=== PATIENT | female | born 1945 | race Caucasian/White ===

== ENCOUNTER 2019-08-29 07:57 | Outpatient (CLI) | payer MEDICARE, SELFPAY ==
[2019-08-29 08:50] LABS: Alanine Aminotransferase 13 U/L (4-35); Albumin Level 4.1 g/dL (3.5-5.1); Alkaline Phosphatase 81 U/L (38-126); Aspartate Amino Transferase 22 U/L (14-36); Bilirubin,Total 0.5 mg/dL (0.2-1.3); Blood Urea Nitrogen 13 mg/dL (7-17); Carbon Dioxide 26 mmol/L (22-30); Chloride 105 mmol/L (98-107); Cholesterol 198 mg/dL (0-200); Estimated Glomerular Filt Rate > 60; Glucose 97 mg/dL (65-105); HDL Direct 49 mg/dL; Sodium 139 mmol/L (137-145); Triglycerides 90 mg/dL (<150)
[2019-08-29 09:01] LABS: LDL Cholesterol Direct 111 mg/dL
[2019-08-29 09:14] LABS: Vitamin D 25 Hydroxy 33.2 ng/mL
== END 2019-08-29 07:58 | disposition home or self-care (01) ==
PROVIDERS: PCP Family Medicine; Visit Provider Family Medicine
DX: E78.2 Mixed hyperlipidemia (principal); E21.3 Hyperparathyroidism, unspecified; E55.9 Vitamin D deficiency, unspecified
CPT/HCPCS: 36415; 80053; 80061; 82306; 83970

== ENCOUNTER 2019-11-01 08:49 | Outpatient (CLI) | payer MEDICARE, SELFPAY ==
--- NOTE | ~2019-11-01 | DEXA_ITS ---
Bone Density Report Name: Yoanna Parikh Age: 74 Sex: Female Ethnicity: White Date of : 1945 Indication: postmenopausal osteoporosis; height loss; prior fracture; Referring Provider: CHAD ROTH Study: Bone densitometry was performed. Exam Date: November 01, 2019 Accession number: [id number] Bone Density: Region BMD T-score Z-score Classification AP Spine (L1-L4) 0.733 -2.9 -0.5 Osteoporosis Femoral Neck (Left) 0.549 -2.7 -0.6 Osteoporosis Total Hip (Left) 0.709 -1.9 -0.1 Osteopenia Total Hip Bilateral Avg 0.719 -1.9 -0.1 Osteopenia Femoral Neck (Right) 0.632 -2.0 0.1 Osteopenia Total Hip (Right) 0.728 -1.8 0.0 Osteopenia World Health Organization criteria for BMD impression classify patients as: Normal (T-score at or above -1.0), Osteopenia (T-score between -1.0 and -2.5), or Osteoporosis (T-score at or below -2.5). 10-year Fracture Risk: FRAX not reported because: Some T-score for Spine Total or Hip Total or Femoral Neck at or below -2.5 Prior hip or vertebral fracture Previous Exams: Region Exam Age BMD T-score BMD Change BMD Change Date g/cm2 vs Baseline vs Previous AP Spine(L1-L4) 11/01/2019 74 0.733 -2.9 -0.061(-7.7%)# 0.004(0.6%)# 06/01/2017 72 0.729 -2.9 -0.066(-8.2%)# -0.011(-1.5%)# 05/31/2015 70 0.740 -2.8 -0.054(-6.8%)# -0.042(-5.3%)# 11/28/2012 67 0.782 -2.4 -0.013(-1.6%)# -0.025(-3.1%)# 08/08/2010 65 0.806 -2.2 0.012(1.5%) -0.028(-3.4%)* 07/30/2008 63 0.835 -1.9 0.040(5.1%)* -0.008(-1.0%) 07/08/2007 62 0.843 -1.9 0.048(6.1%)* 0.047(5.9%)* 06/04/2006 61 0.796 -2.3 0.002(0.2%) 0.034(4.5%)* 06/02/2004 59 0.762 -2.6 -0.033(-4.1%)* -0.033(-4.1%)* 04/27/2002 57 0.794 -2.3 Total Hip(Left) 11/01/2019 74 0.709 -1.9 -0.094(-11.7%) -0.059(-7.7%)* 06/01/2017 72 0.767 -1.4 -0.035(-4.4%)# 0.005(0.6%) 05/31/2015 70 0.763 -1.5 -0.040(-5.0%)# -0.022(-2.8%)# 11/28/2012 67 0.785 -1.3 -0.018(-2.3%)# -0.062(-7.4%)# 08/08/2010 65 0.847 -0.8 0.044(5.5%)* 0.034(4.2%)* 07/30/2008 63 0.813 -1.1 0.010(1.2%) 0.008(1.0%) 07/08/2007 62 0.805 -1.1 0.002(0.3%) 0.006(0.7%) 06/04/2006 61 0.799 -1.2 -0.004(-0.5%) -0.017(-2.0%) 06/02/2004 59 0.816 -1.0 0.013(1.6%) 0.013(1.6%) 04/27/2002 57 0.803 -1.1 Total Hip(Right) 11/01/2019 74 0.728 -1.8 -0.116(-13.7%) -0.086(-10.6%) 06/01/2017 72 0.814 -1.0 -0.029(-3.5%)# 0.015(1.8%) 05/31/2015 70 0.799 -1.2 -0.044(-5.2%)# -0.014(-1.7%)# 11/28/2012 67 0.813 -1.1 -0.031(-3.6%)# -0.059(-6.8%)# 08/08/2010 65 0.873 -0.6 0.029
--- NOTE | ~2019-11-01 | MM_ITS ---
EXAMINATION: MM screening [facility]uel BI w yasir HISTORY: Screening mammogram TECHNIQUE: Craniocaudal and mediolateral oblique 3-D tomosynthesis images were obtained and synthetic 2-D images were generated. CAD analysis was submitted and interpreted. COMPARISON: 06/20/2018 diagnostic right digital mammogram 05/25/2018, 05/11/2017, 05/07/2016 bilateral digital screening mammogram examinations BREAST PARENCHYMAL COMPOSITION: There are scattered areas of fibroglandular density. FINDINGS: Benign intramammary lymph nodes are noted on the left. Stable mild fibroglandular asymmetry . . There is no evidence of suspicious mass, calcification, or architectural distortion to suggest kaylee gnancy in either breast. There has been no suspicious interval change. IMPRESSION: 1. No mammographic evidence of malignancy. 2. Recommend routine screening mammography in one year. BI-RADS Category 2: Benign finding(s). Reviewed, dictated and finalized at location A.
== END 2019-11-01 08:50 | disposition home or self-care (01) ==
PROVIDERS: PCP Family Medicine; Visit Provider Family Medicine
DX: Z12.31 Encounter for screening mammogram for malignant neoplasm of breast (principal); M81.0 Age-related osteoporosis without current pathological fracture; Z78.0 Asymptomatic menopausal state; R92.8 Other abnormal and inconclusive findings on diagnostic imaging of breast; M85.852 Other specified disorders of bone density and structure, left thigh; M85.851 Other specified disorders of bone density and structure, right thigh
CPT/HCPCS: 77063; 77067; 77080

== ENCOUNTER 2020-11-21 16:06 | Outpatient (CLI) | payer MEDICARE, SELFPAY ==
--- NOTE | ~2020-11-21 | MM_ITS ---
EXAMINATION: MM screening [facility] BI w yasir HISTORY: Screening mammogram TECHNIQUE: Craniocaudal and mediolateral oblique 3-D tomosynthesis images were obtained and synthetic 2-D images were generated. CAD analysis was submitted and interpreted. COMPARISON: 11/01/2019, 06/20/2018, 05/25/2018, 05/11/2017 BREAST PARENCHYMAL COMPOSITION: There are scattered areas of fibroglandular density. FINDINGS: There is no evidence of suspicious mass, calcification, or architectural distortion to sugg est malignancy in either breast. There has been no suspicious interval change. IMPRESSION: 1. No mammographic evidence of malignancy. 2. Recommend routine screening mammography in one year. BI-RADS Category 1: Negative Reviewed, dictated and finalized at location A.
== END 2020-11-21 16:07 | disposition home or self-care (01) ==
LOC: ANHIMG 16:10
PROVIDERS: PCP Family Medicine; Visit Provider Family Medicine
DX: Z12.31 Encounter for screening mammogram for malignant neoplasm of breast (principal)
CPT/HCPCS: 77063; 77067

== ENCOUNTER 2021-03-25 07:08 | Outpatient (CLI) | payer MEDICARE, SELFPAY ==
[2021-03-25 08:07] LABS: Hematocrit 40.1 % (37.0-47.0); Hemoglobin 12.9 g/dL (12.0-15.0); Mean Corpuscular HGB Conc 32.2 g/dl (32-36); Mean Corpuscular Hemoglobin 30.9 pg (26-34); Mean Corpuscular Volume 95.9 fl (80-100); Mean Platelet Volume 11.5 fl (7.4-10.4); Platelet Count Result 301 k/mm3 (150-375); Red Blood Count 4.18 M/mm3 (4.2-5.4); Red Cell Distribution Width 12.9 % (11.5-14.5)
[2021-03-25 08:17] LABS: Alanine Aminotransferase 16 U/L (4-35); Albumin Level 4.1 g/dL (3.5-5.1); Alkaline Phosphatase 80 U/L (38-126); Anion Gap 7 mmol/L (8-16); Aspartate Amino Transferase 22 U/L (14-36); Bilirubin,Total 0.5 mg/dL (0.2-1.3); Blood Urea Nitrogen 19 mg/dL (7-17); Calcium 10.3 mg/dL (8.4-10.2); Carbon Dioxide 25 mmol/L (22-30); Chloride 107 mmol/L (98-107); Cholesterol 194 mg/dL (0-200); Estimated Glomerular Filt Rate > 60; Glucose 100 mg/dL (65-110); HDL Direct 45 mg/dL; Potassium 3.8 mmol/L (3.4-5.0); Sodium 139 mmol/L (137-145); Triglycerides 89 mg/dL (<150)
[2021-03-25 08:28] LABS: LDL Cholesterol Direct 109 mg/dL
[2021-03-25 08:32] LABS: Hemoglobin A1C 5.5 % (<5.7)
[2021-03-25 09:18] LABS: Vitamin D 25 Hydroxy 27.4 ng/mL
[2021-04-11 23:51] LABS: Parathyroid Hormone Related Pr 9 pg/mL (11-20)
== END 2021-03-25 07:09 | disposition home or self-care (01) ==
LOC: ANHLAB 07:10
PROVIDERS: PCP Family Medicine; Visit Provider Family Medicine
DX: E61.1 Iron deficiency (principal); E21.0 Primary hyperparathyroidism; R53.83 Other fatigue; E55.9 Vitamin D deficiency, unspecified; E11.9 Type 2 diabetes mellitus without complications; E78.2 Mixed hyperlipidemia; R68.89 Other general symptoms and signs
CPT/HCPCS: 36415; 80053; 80061; 82306; 83036; 83519; 84443; 85027

== ENCOUNTER 2021-09-30 07:11 | Outpatient (CLI) | payer MEDICARE, SELFPAY ==
[2021-09-30 07:53] LABS: Alanine Aminotransferase 18 U/L (6-35); Albumin Level 4.2 g/dL (3.5-5.1); Alkaline Phosphatase 80 U/L (38-126); Anion Gap 9 mmol/L (8-16); Aspartate Amino Transferase 26 U/L (14-36); Bilirubin,Total 0.3 mg/dL (0.2-1.3); Blood Urea Nitrogen 12 mg/dL (7-17); Calcium 9.6 mg/dL (8.4-10.2); Carbon Dioxide 27 mmol/L (22-30); Chloride 104 mmol/L (98-107); Cholesterol 179 mg/dL (0-200); Estimated Glomerular Filt Rate > 60; Glucose 101 mg/dL (65-110); HDL Direct 43 mg/dL; Potassium 3.8 mmol/L (3.4-5.0); Sodium 140 mmol/L (137-145); Triglycerides 89 mg/dL (<150)
[2021-09-30 08:03] LABS: LDL Cholesterol Direct 96 mg/dL
[2021-10-04 00:02] LABS: Vitamin D 1,25 (OH)2 Total 59 pg/mL (18-72); Vitamin D2 1,25 (OH)2 9 pg/mL; Vitamin D3 1,25 (OH)2 50 pg/mL
== END 2021-09-30 07:12 | disposition home or self-care (01) ==
PROVIDERS: PCP Family Medicine; Visit Provider Physician Assistant
DX: E55.9 Vitamin D deficiency, unspecified (principal); Z13.1 Encounter for screening for diabetes mellitus; Z13.220 Encounter for screening for lipoid disorders; E78.2 Mixed hyperlipidemia
CPT/HCPCS: 36415; 80053; 80061; 82652

== ENCOUNTER 2022-01-28 07:43 | Outpatient (CLI) | payer MEDICARE, SELFPAY ==
--- NOTE | ~2022-01-28 | DEXA_ITS ---
Bone Density Report Name: JOSE RAUL BOLES Age: 77 Sex: Female Ethnicity: White Date of : 1945 Indication: postmenopausal osteoporosis; monitoring treatment; height loss; prior fracture; Referring Provider: CHAD ROTH Study: Bone densitometry was performed. Exam Date: January 28, 2022 Accession number: [id number] Bone Density: Region BMD T-score Z-score Classification AP Spine(L1-L4) 0.739 -2.8 -0.3 Osteoporosis Femoral Neck (Left) 0.552 -2.7 -0.5 Osteoporosis Total Hip (Left) 0.711 -1.9 0.0 Osteopenia Femoral Neck (Right) 0.634 -1.9 0.2 Osteopenia Total Hip (Right) 0.726 -1.8 0.1 Osteopenia Total Hip Mean 0.718 -1.9 0.1 Osteopenia World Health Organization criteria for BMD impression classify patients as: Normal (T-score at or above -1.0), Osteopenia (T-score between -1.0 and -2.5), or Osteoporosis (T-score at or below -2.5). 10-year Fracture Risk: FRAX not reported because: Some T-score for Spine Total or Hip Total or Femoral Neck at or below -2.5 Treated for osteoporosis Previous Exams: Region Exam Age BMD T-score BMD Change BMD Change Date g/cm2 vs Baseline vs Previous AP Spine (L1-L4) 01/28/2022 77 0.739 -2.8 -0.043 (-5.5%) 0.005 (0.7%) 11/01/2019 74 0.733 -2.9 -0.048 (-6.2%) 0.004 (0.6%)# 06/01/2017 72 0.729 -2.9 -0.053 (-6.8%) -0.011 (-1.5%) 05/31/2015 70 0.740 -2.8 -0.042 (-5.3%) -0.042 (-5.3%) 11/28/2012 67 0.782 -2.4 Total Hip(Left) 01/28/2022 77 0.711 -1.9 -0.074 (-9.4%) 0.002 (0.3%) 11/01/2019 74 0.709 -1.9 -0.076 (-9.7%) -0.059 (-7.7%) 06/01/2017 72 0.767 -1.4 -0.017 (-2.2%) 0.005 (0.6%) 05/31/2015 70 0.763 -1.5 -0.022 (-2.8%) -0.022 (-2.8%) 11/28/2012 67 0.785 -1.3 Total Hip(Right) 01/28/2022 77 0.726 -1.8 -0.087 (-10.7% -0.002 (-0.2%) 11/01/2019 74 0.728 -1.8 -0.085 (-10.5% -0.086 (-10.6% 06/01/2017 72 0.814 -1.0 0.001 (0.1%)# 0.015 (1.8%) 05/31/2015 70 0.799 -1.2 -0.014 (-1.7%) -0.014 (-1.7%) 11/28/2012 67 0.813 -1.1 *Denotes significance at 95% confidence level, LSC for AP Spine = 0.022 g/cm2, LSC for Total Hip = 0.027 g/cm2 # Denotes dissimilar scan types or analysis methods Clinical Information Provided by Patient: Has had a low trauma fracture Is being treated for osteoporosis Has used the following medications: Fosamax (i.e. alendronate) Patient maximum height was 62.5 Menopause Age: 46 No regular weight bearing exercise Drinks caffeinated beverages Onset
--- NOTE | ~2022-01-28 | MM_ITS ---
EXAMINATION: MM screening [facility]uel BI w yasir HISTORY: Screening TECHNIQUE: Craniocaudal and mediolateral oblique 3-D tomosynthesis images were obtained and synthetic 2-D images were generated. CAD analysis was submitted and interpreted. COMPARISON: Comparison to multiple prior studies sequentially, with oldest reviewed study dated 05/07. BREAST PARENCHYMAL COMPOSITION: There are scattered areas of fibroglandular density. FINDINGS: There is no evidence of suspicious mass, calcification, or architectural distortion to sugg est malignancy in either breast. There has been no suspicious interval change. IMPRESSION: 1. No mammographic evidence of malignancy. 2. Recommend routine screening mammography in one year. BI-RADS Category 1: Negative Reviewed, dictated and finalized at location B. N PERSON
[2022-01-28 09:16] LABS: Alanine Aminotransferase 23 U/L (6-35); Albumin Level 4.1 g/dL (3.5-5.1); Alkaline Phosphatase 82 U/L (38-126); Anion Gap 8 mmol/L (8-16); Aspartate Amino Transferase 27 U/L (14-36); Bilirubin,Total 0.5 mg/dL (0.2-1.3); Blood Urea Nitrogen 14 mg/dL (7-17); Calcium 9.4 mg/dL (8.4-10.2); Carbon Dioxide 26 mmol/L (22-30); Chloride 106 mmol/L (98-107); Estimated Glomerular Filt Rate > 60; Glucose 99 mg/dL (65-110); Potassium 3.8 mmol/L (3.4-5.0); Sodium 140 mmol/L (137-145)
[2022-01-28 09:35] LABS: Vitamin D 25 Hydroxy 24.8 ng/mL
== END 2022-01-28 07:44 | disposition home or self-care (01) ==
PROVIDERS: PCP Family Medicine; Visit Provider Family Medicine
DX: Z12.31 Encounter for screening mammogram for malignant neoplasm of breast (principal); Z78.0 Asymptomatic menopausal state; M81.0 Age-related osteoporosis without current pathological fracture; E21.3 Hyperparathyroidism, unspecified; M85.851 Other specified disorders of bone density and structure, right thigh; M85.852 Other specified disorders of bone density and structure, left thigh
CPT/HCPCS: 36415; 77063; 77067; 77080; 80053; 82306; 83970

== ENCOUNTER 2022-04-09 14:55 | Outpatient (CLI) | payer MEDICARE, SELFPAY ==
--- NOTE | ~2022-04-09 | US_ITS ---
EXAMINATION: US carotid duplex BI DATE: 04/09/2022 15:38 INDICATION: Paresthesias of the scan. Numbness. Left arm pain. TECHNIQUE: Grayscale, color Doppler, and pulsed Doppler images of the cervical carotid arteries were obtained. The degree of vessel stenosis is placed in one of the following categories: normal, <50%, 5 0-69%, >=70% but less than near-occlusion, near-occlusion, or total occlusion. Note that percent sten osis relative to normal distal artery lumen diameter is indirectly measured from velocity measurement s as described by Hudson, et al. Radiology 2003; 229:340-346. Notes: Normal: Peak systolic velocity <125 centimeters/sec and no plaque <50%. Peak systolic velocity <125 ( EDV <40; ICA/CCA PSV ratio <2.0; used these factors only a tandem lesions or low cardiac output or co ntralateral disease) 50-69 %: PSV 125-230 (EDV 40-100; ratio 2-4) >= 70% but less than near occlusion: PSV greater than 230 (EDV > 100; ratio> 4.0) Near Occlusion: PSV that is variable; markedly narrowed lumen Occlusion: Absent flow on color/spectral Doppler and no lumen on kennedy scale. COMPARISON: Ultrasound dated 02/13/2014. FINDINGS: RIGHT: The right common carotid artery (CCA) peak systolic velocity (PSV) is 65 cm/s. The right internal car otid artery (ICA) PSV is 71 cm/s. The right ICA end-diastolic velocity (EDV) is 26 cm/s. The right IC A/CCA PSV ratio is 1.1. The external carotid artery (ECA) PSV is 63 cm/s. There is antegrade flow in the right vertebral artery. LEFT: The left CCA PSV is 81 cm/s. The left ICA PSV is 71 cm/s. The left ICA EDV is 27 cm/s. The left ICA/C CA PSV ratio is 0.9. The ECA PSV is 37 cm/s. There is antegrade flow in the left vertebral artery. IMPRESSION: 1. Less than 50% stenosis in the right internal carotid artery by sonographic criteria. 2. Less than 50% stenosis in the left internal carotid artery by sonographic criteria. Reviewed, dictated and finalized at location A. NUE RESEARCH ANALYST IMPRESSION: 1. Less than 50% stenosis in the right internal carotid artery by sonographic keyur keating. 2. Less than 50% stenosis in the left internal carotid artery by sonographic shelley rascon.
== END 2022-04-09 14:56 | disposition home or self-care (01) ==
PROVIDERS: PCP Family Medicine; Visit Provider Family Medicine
DX: R20.2 Paresthesia of skin (principal); I65.23 Occlusion and stenosis of bilateral carotid arteries
CPT/HCPCS: 93880

== ENCOUNTER 2022-12-17 07:04 | Outpatient (CLI) | payer MEDICARE, SELFPAY ==
[2022-12-17 07:52] LABS: Basophils Percent Auto 0.8 % (0.2-1.2); Eosinophils Absolute Auto 0.1 K/mm3 (0-0.3); Eosinophils Percent Auto 2.8 % (0-4.4); Hematocrit 38.5 % (37.0-47.0); Hemoglobin 11.8 g/dL (12.0-15.0); Immature Granulocyte Absolute 0.01 K/mm3 (0.00-0.031); Immature Granulocyte Percent A 0.2 % (0-0.5); Lymphocytes Absolute Auto 2.29 K/mm3 (0.9-3.2); Mean Corpuscular HGB Conc 30.6 g/dl (32-36); Mean Corpuscular Hemoglobin 27.1 pg (26-34); Mean Corpuscular Volume 88.5 fl (80-100); Monocytes Absolute Auto 0.5 K/mm3 (0.1-0.6); Neutrophils Absolute Auto 2.1 K/mm3 (1.3-6.7); Neutrophils Percent Auto 41.2 % (45.5-73.1); Platelet Count Result 332 k/mm3 (150-375); Red Blood Count 4.35 M/mm3 (4.2-5.4); Red Cell Distribution Width 16.1 % (11.5-14.5); White Blood Count 5.1 K/mm3 (4.5-10.0)
[2022-12-17 08:01] LABS: Alanine Aminotransferase 17 U/L (6-35); Albumin Level 4.2 g/dL (3.5-5.1); Alkaline Phosphatase 85 U/L (38-126); Anion Gap 7 mmol/L (8-16); Aspartate Amino Transferase 22 U/L (14-36); Bilirubin,Total 0.7 mg/dL (0.2-1.3); Blood Urea Nitrogen 13 mg/dL (7-17); Calcium 9.9 mg/dL (8.4-10.2); Carbon Dioxide 26 mmol/L (22-30); Chloride 105 mmol/L (98-107); Cholesterol 191 mg/dL (0-200); Estimated Glomerular Filt Rate > 60; Glucose 98 mg/dL (65-110); HDL Direct 48 mg/dL; Potassium 3.6 mmol/L (3.4-5.0); Sodium 138 mmol/L (137-145); Triglycerides 93 mg/dL (<150)
[2022-12-17 08:13] LABS: LDL Cholesterol Direct 104 mg/dL; Parathyroid Intact 180.2 pg/mL (7.5-53.5)
[2022-12-17 08:24] LABS: Vitamin D 25 Hydroxy 24.4 ng/mL
[2022-12-19 13:14] LABS: Ionized Calcium 5.4 mg/dL (4.7-5.5)
== END 2022-12-17 07:05 | disposition home or self-care (01) ==
PROVIDERS: PCP Family Medicine; Visit Provider Family Medicine
DX: E78.2 Mixed hyperlipidemia (principal); Z00.00 Encounter for general adult medical examination without abnormal findings; E55.9 Vitamin D deficiency, unspecified; I10 Essential (primary) hypertension; R53.83 Other fatigue
CPT/HCPCS: 36415; 80053; 80061; 82306; 82330; 83970; 85025

== ENCOUNTER 2023-01-26 01:14 | Day surgery (SDC) | payer MEDICARE, SELFPAY ==
[2023-01-12 13:05] VITALS: BMI 28.3
--- NOTE | 2023-01-22 13:52 | SUR.PREOP ---
Patient called regarding upcoming procedure. Message left on patient's voicemail regarding preop instructions, appointment times, and procedure prep.
[2023-01-26 08:09] VITALS: BP 135/89; PULSE 83; RESP 16; TEMP 36.2; O2SAT 99; BMI 29.5
[2023-01-26] MEDS: LACTATED RINGERS 1,000 ML 150 ML IV CONT (08:17)
--- NOTE | 2023-01-26 08:24 | PM.HPGS ---
History of Present Illness History of Present Illness Consent: Risks, benefits, and alternatives have been discussed and questions answered. Patient agrees to proceed with procedure. Chief complaint: hx of colon polyps Narrative: Yoanna Parikh is a 78 year old female Presents for screening colonoscopy. Patient has a history of adenomatous colon polyps in the past. Most recent colonoscopy 2014 had a benign adenomatous colon polyp. Patient reports her current weight appetite bowel movements are normal. She denies abdominal pain. She has had no bleeding. Family history is noncontributory. Review of Systems Review of Systems: Review of systems noncontributory. [facility] Past Medical History Medical History Acne rosacea Chronic left-sided low back pain without sciatica Closed burst fracture of thoracic vertebra Essential (primary) hypertension FH: brain aneurysm Gastroesophageal reflux disease Mixed hyperlipidemia Postmenopausal osteoporosis Prediabetes Primary hyperparathyroidism Vitamin B12 deficiency Vitamin D deficiency Family History Family History Mother Hypertension Father Hypertension Other Family history of cardiovascular disease Family history of chronic obstructive pulmonary disease Family history of thyroid disease Social History Social History Smoking status: Never smoker Second hand tobacco smoke exposure: No Alcohol intake: never Substance use: never Substance use type: does not use Lack of Transportation: No Lack of Food: Never True Current Housing: I Have Housing Concerned About Future Housing: No Difficulty Paying Gas/Electric Bills: No Difficulty Paying for Meds: No Currently Unemployed: No Education: Master's Degree or Higher Difficulty w/ Childcare or Family Care: No Living arrangements: with family Occupation/Education: retired Gender identity (if verbalized by the patient): Female Spiritual care concerns: No Agree to blood products: Yes Meds Home Medications and Allergies Home Medications Medication Instructions Recorded Confirmed Type alendronate 70 mg tablet (Fosamax) 70 mg PO WEEKLY #14 tabs 10/02/21 01/26/23 Rx amlodipine 5 mg tablet See Rx Instructions .Route 09/30/22 01/26/23 Rx .COMPLEX #90 tabs losartan 50 mg tablet 50 mg PO DAILY #90 tabs 10/07/22 01/26/23 Rx Allergies Allergy/AdvReac Type Severity Reaction Status Date / Time lisinopril AdvReac Mild Cough Verified 01/26/23 08:08 Vital Signs Vital Signs - 24 hr 01/26/23 08:09 Temperature 97.2 F L Pulse Rate 83 Respiratory Rate 16 Blood Pressure 135/89 Pulse Oximetry 99 Oxygen Delivery Room Air Exam Narrative: Physical exam reveals patient to be alert. Vital signs stable. HEENT exam is unremarkable. Patient is anicteric. Lungs are clear to auscultation and percussion. Heart is without murmur or extra sounds. Abdomen bowel sounds are present soft nontender with no organomegaly. Digital external rectal exam is normal. Assessment and Plan Assessment and plan (1) H/O adenomatous polyp of colon: Code(s): Z86.010 - Personal history of colonic polyps Status: Acute Assessment and Plan: Patient has a history of colon polyps in the past. Plan for surveillance colonoscopy at this time. Further recommendations may be given after endoscopy.
--- NOTE | 2023-01-26 09:35 | WPDANESEPPF ---
Anes - Initial Pre Proc Eval Procedure: Operation Date: 01/26/23 09:30 Proposed Procedures p Colonoscopy - Gregory Carbajal MD Date/Time: 01/26/23 09:35 Surgeon: Gregory Carbajal MD Pre Op Diagnosis: hx of colon polyps Patient Data Age: 78 Gender: F Height: 1.55 m Weight: 70.8 kg Last Vital Signs Temp 97.2 F L 01/26/23 08:09 Pulse 83 01/26/23 08:09 Resp 16 01/26/23 08:09 BP 135/89 01/26/23 08:09 Pulse Ox 99 01/26/23 08:09 O2 Del Method Room Air 01/26/23 08:09 Allergies Allergy/AdvReac Type Severity Reaction Status Date / Time lisinopril AdvReac Mild Cough Verified 01/26/23 08:08 Home Medications Medication Instructions Recorded Confirmed Type alendronate 70 mg tablet (Fosamax) 70 mg PO WEEKLY #14 tabs 10/02/21 01/26/23 Rx amlodipine 5 mg tablet See Rx Instructions .Route 09/30/22 01/26/23 Rx .COMPLEX #90 tabs losartan 50 mg tablet 50 mg PO DAILY #90 tabs 10/07/22 01/26/23 Rx Patient hx anesthesia problems: none Family hx anesthesia problems: none Results Review: All pre-operative results and documents have been reviewed as part of the pre-operative evaluation. [facility] Past Medical History Medical History Acne rosacea Chronic left-sided low back pain without sciatica Closed burst fracture of thoracic vertebra Essential (primary) hypertension FH: brain aneurysm Gastroesophageal reflux disease Mixed hyperlipidemia Postmenopausal osteoporosis Prediabetes Primary hyperparathyroidism Vitamin B12 deficiency Vitamin D deficiency Family History Family History Mother Hypertension Father Hypertension Other Family history of cardiovascular disease Family history of chronic obstructive pulmonary disease Family history of thyroid disease Social History Social History Smoking status: Never smoker Second hand tobacco smoke exposure: No Alcohol intake: never Substance use: never Substance use type: does not use Lack of Transportation: No Lack of Food: Never True Current Housing: I Have Housing Concerned About Future Housing: No Difficulty Paying Gas/Electric Bills: No Difficulty Paying for Meds: No Currently Unemployed: No Education: Master's Degree or Higher Difficulty w/ Childcare or Family Care: No Living arrangements: with family Occupation/Education: retired Gender identity (if verbalized by the patient): Female Spiritual care concerns: No Agree to blood products: Yes Anes - Eval Final PreProcedure Day of Procedure 01/26/23 09:35 Patient weight: normal Heart: regular rate and rhythm Lungs: clear to auscultation Airway: Mallampati scale class II Neurological: alert and oriented Last oral intake: >/= 8 hours ASA classification: III Emergent: no Anesthetic plan: proceed Anesthesia type and monitoring: general GIVS and standard monitoring Results Review: All pre-operative results and documents have been reviewed as part of the pre-operative evaluation. Informed Consent: The patient's anesthetic plan and its attendant risks and benefits were discussed with the patient/family/POA. Questions were solicited and answers provided to the satisfaction of the patient/family/POA.
[2023-01-26 10:00] VITALS: BP 113/66; PULSE 75; RESP 22; O2SAT 99
[2023-01-26 10:10] VITALS: BP 155/88; PULSE 63; RESP 21; O2SAT 100
[2023-01-26 10:20] VITALS: BP 135/85; PULSE 72; RESP 20; O2SAT 100
== END 2023-01-26 10:31 | disposition home or self-care (01) ==
PROVIDERS: PCP Family Medicine; Visit Provider Internal Medicine Gastroenterology
PROC: 0DJD8ZZ Inspection of Lower Intestinal Tract, Via Natural or Artificial Opening Endoscopic (ICD-10-PCS; CPT 45378; principal; 2023-01-26 09:30)
DX: Z12.11 Encounter for screening for malignant neoplasm of colon (principal); K63.5 Polyp of colon; K64.8 Other hemorrhoids; I10 Essential (primary) hypertension; M81.0 Age-related osteoporosis without current pathological fracture
CPT/HCPCS: 45385; 88305; J2704; J7120

== ENCOUNTER 2023-02-06 08:06 | Outpatient (CLI) | payer MEDICARE, SELFPAY ==
--- NOTE | ~2023-02-06 | MM_ITS ---
EXAMINATION: MM screening samuel BI w yasir HISTORY: Screening mammogram TECHNIQUE: Craniocaudal and mediolateral oblique 3-D tomosynthesis images were obtained and synthetic 2-D images were generated. CAD analysis was submitted and interpreted. COMPARISON: 01/28/2022, 11/21/2020, 11/01/2019 bilateral screening mammogram examinations BREAST PARENCHYMAL COMPOSITION: There are scattered areas of fibroglandular density. FINDINGS: There is no evidence of suspicious mass, calcification, or architectural distortion to sugg est malignancy in either breast. There has been no suspicious interval change. IMPRESSION: 1. No mammographic evidence of malignancy. 2. Recommend routine screening mammography in one year. BI-RADS Category 1: Negative Reviewed, dictated and finalized at location A. ER TURNER
== END 2023-02-06 08:07 | disposition home or self-care (01) ==
LOC: ANHIMG 08:08
PROVIDERS: PCP Family Medicine; Visit Provider Family Medicine
DX: Z12.31 Encounter for screening mammogram for malignant neoplasm of breast (principal)
CPT/HCPCS: 77063; 77067

== ENCOUNTER 2023-04-08 13:07 | Outpatient (CLI) | payer MEDICARE, SELFPAY ==
--- NOTE | ~2023-04-08 | XR_ITS ---
EXAMINATION: XR foot RT min 3V DATE: 04/08/2023 13:25 INDICATION: Right foot pain TECHNIQUE: Dorsoplantar, lateral, and 2 oblique views of the right foot were obtained. COMPARISON: None. FINDINGS: There is advanced osteoarthritis of the first and fourth metatarsophalangeal joints. Modera te osteoarthritis is noted in multiple interphalangeal joints. There is no fracture. The soft tissues are unremarkable. IMPRESSION: 1. Polyarticular osteoarthritis without acute osseous abnormality. Reviewed, dictated and finalized at location L. VITIES COORDINATOR
== END 2023-04-08 13:08 | disposition home or self-care (01) ==
PROVIDERS: PCP Family Medicine; Visit Provider Family Medicine
DX: M79.671 Pain in right foot (principal); M19.071 Primary osteoarthritis, right ankle and foot
CPT/HCPCS: 73630

== ENCOUNTER 2023-04-18 13:38 | Emergency (ER) | payer MEDICARE, SELFPAY ==
--- NOTE | 2023-04-18 13:41 | ED.GENADULT ---
HPI - General Adult General Chief complaint: Epistaxis Stated complaint: Nose Bleed Time Seen by Provider: 04/18/23 13:40 Source: patient Mode of arrival: ambulatory Limitations: no limitations History of Present Illness HPI narrative: Year old female patient presents to [facility] with complaints of a nose bleed. Patient states she had a minor nosebleed yesterday and states that did not last that long and this morning she had a nosebleed that did not last that long but after rastafari today had another nosebleed that took about 20 minutes to stop. Patient states his only been in her left near. Denies any blood thinners or having issues with nosebleeds in the past. Patient denies any recent trauma. Patient states she came in today to get checked out she was concerned that it might be related to her blood pressure. patient denies feeling lightheaded, dizzy Related Data Allergies Allergy/AdvReac Type Severity Reaction Status Date / Time lisinopril AdvReac Mild Cough Verified 04/18/23 13:48 Review of Systems Review of Systems: CONSTITUTIONAL: Denies fever, chills, or sweats. EYES: Denies visual changes, redness, or discharge. ENT: Denies rhinorrhea, congestion, sore throat, or otalgia. positive nosebleed CARDIOVASCULAR: Denies chest pain, palpitations, or edema. RESPIRATORY: Denies cough or dyspnea. GASTROINTESTINAL: Denies abdominal pain, nausea, vomiting, or diarrhea. GENITOURINARY: Denies dysuria or hematuria. SKIN: Denies rash or itching. MUSCULOSKELETAL: Denies back pain, joint pain, or myalgia. NEUROLOGIC: Denies headache, numbness, or weakness. PSYCHIATRIC: Denies anxiety or depression. [facility] Past Medical History Medical History Acne rosacea Chronic left-sided low back pain without sciatica Closed burst fracture of thoracic vertebra Essential (primary) hypertension FH: brain aneurysm Gastroesophageal reflux disease Mixed hyperlipidemia Postmenopausal osteoporosis Prediabetes Primary hyperparathyroidism Vitamin B12 deficiency Vitamin D deficiency Family History Family History Mother Hypertension Father Hypertension Other Family history of cardiovascular disease Family history of chronic obstructive pulmonary disease Family history of thyroid disease Social History Social History (Reviewed 04/18/23 @ 14:09 by MARILU Hernandez Smoking status: Never smoker Second hand tobacco smoke exposure: No Alcohol intake: never Substance use: never Substance use type: does not use Lack of Transportation: No Lack of Food: Never True Current Housing: I Have Housing Concerned About Future Housing: No Difficulty Paying Gas/Electric Bills: No Difficulty Paying for Meds: No Currently Unemployed: No Education: Master's Degree or Higher Difficulty w/ Childcare or Family Care: No Living arrangements: with family Occupation/Education: retired Gender identity (if verbalized by the patient): Female Spiritual care concerns: No Agree to blood products: Yes Comments CONSTITUTIONAL: Denies fever, chills, or sweats. EYES: Denies visual changes, redness, or discharge. ENT: Denies rhinorrhea, congestion, sore throat, or otalgia. CARDIOVASCULAR: Denies chest pain, palpitations, or edema. RESPIRATORY: Denies cough or dyspnea. GASTROINTESTINAL: Denies abdominal pain, nausea, vomiting, or diarrhea. GENITOURINARY: Denies dysuria or hematuria. SKIN: Denies rash or itching. MUSCULOSKELETAL: Denies back pain, joint pain, or myalgia. NEUROLOGIC: Denies headache, numbness, or weakness. PSYCHIATRIC: Denies anxiety or depression. Exam Narrative: GENERAL: Well-appearing, well-nourished, and in no acute distress. HEAD: Normocephalic, atraumatic. EYES: PERRLA and EOMI. ENT: Nares clear, no rhinorrhea , no current epistaxis. Mucous membranes moist. patient's nose appears to be c
[2023-04-18 13:48] VITALS: BP 116/84; PULSE 99; RESP 18; TEMP 36.7; O2SAT 100
[2023-04-18 13:49] VITALS: BP 116/84; PULSE 99; RESP 18; TEMP 36.7; O2SAT 100
== END 2023-04-18 14:42 | disposition home or self-care (01) ==
PROVIDERS: Emergency Provider Nurse Practitioner Family; PCP Family Medicine
DX: R04.0 Epistaxis (principal); E78.2 Mixed hyperlipidemia; I10 Essential (primary) hypertension
CPT/HCPCS: 99211; G0463

== ENCOUNTER 2023-04-19 21:36 | Emergency (ER) | payer MEDICARE, SELFPAY ==
[2023-04-19] VITALS (10 sets, daily range): BP systolic 107–138; BP diastolic 74–88; PULSE 81–106; RESP 17–22; TEMP 36.6; O2SAT 94–98
--- NOTE | 2023-04-19 22:22 | PC.NURSE ---
Family came to receptionist airline lounge desk asking for assistance with getting pt water. Explained to family reasons we ask for pt to not eat or drink. A couple min later, family member came back up stating pt was not responding and had eyes closed. This RN to pt who is unresponsive. Wheelchair obtained and pt was awake, but not following commands well. Assisted to wheelchair but pt unable to place own feet onto foot rests. Pt appears pale. Pt brought back to room by RN via wheelchair.
--- NOTE | 2023-04-19 22:32 | ECG_ITS ---
Measurements Intervals [place] Rate: 82 P: 20 DC: 147 QRS: 95 QRSD: 94 T: 24 QT: 368 QTc: 430 Interpretive Statements ALTERNATE LEAD PLACEMENT: V1: V1, V2: V2, V3: V3R, V4: V4, V5: V5, V6: V6 SINUS RHYTHM MISSING LEAD V3 RSR' IN V1 OR V2, CONSIDER RIGHT VENTRICULAR HYPERTROPHY OR RIGHT VCD BORDERLINE T WAVE ABNORMALITY- INFERIOR LEADS BASELINE ARTIFACT- I, II, III BORDERLINE ECG NO PREVIOUS ECG AVAILABLE FOR COMPARISON Electronically Signed On 04-20-2023 6:47:28 [employer] by Markus Lewis D.O.
[2023-04-19 22:40] LABS: Basophils Percent Auto 0.4 % (0.2-1.2); Eosinophils Absolute Auto 0.1 K/mm3 (0-0.3); Hematocrit 33.6 % (37.0-47.0); Hemoglobin 10.2 g/dL (12.0-15.0); Immature Granulocyte Absolute 0.03 K/mm3 (0.00-0.031); Immature Granulocyte Percent A 0.3 % (0-0.5); Lymphocytes Percent Auto 42.2 % (18.3-44.2); Mean Corpuscular HGB Conc 30.4 g/dl (32-36); Mean Corpuscular Hemoglobin 27.9 pg (26-34); Mean Corpuscular Volume 91.8 fl (80-100); Mean Platelet Volume 10.9 fl (7.4-10.4); Monocytes Absolute Auto 0.9 K/mm3 (0.1-0.6); Monocytes Percent Auto 8.8 % (2.6-8.5); Neutrophils Absolute Auto 4.9 K/mm3 (1.3-6.7); Neutrophils Percent Auto 47.3 % (45.5-73.1); Platelet Count Result 334 k/mm3 (150-375); Red Blood Count 3.66 M/mm3 (4.2-5.4); Red Cell Distribution Width 15.8 % (11.5-14.5); White Blood Count 10.4 K/mm3 (4.5-10.0)
[2023-04-19 22:52] LABS: Alanine Aminotransferase 22 U/L (6-35); Albumin Level 3.9 g/dL (3.5-5.1); Alkaline Phosphatase 70 U/L (38-126); Anion Gap 10 mmol/L (8-16); Aspartate Amino Transferase 27 U/L (14-36); Bilirubin,Total 0.3 mg/dL (0.2-1.3); Blood Urea Nitrogen 26 mg/dL (7-17); Calcium 11.2 mg/dL (8.4-10.2); Carbon Dioxide 22 mmol/L (22-30); Chloride 108 mmol/L (98-107); Estimated CRCL calculation 52 ml/min; Estimated Glomerular Filt Rate > 60; Glucose 152 mg/dL (65-110); Potassium 3.6 mmol/L (3.4-5.0); Sodium 140 mmol/L (137-145)
[2023-04-20 00:06] VITALS: PULSE 87; RESP 20; O2SAT 96
[2023-04-20 00:30] VITALS: PULSE 85; RESP 20; O2SAT 98
[2023-04-20 00:32] VITALS: BP 125/76; PULSE 87; RESP 16; O2SAT 97
--- NOTE | 2023-04-20 00:49 | PC.NURSE ---
Patient states that she is feeling much better and stronger and would like to leave. Patient was advised to go to nearest emergency department if any life concerning events happened.
== END 2023-04-20 01:35 | disposition left against medical advice (07) ==
LOC: ANHED 04-20 00:58
PROVIDERS: Emergency Provider Emergency Medicine; PCP Family Medicine
DX: R04.0 Epistaxis (principal)
CPT/HCPCS: 36415; 80053; 85025; 86850; 86900; 86901; 93005; 99199

== ENCOUNTER 2023-10-01 07:32 | Outpatient (CLI) | payer MEDICARE, SELFPAY ==
[2023-10-01 07:56] LABS: Basophils Percent Auto 0.7 % (0.2-1.2); Eosinophils Absolute Auto 0.1 K/mm3 (0-0.3); Eosinophils Percent Auto 2.2 % (0-4.4); Hematocrit 38.5 % (37.0-47.0); Hemoglobin 11.7 g/dL (12.0-15.0); Immature Granulocyte Absolute 0.01 K/mm3 (0.00-0.031); Immature Granulocyte Percent A 0.2 % (0-0.5); Lymphocytes Absolute Auto 2.15 K/mm3 (0.9-3.2); Lymphocytes Percent Auto 38.8 % (18.3-44.2); Mean Corpuscular HGB Conc 30.4 g/dl (32-36); Mean Corpuscular Hemoglobin 25.6 pg (26-34); Mean Corpuscular Volume 84.2 fl (80-100); Mean Platelet Volume 10.7 fl (7.4-10.4); Monocytes Absolute Auto 0.5 K/mm3 (0.1-0.6); Monocytes Percent Auto 9.6 % (2.6-8.5); Neutrophils Absolute Auto 2.7 K/mm3 (1.3-6.7); Neutrophils Percent Auto 48.5 % (45.5-73.1); Platelet Count Result 329 k/mm3 (150-375); Red Blood Count 4.57 M/mm3 (4.2-5.4); Red Cell Distribution Width 19.7 % (11.5-14.5); White Blood Count 5.5 K/mm3 (4.5-10.0)
[2023-10-01 08:06] LABS: Alanine Aminotransferase 14 U/L (6-35); Albumin Level 4.2 g/dL (3.5-5.1); Alkaline Phosphatase 79 U/L (38-126); Anion Gap 9 mmol/L (4-12); Aspartate Amino Transferase 24 U/L (14-36); Bilirubin,Total 0.5 mg/dL (0.2-1.3); Blood Urea Nitrogen 13 mg/dL (7-17); Calcium 9.8 mg/dL (8.4-10.2); Carbon Dioxide 26 mmol/L (22-30); Chloride 104 mmol/L (98-107); Cholesterol 163 mg/dL (0-200); Estimated Glomerular Filt Rate > 60; Glucose 99 mg/dL (65-110); HDL Direct 43 mg/dL; Sodium 139 mmol/L (137-145); Triglycerides 101 mg/dL (<150)
[2023-10-01 08:18] LABS: LDL Cholesterol Direct 91 mg/dL
[2023-10-01 08:49] LABS: Iron 58 ug/dL (37-170)
[2023-10-01 08:58] LABS: Percent Iron Saturation 14 % (20-50)
[2023-10-01 09:20] LABS: Vitamin D 25 Hydroxy 19.4 ng/mL
[2023-10-01 09:25] LABS: Ferritin 6.43 ng/mL (11.1-264)
== END 2023-10-01 07:33 | disposition home or self-care (01) ==
LOC: ANHLAB 07:36
PROVIDERS: PCP Family Medicine; Visit Provider Physician Assistant Medical
DX: E61.1 Iron deficiency (principal); E78.2 Mixed hyperlipidemia; R73.03 Prediabetes; E55.9 Vitamin D deficiency, unspecified
CPT/HCPCS: 36415; 80053; 80061; 82306; 82728; 83036; 83540; 83550; 85025

== ENCOUNTER 2024-02-10 13:33 | Observation (INO) | payer MEDICARE, SELFPAY ==
--- NOTE | ~2024-02-10 | CT_ITS ---
EXAMINATION: CT lumbar spine wo con DATE: 02/10/2024 14:57 INDICATION: Low back pain post fall TECHNIQUE: Computed tomography (CT) of the lumbar spine was performed without intravenous contrast. A utomated exposure control and iterative reconstruction technique were employed. The dose-length produ ct was 497.30 mGy-cm. COMPARISON: Lumbar spine radiographs dated 12/02/2017 FINDINGS: 10 degrees thoracolumbar levocurvature. Sagittal alignment is normal. Chronic T12 burst fracture with 80% central vertebral body height loss and 5 mm central retropulsion. Mild to moderate left-sided pr edominant disc height loss at L5-S1. Mild right posterior disc height loss at L2-L3. Large sliding-ty pe hiatal hernia. Splenic calcifications consistent with old granulomatous disease. Nondisplaced sagi ttally oriented fracture with buckling of the anterior cortex along the right sacral ala. The followi ng disc levels are specifically discussed: T11-T12: Retropulsion of the posterior wall of T12. There is fusion across the bilateral facet joints . There is mild bilateral neural foraminal stenosis. There is mild central canal stenosis. T12-L1: There is minimal retropulsion along the inferior margin of T12. There is mild bilateral facet joint osteoarthritis. There is mild right neural foraminal stenosis. There is mild central canal kala nosis. L1-L2: There is mild bilateral facet joint osteoarthritis. There is mild bilateral neural foraminal s tenosis. There is no central canal stenosis. L2-L3: There is mild right facet joint osteoarthritis. There is mild right neural foraminal stenosis. There is no central canal stenosis. L3-L4: Disc is bulging. There is moderate right and severe left facet joint osteoarthritis. There is mild left and moderate right neural foraminal stenosis. There is mild to moderate central canal steno sis. L4-L5: Disc is bulging. There is left and severe right facet joint osteoarthritis. There is mild righ t and mild left neural foraminal stenosis. There is mild to moderate central canal stenosis. L5-S1: Disc is bulging. There is severe left and moderate right facet joint osteoarthritis. There is mild right and moderate left neural foraminal stenosis. There is no central canal stenosis. IMPRESSION: 1. Chronic T12 burst fracture. 2. Nondisplaced acute fracture of the right sacral ala. 3. 10 degrees thoracolumbar levocurvature with mild spondylosis. 4. Large sliding-type hiatal hernia. Reviewed, dictated and finalized at location [facility]
--- NOTE | ~2024-02-10 | CT_ITS ---
EXAMINATION: CT pelvis wo con DATE: 02/10/2024 14:57 INDICATION: Low back pain post fall TECHNIQUE: High resolution computed tomography (CT) of the pelvis was performed without intravenous c ontrast. Additional sagittal and coronal reconstructions were performed. Automated exposure control a nd iterative reconstruction technique were employed. The dose-length product was 341.25 mGy-cm. COMPARISON: Radiographs dated 01/01/2010 FINDINGS: Nondisplaced sagittally oriented fractures at the right sacral ala and right pubic body. Additional n ondisplaced fracture with buckling along the anterior cortex of the posterior lateral right inferior pubic ramus. No other acute fractures identified. Mild osteoarthritis at the bilateral hip and sacroi liac joints. Mild leftward tilt of the visualized lower lumbar spine with mild to moderate spondylosi s and moderate to severe bilateral lower lumbar facet osteoarthritis. Visualized portions of bowels i ncluding the appendix are normal. Calcified uterine fibroids. No free fluid in the pelvis. Focal mild fatty atrophy of the right gluteus medius muscle belly and proximal retraction of a portion of the m yotendinous junction consistent with chronic partial tear. No pathologically enlarged pelvic or ingui nal lymphadenopathy. IMPRESSION: 1. Nondisplaced fractures at the right sacral ala, right pubic body and posterior lateral aspect of t he right inferior pubic ramus. Reviewed, dictated and finalized at location B. SORTER IMPRESSION: 1. Nondisplaced fractures at the right sacral ala, right pubic body and posteri or lateral aspect of the right inferior pubic ramus.
--- NOTE | ~2024-02-10 | XR_ITS ---
EXAMINATION: XR hip RT 2V w AP pelvis DATE: 02/11/2024 13:11 INDICATION: Pelvic fractures. TECHNIQUE: An anteroposterior view of the pelvis and 2 views of right hip were obtained. COMPARISON: CT pelvis 02/10/2024 FINDINGS: There is lumbar levoscoliosis and severe spondylosis. There is a nondisplaced fracture of r ight parasymphyseal pubis. There is mild osteoarthritis of the hips. There is a calcified uterine fib roid. IMPRESSION: 1. Nondisplaced fracture of right parasymphyseal pubis. The other fractures seen by CT are not visibl e. 2. Mild osteoarthritis of the hips. Reviewed, dictated and finalized at location A. T RELATION OFFICER IMPRESSION: 1. Nondisplaced fracture of right parasymphyseal pubis. The other fractures see n by CT are not visible. 2. Mild osteoarthritis of the hips.
[2024-02-10 13:41] VITALS: BP 139/76; PULSE 87; RESP 18; TEMP 36.4; O2SAT 99
--- NOTE | 2024-02-10 14:37 | ED.FALL ---
HPI - Fall General Chief Complaint: Fall <Essie Ortiz PA-C - Last Filed: 02/14/24 20:31> Stated Complaint: fall <Essie Bradley BUD Ortiz - Last Filed: 02/14/24 20:31> Time Seen by Provider: 02/10/24 14:37 <Essie Ortiz PA-C - Last Filed: 02/14/24 20:31> Focused HPI: This is a 79 year old female that presents after a fall. Reports falling backwards onto her right buttock. Reports pain down her right leg when she tries to get up. She has not been able to walk without pain. She did not hit her head or lose consciousness. No other injuries or focal areas of pain. GENERAL: Well-appearing, well-nourished, and in no acute distress. HEAD: Normocephalic, atraumatic. CHEST: Clear to auscultation. ?No respiratory distress. HEART: Regular rate and rhythm.? NEURO: ?Alert and oriented x3. Patient screened in triage and initial orders placed.? ?Additional care and disposition to be based upon?diagnostic testing and treatment. <Essie Ortiz PA-C - Last Filed: 02/14/24 20:31> Focused HPI: This is a 79 year old female that presents after a fall. Reports falling backwards onto her right buttock. Reports pain down her right leg when she tries to get up. She has not been able to walk without pain. She did not hit her head or lose consciousness. No other injuries or focal areas of pain. GENERAL: Well-appearing, well-nourished, and in no acute distress. HEAD: Normocephalic, atraumatic. CHEST: Clear to auscultation. ?No respiratory distress. HEART: Regular rate and rhythm.? NEURO: ?Alert and oriented x3. Patient screened in triage and initial orders placed.? ?Additional care and disposition to be based upon?diagnostic testing and treatment. <BUD Child Last Filed: 02/10/24 22:09> Source: patient <BUD Child Last Filed: 02/10/24 22:09> Mode of arrival: ambulatory <Keyona Adorno PA-C - Last Filed: 02/10/24 22:09> Limitations: no limitations <Keyona Adorno PA-C - Last Filed: 02/10/24 22:09> History of Present Illness HPI Narrative: Agree with above HPI. Denies neck or back pain. <Keyona Adorno PA-C - Last Filed: 02/10/24 22:09> Related Data Allergies/Adverse Reactions: Allergies Allergy/AdvReac Type Severity Reaction Status Date / Time No Known Allergies Allergy Verified 02/11/24 00:41 <Essie Ortiz PA-C - Last Filed: 02/14/24 20:31> Review of Systems Review of Systems: All systems reviewed & are unremarkable except as noted in HPI. <Keyona Adorno PA-C - Last Filed: 02/10/24 22:09> All systems reviewed & are unremarkable except as noted in HPI and below <Keyona Adorno PA-C - Last Filed: 02/10/24 22:09> [facility] Past Medical History Medical History: Medical History Prediabetes Acne rosacea Chronic left-sided low back pain without sciatica Closed burst fracture of thoracic vertebra Essential (primary) hypertension FH: brain aneurysm Gastroesophageal reflux disease Mixed hyperlipidemia Postmenopausal osteoporosis Primary hyperparathyroidism Vitamin B12 deficiency Vitamin D deficiency <Essie Ortiz PA-C - Last Filed: 02/14/24 20:31> Family History Family History: Family History Mother Hypertension Father Hypertension Other Family history of cardiovascular disease Family history of chronic obstructive pulmonary disease Family history of thyroid disease <Essie rOtiz PA-C - Last Filed: 02/14/24 20:31> Social History Social History: Social History Smoking status: Never smoker Second hand tobacco smoke exposure: No Alcohol intake: never Substance use: never Substance use type: does not use Do You Feel Safe in your Home?: Yes Lack of Transportation: No Lack of Food: Never True Current Housing: I Have Housing Concerned About Future Housing: No Difficulty Paying Gas/Electric Bills: No Difficulty Paying for Meds: No Currently Unemployed: No Education: Master's Degree or Higher Difficulty w/ Childcare or Family Care: No Living arrangements: with family Occupation/Education: retired Gender identity (if verbalized by the patient): Female Spiritual care concerns: No Agree to blood products: Yes <BUD Burdick Last Filed: 02/14/24 20:31> Exam Narrative: GENERAL: Elderly but well appearing, well-nourished, non-toxic, in no acute distress. HEAD: Normocephalic, atraumatic. RESPIRATORY: Airway patent, respirations nonlabored. Clear to auscultation bilaterally, no rales, rhonchi, wheezing. CARDIOVASCULAR: Regular rate and rhythm without murmurs, rubs, or gallops. Peripheral pulses intact. MUSCULOSKELETAL: No gross deformities. Positive SLR on R. TTP over R anterolateral proximal femur. Sensation intact throughout RLE. No significant tenderness throughout midline thoracic or lumbar spine. No palpable bony deformities or step offs. SKIN: Warm, dry, normal color. NEURO: A&O X3. Speech clear. No ataxic movements. PSYCHIATRIC: Appropriate mood and affect. Normal interaction. <BUD Child Last Filed: 02/10/24 22:09> Course Vital Signs Vital signs: Vital Signs Temperature 97.5 F L 02/10/24 13:41 Pulse Rate 87 02/10/24 13:41 Respiratory Rate 18 02/10/24 13:41 Blood Pressure 139/76 02/10/24 13:41 Pulse Oximetry 99 02/10/24 13:41 Temperature 97.9 F 02/14/24 14:00 Pulse Rate 75 02/14/24 14:00 Respiratory Rate 20 02/14/24 14:00 Blood Pressure 135/90 02/14/24 14:00 Pulse Oximetry 96 02/14/24 14:00 Oxygen Delivery Room Air 02/14/24 08:00 <BUD Burdick Last Filed: 02/14/24 20:31> Vital Signs Temperature 97.5 F L 02/10/24 13:41 Pulse Rate 87 02/10/24 13:41 Respiratory Rate 18 02/10/24 13:41 Blood Pressure 139/76 02/10/24 13:41 Pulse Oximetry 99 02/10/24 13:41 Temperature 97.9 F 02/14/24 14:00 Pulse Rate 75 02/14/24 14:00 Respiratory Rate 20 02/14/24 14:00 Blood Pressure 135/90 02/14/24 14:00 Pulse Oximetry 96 02/14/24 14:00 Oxygen Delivery Room Air 02/14/24 08:00 <BUD Child Last Filed: 02/10/24 22:09> MDM - Fall MDM Narrative Medical decision making narrative: Patient presented to ED status post ground level mechanical fall, pain to right hip/buttock, unable to ambulate. Vital signs stable upon arrival. Patient neurovascularly intact. Denies any other injuries from the fall. Denies head injury or LOC. CT of lumbar spine showing chronic T12 burst fracture without acute fracture. Does show fracture of pelvis. Dedicated CT pelvis was obtained and showing multiple fractures of right-sided pelvis. Consistent with clinical picture and injury. Patient given Tylenol and tramadol in the ED with improvement of pain, however when attempting to ambulate patient, she is unable to bear weight on right leg more than a few steps. Will admit for further evaluation, PT/OT, possible rehab placement. Patient is in agreement with this plan. Discussed case with Dr. Larson, orthopedics, will consult, agrees w/ plan, nonoperative. Discussed case with Dr. Olsen, hospitalist, accepted patient for admission. <Keyona Adorno PA-C - Last Filed: 02/10/24 22:09> Medical Records Attestation: I reviewed the patient's medical records. <BUD Child Last Filed: 02/10/24 22:09> Lab Data Attestation: I reviewed the patient's lab results. <BUD Child Last Filed: 02/10/24 22:09> Result diagrams: 02/14/24 06:09 02/10/24 20:11 <BUD Burdick Last Filed: 12/30/24 20:31> Labs: Lab Results 02/10/24 Range/Units 20:11 WBC 10.2 H (4.5-10.0) K/mm3 RBC 4.47 (4.2-5.4) M/mm3 Hgb 13.9 (12.0-15.0) g/dL Hct 41.5 (37.0-47.0) % MCV 92.8 (80-100) fl MCH 31.1 (26-34) pg MCHC 33.5 (32-36) g/dl RDW 13.8 (11.5-14.5) % Plt Count 273 (150-375) k/mm3 MPV 10.9 H (7.4-10.4) fl Immature Gran % (Auto) 0.3 (0-0.5) % Neut % (Auto) 79.7 H (45.5-73.1) % Lymph % (Auto) 13.1 L (18.3-44.2) % [place] % (Auto) 6.4 (2.6-8.5) % Eos % (Auto) 0.3 (0-4.4) % Baso % (Auto) 0.2 (0.2-1.2) % Lymph # (Auto) 1.34 (0.9-3.2) K/mm3 [place] # (Auto) 0.7 H (0.1-0.6) K/mm3 Eos # (Auto) 0.0 (0-0.3) K/mm3 Baso # (Auto) 0.0 (0.0-0.1) K/mm3 Abs Immat Gran (auto) 0.03 (0.00-0.031) K/mm3 Absolute Neuts (auto) 8.1 H (1.3-6.7) K/mm3 Absolute Nucleated RBC 0.000 (0.0-0.012) K/mm3 Nucleated RBC % 0.0 (0.0-0.2) % PT 14.1 (11.1-14.7) Seconds INR 1.1 APTT 29.6 (22.3-36.8) Seconds Sodium 137 (137-145) mmol/L Potassium 3.6 (3.4-5.0) mmol/L Chloride 108 H (98-107) mmol/L Carbon Dioxide 24 (22-30) mmol/L Anion Gap 5 (4-12) mmol/L BUN 15 (7-17) mg/dL Creatinine 0.60 L (0.7-1.0) mg/dL Estim Creat Clear Calc 57 ml/min Estimated GFR > 60 (59 - ) Glucose 123 H (65-110) mg/dL Calcium 10.2 (8.4-10.2) mg/dL Total Bilirubin 0.6 (0.2-1.3) mg/dL AST 27 (14-36) U/L ALT 19 (6-35) U/L Alkaline Phosphatase 102 (38-126) U/L Total Protein 8.0 (6.3-8.2) g/dL Albumin 4.3 (3.5-5.1) g/dL <Essie Ortiz PA-C - Last Filed: 02/14/24 20:31> Lab Results 02/10/24 Range/Units 20:11 WBC 10.2 H (4.5-10.0) K/mm3 RBC 4.47 (4.2-5.4) M/mm3 Hgb 13.9 (12.0-15.0) g/dL Hct 41.5 (37.0-47.0) % MCV 92.8 (80-100) fl MCH 31.1 (26-34) pg MCHC 33.5 (32-36) g/dl RDW 13.8 (11.5-14.5) % Plt Count 273 (150-375) k/mm3 MPV 10.9 H (7.4-10.4) fl Immature Gran % (Auto) 0.3 (0-0.5) % Neut % (Auto) 79.7 H (45.5-73.1) % Lymph % (Auto) 13.1 L (18.3-44.2) % [place] % (Auto) 6.4 (2.6-8.5) % Eos % (Auto) 0.3 (0-4.4) % Baso % (Auto) 0.2 (0.2-1.2) % Lymph # (Auto) 1.34 (0.9-3.2) K/mm3 [place] # (Auto) 0.7 H (0.1-0.6) K/mm3 Eos # (Auto) 0.0 (0-0.3) K/mm3 Baso # (Auto) 0.0 (0.0-0.1) K/mm3 Abs Immat Gran (auto) 0.03 (0.00-0.031) K/mm3 Absolute Neuts (auto) 8.1 H (1.3-6.7) K/mm3 Absolute Nucleated RBC 0.000 (0.0-0.012) K/mm3 Nucleated RBC % 0.0 (0.0-0.2) % PT 14.1 (11.1-14.7) Seconds INR 1.1 APTT 29.6 (22.3-36.8) Seconds Sodium 137 (137-145) mmol/L Potassium 3.6 (3.4-5.0) mmol/L Chloride 108 H (98-107) mmol/L Carbon Dioxide 24 (22-30) mmol/L Anion Gap 5 (4-12) mmol/L BUN 15 (7-17) mg/dL Creatinine 0.60 L (0.7-1.0) mg/dL Estim Creat Clear Calc 57 ml/min Estimated GFR > 60 (59 - ) Glucose 123 H (65-110) mg/dL Calcium 10.2 (8.4-10.2) mg/dL Total Bilirubin 0.6 (0.2-1.3) mg/dL AST 27 (14-36) U/L ALT 19 (6-35) U/L Alkaline Phosphatase 102 (38-126) U/L Total Protein 8.0 (6.3-8.2) g/dL Albumin 4.3 (3.5-5.1) g/dL <Keyona Adorno PA-C - Last Filed: 02/10/24 22:09> Imaging Data Attestation: I personally reviewed and interpreted this imaging study as follows: <Keyona Adorno PA-C - Last Filed: 02/10/24 22:09> Radiologist's impression: ITS Impressions Pelvis CT 02/10/24 14:59 IMPRESSION: 1. Nondisplaced fractures at the right sacral ala, right pubic body and posterior lateral aspect of the right inferior pubic ramus. Lumbar Spine CT 02/10/24 15:07 IMPRESSION: 1. Chronic T12 burst fracture. 2. Nondisplaced acute fracture of the right sacral ala. 3. 10 degrees thoracolumbar levocurvature with mild spondylosis. 4. Large sliding-type hiatal hernia. <Keyona Adorno PA-C - Last Filed: 02/10/24 22:09> Critical Care Time Critical Care Time Critical Care Time: No <Essie Ortiz PA-C - Last Filed: 02/14/24 20:31> Discharge Plan Discharge Clinical Impression: Fall from ground level, Unable to ambulate Multiple pelvic fractures Qualifiers: Encounter type: initial encounter Fracture type: closed Fracture alignment: without disruption of pelvic ring Qualified Code(s): S32.82XA - Multiple fractures of pelvis without disruption of pelvic ring, initial encounter for closed fracture <Essie Ortiz PA-C - Last Filed: 02/14/24 20:31> Patient Disposition: Still a Patient <Essie Ortiz PA-C - Last Filed: 02/14/24 20:31> Condition: Stable <Essie Ortiz PA-C - Last Filed: 02/14/24 20:31>
[2024-02-10 17:56] VITALS: BP 164/97; PULSE 87; RESP 19; O2SAT 98
[2024-02-10] MEDS: traMADol HCL (*CRX) 50 MG TABLET PO (19:33)
[2024-02-10] MEDS: ACETAMINOPHEN 500 MG TABLET 1000 MG PO (19:34)
[2024-02-10 20:19] LABS: Basophils Percent Auto 0.2 % (0.2-1.2); Eosinophils Percent Auto 0.3 % (0-4.4); Hematocrit 41.5 % (37.0-47.0); Hemoglobin 13.9 g/dL (12.0-15.0); Immature Granulocyte Absolute 0.03 K/mm3 (0.00-0.031); Immature Granulocyte Percent A 0.3 % (0-0.5); Lymphocytes Absolute Auto 1.34 K/mm3 (0.9-3.2); Lymphocytes Percent Auto 13.1 % (18.3-44.2); Mean Corpuscular HGB Conc 33.5 g/dl (32-36); Mean Corpuscular Hemoglobin 31.1 pg (26-34); Mean Corpuscular Volume 92.8 fl (80-100); Mean Platelet Volume 10.9 fl (7.4-10.4); Monocytes Absolute Auto 0.7 K/mm3 (0.1-0.6); Monocytes Percent Auto 6.4 % (2.6-8.5); Neutrophils Absolute Auto 8.1 K/mm3 (1.3-6.7); Neutrophils Percent Auto 79.7 % (45.5-73.1); Platelet Count Result 273 k/mm3 (150-375); Red Blood Count 4.47 M/mm3 (4.2-5.4); Red Cell Distribution Width 13.8 % (11.5-14.5); White Blood Count 10.2 K/mm3 (4.5-10.0)
[2024-02-10 20:31] LABS: INR 1.1; Prothrombin Time 14.1 Seconds (11.1-14.7)
[2024-02-10 20:32] LABS: Partial Thromboplastin Time 29.6 Seconds (22.3-36.8)
[2024-02-10 20:36] LABS: Alanine Aminotransferase 19 U/L (6-35); Albumin Level 4.3 g/dL (3.5-5.1); Alkaline Phosphatase 102 U/L (38-126); Anion Gap 5 mmol/L (4-12); Aspartate Amino Transferase 27 U/L (14-36); Bilirubin,Total 0.6 mg/dL (0.2-1.3); Blood Urea Nitrogen 15 mg/dL (7-17); Calcium 10.2 mg/dL (8.4-10.2); Carbon Dioxide 24 mmol/L (22-30); Chloride 108 mmol/L (98-107); Estimated CRCL calculation 57 ml/min; Estimated Glomerular Filt Rate > 60; Glucose 123 mg/dL (65-110); Potassium 3.6 mmol/L (3.4-5.0); Sodium 137 mmol/L (137-145)
--- NOTE | 2024-02-10 21:50 | PM.IMHP ---
H&P: HPI History of Present Illness Date/Time: 02/10/24 21:50 Chief Complaint: fall Narrative: This is a 79-year-old female with past medical history significant for hypertension, chronic back pain, osteoporosis, patient presents to the emergency room after had a ground level fall landing on her bottom patient had excruciating pain ambulation found to have multiple pelvic fractures. Patient denies any loss of consciousness, patient has been in her usual state of health up until this point. Patient has been admitted for further evaluation management and treatment. EXAMINATION: CT pelvis wo con DATE: 02/10/2024 14:57 INDICATION: Low back pain post fall TECHNIQUE: High resolution computed tomography (CT) of the pelvis was performed without intravenous contrast. Additional sagittal and coronal reconstructions were performed. Automated exposure control and iterative reconstruction technique were employed. The dose-length product was 341.25 mGy-cm. COMPARISON: Radiographs dated 01/01/2010 FINDINGS: Nondisplaced sagittally oriented fractures at the right sacral ala and right pubic body. Additional nondisplaced fracture with buckling along the anterior cortex of the posterior lateral right inferior pubic ramus. No other acute fractures identified. Mild osteoarthritis at the bilateral hip and sacroiliac joints. Mild leftward tilt of the visualized lower lumbar spine with mild to moderate spondylosis and moderate to severe bilateral lower lumbar facet osteoarthritis. Visualized portions of bowels including the appendix are normal. Calcified uterine fibroids. No free fluid in the pelvis. Focal mild fatty atrophy of the right gluteus medius muscle belly and proximal retraction of a portion of the myotendinous junction consistent with chronic partial tear. No pathologically enlarged pelvic or inguinal lymphadenopathy. IMPRESSION: 1. Nondisplaced fractures at the right sacral ala, right pubic body and posterior lateral aspect of the right inferior pubic ramus. EXAMINATION: CT lumbar spine wo con DATE: 02/10/2024 14:57 INDICATION: Low back pain post fall TECHNIQUE: Computed tomography (CT) of the lumbar spine was performed without intravenous contrast. Automated exposure control and iterative reconstruction technique were employed. The dose-length product was 497.30 mGy-cm. COMPARISON: Lumbar spine radiographs dated 12/02/2017 FINDINGS: 10 degrees thoracolumbar levocurvature. Sagittal alignment is normal. Chronic T12 burst fracture with 80% central vertebral body height loss and 5 mm central retropulsion. Mild to moderate left-sided predominant disc height loss at L5-S1. Mild right posterior disc height loss at L2-L3. Large sliding-type hiatal hernia. Splenic calcifications consistent with old granulomatous disease. Nondisplaced sagittally oriented fracture with buckling of the anterior cortex along the right sacral ala. The following disc levels are specifically discussed: T11-T12: Retropulsion of the posterior wall of T12. There is fusion across the bilateral facet joints. There is mild bilateral neural foraminal stenosis. There is mild central canal stenosis. T12-L1: There is minimal retropulsion along the inferior margin of T12. There is mild bilateral facet joint osteoarthritis. There is mild right neural foraminal stenosis. There is mild central canal stenosis. L1-L2: There is mild bilateral facet joint osteoarthritis. There is mild bilateral neural foraminal stenosis. There is no central canal stenosis. L2-L3: There is mild right facet joint osteoarthritis. There is mild right neural foraminal stenosis. There is no central canal stenosis. L3-L4: Disc is bulging. There is moderate right and severe left facet joint osteoarthritis. There is mild left and moderate right neural foraminal stenosis. There is mild to moderate central canal stenosis. L4-L5: Disc is bulging. There is left and severe right facet joint osteoarthritis. There is mild right and mild left neural foraminal stenosis. There is mild to moderate central canal stenosis. L5-S1: Disc is bulging. There is severe left and moderate right facet joint osteoarthritis. There is mild right and moderate left neural foraminal stenosis. There is no central canal stenosis. IMPRESSION: 1. Chronic T12 burst fracture. 2. Nondisplaced acute fracture of the right sacral ala. 3. 10 degrees thoracolumbar levocurvature with mild spondylosis. 4. Large sliding-type hiatal hernia. Review of Systems Review of Systems: fall, pain with ambulation [facility] Past Medical History Medical History Prediabetes Acne rosacea Chronic left-sided low back pain without sciatica Closed burst fracture of thoracic vertebra Essential (primary) hypertension FH: brain aneurysm Gastroesophageal reflux disease Mixed hyperlipidemia Postmenopausal osteoporosis Primary hyperparathyroidism Vitamin B12 deficiency Vitamin D deficiency Family History Family History Mother Hypertension Father Hypertension Other Family history of cardiovascular disease Family history of chronic obstructive pulmonary disease Family history of thyroid disease Social History Social History Smoking status: Never smoker Second hand tobacco smoke exposure: No Alcohol intake: never Substance use: never Substance use type: does not use Do You Feel Safe in your Home?: Yes Lack of Transportation: No Lack of Food: Never True Current Housing: I Have Housing Concerned About Future Housing: No Difficulty Paying Gas/Electric Bills: No Difficulty Paying for Meds: No Currently Unemployed: No Education: Master's Degree or Higher Difficulty w/ Childcare or Family Care: No Living arrangements: with family Occupation/Education: retired Gender identity (if verbalized by the patient): Female Spiritual care concerns: No Agree to blood products: Yes Meds Home Medications and Allergies Home Medications ?Medication ?Instructions ?Recorded ?Confirmed ?Type amlodipine 5 mg tablet See Rx Instructions .Route 06/17/23 02/10/24 Rx .COMPLEX #90 tabs losartan 50 mg tablet 50 mg PO DAILY #90 tabs 09/17/23 02/10/24 Rx oxybutynin chloride 5 mg tablet 5 mg PO DAILY #30 tabs 11/29/23 02/10/24 Rx pantoprazole 40 mg tablet,delayed 40 mg PO QHS #90 tabs 01/10/24 02/10/24 Rx release (Protonix) Allergies Allergy/AdvReac Type Severity Reaction Status Date / Time No Known Allergies Allergy Verified 02/11/24 00:41 Vital Signs Vital Signs - 24 hr 02/10/24 13:41 02/10/24 17:56 Temperature 97.5 F L Pulse Rate 87 87 Respiratory Rate 18 19 Blood Pressure 139/76 164/97 H Pulse Oximetry 99 98 Exam Narrative: Laying in bed Const: General: comfortable, no acute distress, well developed, alert, awake and average body habitus Nutritional Appearance: average body habitus Orientation/consciousness: patient oriented x3 HENMT: Head: normal to inspection, normocephalic and atraumatic Ears: hearing grossly normal bilaterally Face/Nose/Sinus: normal facial exam Face and sinus: normal facial exam Eyes: General: appearance normal, both eyes and all related structures Pupils: Equal, round and reactive pupils present EOM: EOMs intact bilaterally Neck: Neck: full ROM, no lymphadenopathy and no JVD Thyroid: thyroid normal Lymphatic: no lymphadenopathy noted Resp: Effort & Inspection: normal respiratory effort and able to speak in complete sentences Auscultation: clear to auscultation bilaterally Cardio: Jugular venous distension: no JVD Rate: regular rate Rhythm: regular rhythm Heart sounds: S1 normal heart sound present and S2 normal heart sound present GI: GI Palp: Yes Soft to palpation and Yes No hepatosplenomegaly present : General: Yes deferred Skin: Rashes: no rashes Wounds: no wounds Neuro: General: patient oriented x3 and CN's II-XI intact bilaterally Cranial nerves: Yes CN's II-XII intact bilaterally and Yes Equal, round and reactive pupils present Cognition (Neuro): normal cognition Speech: normal speech Gait exam (Neuro): Unable to assess gait Motor exam (neuro): 5/5 motor strength present throughout Extrem: General: normal to inspection, full ROM, no joint enlargement and no pedal edema H&P: Results Labs Labs: Short CBC 02/10/24 Range/Units 20:11 WBC 10.2 H (4.5-10.0) K/mm3 Hgb 13.9 (12.0-15.0) g/dL Hct 41.5 (37.0-47.0) % Plt Count 273 (150-375) k/mm3 BMP 02/10/24 20:11 Sodium 137 Potassium 3.6 Chloride 108 H Carbon Dioxide 24 BUN 15 Creatinine 0.60 L Glucose 123 H Calcium 10.2 Liver Function 02/10/24 Range/Units 20:11 Total Bilirubin 0.6 (0.2-1.3) mg/dL AST 27 (14-36) U/L ALT 19 (6-35) U/L Alkaline Phosphatase 102 (38-126) U/L Albumin 4.3 (3.5-5.1) g/dL Assessment and Plan Assessment and plan (1) Unable to ambulate: Code(s): R26.2 - Difficulty in walking, not elsewhere classified Status: Acute Assessment and Plan: Admit to regular medical floor Bed rest (2) Fall from ground level: Code(s): W18.30XA - Fall on same level, unspecified, initial encounter Status: Acute Assessment and Plan: Mechanical fall (3) Multiple pelvic fractures: Qualifiers: Encounter type: initial encounter Fracture alignment: without disruption of pelvic ring Fracture type: closed Qualified Code(s): S32.82XA - Multiple fractures of pelvis without disruption of pelvic ring, initial encounter for closed fracture Code(s): S32.82XA - Multiple fractures of pelvis without disruption of pelvic ring, initial encounter for closed fracture Status: Acute Assessment and Plan: Supportive care Orthopedic surgical (4) Osteoporosis: Code(s): M81.0 - Age-related osteoporosis without current pathological fracture Status: Acute Assessment and Plan: Follow-up in outpatient setting (5) Gastroesophageal reflux disease: Code(s): K21.9 - Gastro-esophageal reflux disease without esophagitis Status: Acute Assessment and Plan: PPI (6) Essential (primary) hypertension: Code(s): I10 - Essential (primary) hypertension Status: Acute Assessment and Plan: Continue losartan and amlodipine Hospitalist [facility] Advance Care Plan I have confirmed that the patient's Advanced Care Plan is present, code status is documented, or surrogate decision maker is listed in patient medical record.: Yes Medication Reconciliation I have utilized all available resources to obtain, update and review the patients current medications (includes all prescriptions, OTC, herbals, cannabis, and nutritional supplements).: Yes
[2024-02-10 23:30] VITALS: BMI 28.8
[2024-02-11 00:14] VITALS: BP 145/72; PULSE 58; RESP 20; TEMP 36.7; O2SAT 96
[2024-02-11] MEDS: traZODone HCL 50 MG TABLET PO (03:08)
[2024-02-11] MEDS: traMADol HCL (*CRX) 50 MG TABLET PO ×3 (03:08→20:00)
[2024-02-11 05:40] VITALS: BP 121/59; PULSE 64; RESP 18; TEMP 36.9; O2SAT 93
[2024-02-11] MEDS: LOSARTAN POTASSIUM 50 MG TABLET PO (08:10)
[2024-02-11] MEDS: oxyBUTYnin CHLORIDE 5 MG TABLET PO (08:11)
[2024-02-11] MEDS: amLODIPine BESYLATE 5 MG TABLET BY MOUTH (08:11)
[2024-02-11] MEDS: ACETAMINOPHEN 500 MG TABLET 1000 MG PO (11:52)
--- NOTE | 2024-02-11 12:49 | PM.CNOR ---
Assessment and Plan Assessment and plan (1) Multiple pelvic fractures: Qualifiers: Encounter type: initial encounter Fracture alignment: without disruption of pelvic ring Fracture type: closed Qualified Code(s): S32.82XA - Multiple fractures of pelvis without disruption of pelvic ring, initial encounter for closed fracture Code(s): S32.82XA - Multiple fractures of pelvis without disruption of pelvic ring, initial encounter for closed fracture Status: Acute Assessment and Plan: Patient is a 79-year-old female was admitted through the emergency room if after a ground level fall onto concrete onto her right hip. She had a CT scan of the pelvis which demonstrated fractures of the junction of superior pubic ramus and pubis, mid posterior inferior pubic ramus, and buckle fracture of the anterior sacral ala. she was unable to put any weight on the right leg emergency room so she further evaluation. Patient denied any prior problems of pain in the right hip. Patient has no history of deep Patient does have long history of osteoporosis and she was treated with Fosamax for about 10 years and recently came off. I will check a 25 hydroxy vitamin-D level and supplement if it is low. Her last bone density test appears to have been October of 2019 which showed T-score of-2.9 in the lumbar spine and T-scores of-1.9 and 2.0 in the hips at that time. Lumbar spine CT was also performed and demonstrated chronic 80% compression deformity with pursed at T12 with mild central canal stenosis at that level and severe degenerative disc disease S1. Patient lives in her home with her sister who she assists. On examination today she is cup as long as she is not moving. Such as rolling to the side a little bit she complains of pain around the right eligio pelvis Assessment and plan Patient has displaced buckle fractures right inferior and superior pubic rami and right sacral ala. we will ask physical therapy to mobilize her. We will be weight initially. Explained to her that she is at risk for blood clot problems because of her decreased activity. We will utilize SCDs while she is here and start Lovenox 40 mg daily plan to use this for approximately 4 weeks. Exam. The lower dose Lovenox should be the coagulation option. Will check a 25 hydroxy vitamin-D level. Will calcium supplement to her diet. Patient would like to be transferred to the acute rehabilitation if she qualifies History of Present Illness HPI Consult date: 02/11/24 Chief complaint: Multiple pelvic fractions, unable to ambulate [facility] Past Medical History Medical History Prediabetes Acne rosacea Chronic left-sided low back pain without sciatica Closed burst fracture of thoracic vertebra Essential (primary) hypertension FH: brain aneurysm Gastroesophageal reflux disease Mixed hyperlipidemia Postmenopausal osteoporosis Primary hyperparathyroidism Vitamin B12 deficiency Vitamin D deficiency Family History Family History Mother Hypertension Father Hypertension Other Family history of cardiovascular disease Family history of chronic obstructive pulmonary disease Family history of thyroid disease Social History Social History Smoking status: Never smoker Second hand tobacco smoke exposure: No Alcohol intake: never Substance use: never Substance use type: does not use Do You Feel Safe in your Home?: Yes Lack of Transportation: No Lack of Food: Never True Current Housing: I Have Housing Concerned About Future Housing: No Difficulty Paying Gas/Electric Bills: No Difficulty Paying for Meds: No Currently Unemployed: No Education: Master's Degree or Higher Difficulty w/ Childcare or Family Care: No Living arrangements: with family Occupation/Education: retired Gender identity (if verbalized by the patient): Female Spiritual care concerns: No Agree to blood products: Yes Meds Home Medications and Allergies Home Medications ?Medication ?Instructions ?Recorded ?Confirmed ?Type amlodipine 5 mg tablet See Rx Instructions .Route 06/17/23 02/10/24 Rx .COMPLEX #90 tabs losartan 50 mg tablet 50 mg PO DAILY #90 tabs 09/17/23 02/10/24 Rx oxybutynin chloride 5 mg tablet 5 mg PO DAILY #30 tabs 11/29/23 02/10/24 Rx pantoprazole 40 mg tablet,delayed 40 mg PO QHS #90 tabs 01/10/24 02/10/24 Rx release (Protonix) Allergies Allergy/AdvReac Type Severity Reaction Status Date / Time No Known Allergies Allergy Verified 02/11/24 00:41 Vital Signs Vital Signs - 24 hr 02/10/24 13:41 02/10/24 17:56 02/11/24 00:14 Temperature 36.4 C L 36.7 C Pulse Rate 87 87 58 L Respiratory Rate 18 19 20 Blood Pressure 139/76 164/97 H 145/72 H Pulse Oximetry 99 98 96 Oxygen Delivery 02/11/24 00:36 02/11/24 05:40 Temperature 36.9 C Pulse Rate 64 Respiratory Rate 18 Blood Pressure 121/59 L Pulse Oximetry 93 Oxygen Delivery Room Air Results Labs 02/10/24 20:11 02/10/24 20:11 Labs: Abnormal lab results 02/10/24 Range/Units 20:11 WBC 10.2 H (4.5-10.0) K/mm3 MPV 10.9 H (7.4-10.4) fl Neut % (Auto) 79.7 H (45.5-73.1) % Lymph % (Auto) 13.1 L (18.3-44.2) % [place] # (Auto) 0.7 H (0.1-0.6) K/mm3 Absolute Neuts (auto) 8.1 H (1.3-6.7) K/mm3 Chloride 108 H (98-107) mmol/L Creatinine 0.60 L (0.7-1.0) mg/dL Glucose 123 H (65-110) mg/dL H & H 02/10/24 Range/Units 20:11 Hgb 13.9 (12.0-15.0) g/dL Hct 41.5 (37.0-47.0) % Coagulation 02/10/24 Range/Units 20:11 INR 1.1 All other labs normal.
--- NOTE | 2024-02-11 13:08 | PM.IMPN ---
Progress Note: A&P Assessment and Plan (1) Unable to ambulate: Code(s): R26.2 - Difficulty in walking, not elsewhere classified Status: Acute Assessment and Plan: Admit to regular medical floor Bed rest (2) Fall from ground level: Code(s): W18.30XA - Fall on same level, unspecified, initial encounter Status: Acute Assessment and Plan: Mechanical fall (3) Multiple pelvic fractures: Qualifiers: Encounter type: initial encounter Fracture alignment: without disruption of pelvic ring Fracture type: closed Qualified Code(s): S32.82XA - Multiple fractures of pelvis without disruption of pelvic ring, initial encounter for closed fracture Code(s): S32.82XA - Multiple fractures of pelvis without disruption of pelvic ring, initial encounter for closed fracture Status: Acute Assessment and Plan: Supportive care Orthopedic surgical PRN pain control while awaiting PT/OT (4) Osteoporosis: Code(s): M81.0 - Age-related osteoporosis without current pathological fracture Status: Acute Assessment and Plan: Follow-up in outpatient setting (5) Gastroesophageal reflux disease: Code(s): K21.9 - Gastro-esophageal reflux disease without esophagitis Status: Acute Assessment and Plan: PPI (6) Essential (primary) hypertension: Code(s): I10 - Essential (primary) hypertension Status: Acute Assessment and Plan: Continue losartan and amlodipine Plan DVT prophylaxis on Sq Lovenox Subjective Date/time seen: 02/11/24 13:08 Interval history: Comfortable at bedside and awaiting Ortho eval Review of Systems Review of Systems: fall, pain with ambulation Exam Narrative: Laying in bed Const: General: comfortable, no acute distress, well developed, alert, awake and average body habitus Nutritional Appearance: average body habitus Orientation/consciousness: patient oriented x3 HENMT: Head: normal to inspection, normocephalic and atraumatic Ears: hearing grossly normal bilaterally Face/Nose/Sinus: normal facial exam Face and sinus: normal facial exam Eyes: General: appearance normal, both eyes and all related structures Pupils: Equal, round and reactive pupils present EOM: EOMs intact bilaterally Neck: Neck: full ROM, no lymphadenopathy and no JVD Thyroid: thyroid normal Lymphatic: no lymphadenopathy noted Resp: Effort & Inspection: normal respiratory effort and able to speak in complete sentences Auscultation: clear to auscultation bilaterally Cardio: Jugular venous distension: no JVD Rate: regular rate Rhythm: regular rhythm Heart sounds: S1 normal heart sound present and S2 normal heart sound present : General: Yes deferred Skin: Rashes: no rashes Wounds: no wounds Neuro: General: patient oriented x3, CN's II-XI intact bilaterally and Unable to assess gait Cranial nerves: Yes CN's II-XII intact bilaterally and Yes Equal, round and reactive pupils present Cognition (Neuro): normal cognition Speech: normal speech Gait exam (Neuro): Unable to assess gait Motor exam (neuro): 5/5 motor strength present throughout Extrem: General: normal to inspection, full ROM, no joint enlargement and no pedal edema Objective Data Vital Signs Vital Signs: Vital Signs - 24 hr 02/10/24 13:41 02/10/24 17:56 02/11/24 00:14 Temperature 97.5 F L 98.1 F Pulse Rate 87 87 58 L Respiratory Rate 18 19 20 Blood Pressure 139/76 164/97 H 145/72 H Pulse Oximetry 99 98 96 Oxygen Delivery 02/11/24 00:36 02/11/24 05:40 Temperature 98.4 F Pulse Rate 64 Respiratory Rate 18 Blood Pressure 121/59 L Pulse Oximetry 93 Oxygen Delivery Room Air Intake/Output Intake/Output: Intake & Output 02/08/24 02/09/24 02/10/24 02/11/24 23:59 23:59 23:59 23:59 Intake Total 934 Balance 934 Meds/Results Medications: Active Medications Generic Name Dose Route Start Last Admin Trade Name Freq PRN Reason Stop Dose Admin Acetaminophen 650 mg 02/11/24 18:00 Acetaminophen 325 Mg Tablet PO Q6H CHEYANNE Al Hydrox/Mg Hydrox/Simethicone 30 ml 02/11/24 02:39 Mag Hydrox/Al Hydrox/Simeth 30 Ml Udc PO Q6H PRN Indigestion Amlodipine Besylate 5 mg 02/11/24 09:00 02/11/24 08:11 Amlodipine Besylate 5 Mg Tablet BY MOUTH 5 mg DAILY CHEYANNE Administration Enoxaparin Sodium 40 mg 02/11/24 12:55 Enoxaparin 40 Mg/0.4 Ml Syringe SUB-Q DAILY [facility] Losartan Potassium 50 mg 02/11/24 09:00 02/11/24 08:10 Losartan Potassium 50 Mg Tablet PO 50 mg DAILY CHEYANNE Administration Oxybutynin Chloride 5 mg 02/11/24 09:00 02/11/24 08:11 Oxybutynin Chloride 5 Mg Tablet PO 5 mg DAILY CHEYANNE Administration Polyethylene Glycol 17 gm 02/11/24 02:39 Polyethylene Glycol 3350 17 Gm Powd.Pack PO QAM PRN Constipation Tramadol HCl 50 mg 02/10/24 22:07 02/11/24 03:08 Tramadol Hcl (*Crx) 50 Mg Tablet PO 50 mg Q4H PRN Administration Pain Rated 4-6 Radiology Results: ITS Impressions Pelvis CT 02/10/24 14:59 IMPRESSION: 1. Nondisplaced fractures at the right sacral ala, right pubic body and posterior lateral aspect of the right inferior pubic ramus. Lumbar Spine CT 02/10/24 15:07 IMPRESSION: 1. Chronic T12 burst fracture. 2. Nondisplaced acute fracture of the right sacral ala. 3. 10 degrees thoracolumbar levocurvature with mild spondylosis. 4. Large sliding-type hiatal hernia. Labs Labs: Laboratory Results - last 24 hr 02/10/24 20:11 WBC 10.2 H RBC 4.47 Hgb 13.9 Hct 41.5 MCV 92.8 MCH 31.1 MCHC 33.5 RDW 13.8 Plt Count 273 MPV 10.9 H Immature Gran % (Auto) 0.3 Neut % (Auto) 79.7 H Lymph % (Auto) 13.1 L [place] % (Auto) 6.4 Eos % (Auto) 0.3 Baso % (Auto) 0.2 Lymph # (Auto) 1.34 [place] # (Auto) 0.7 H Eos # (Auto) 0.0 Baso # (Auto) 0.0 Abs Immat Gran (auto) 0.03 Absolute Neuts (auto) 8.1 H Absolute Nucleated RBC 0.000 Nucleated RBC % 0.0 PT 14.1 INR 1.1 APTT 29.6 Sodium 137 Potassium 3.6 Chloride 108 H Carbon Dioxide 24 Anion Gap 5 BUN 15 Creatinine 0.60 L Estim Creat Clear Calc 57 Estimated GFR > 60 Glucose 123 H Calcium 10.2 Total Bilirubin 0.6 AST 27 ALT 19 Alkaline Phosphatase 102 Total Protein 8.0 Albumin 4.3
[2024-02-11 13:48] VITALS: BP 112/63; PULSE 55; RESP 16; TEMP 36.8; O2SAT 93
[2024-02-11] MEDS: ENOXAPARIN 40 MG/0.4 ML SYRINGE SUB-Q (14:06)
[2024-02-11] MEDS: ACETAMINOPHEN 325 MG TABLET 650 MG PO (17:00)
[2024-02-11 21:49] VITALS: BP 124/76; PULSE 66; RESP 20; TEMP 37.1; O2SAT 94
[2024-02-12] MEDS: ACETAMINOPHEN 325 MG TABLET 650 MG PO ×4 (00:28→17:21)
[2024-02-12 05:49] VITALS: BP 122/75; PULSE 70; RESP 16; TEMP 37.4; O2SAT 93
[2024-02-12 07:27] LABS: Vitamin D 25 Hydroxy 14.2 ng/mL
[2024-02-12] MEDS: LOSARTAN POTASSIUM 50 MG TABLET PO (08:33)
[2024-02-12] MEDS: amLODIPine BESYLATE 5 MG TABLET BY MOUTH (08:33)
[2024-02-12] MEDS: ENOXAPARIN 40 MG/0.4 ML SYRINGE SUB-Q (08:33)
[2024-02-12] MEDS: oxyBUTYnin CHLORIDE 5 MG TABLET PO (08:33)
[2024-02-12] MEDS: CHOLECALCIFEROL 5,000 UNITS TABLET 5000 UNITS PO (11:06)
--- NOTE | 2024-02-12 13:48 | PM.PNORT ---
Progress Note: A&P Assessment and Plan (1) Multiple pelvic fractures: Qualifiers: Encounter type: initial encounter Fracture alignment: without disruption of pelvic ring Fracture type: closed Qualified Code(s): S32.82XA - Multiple fractures of pelvis without disruption of pelvic ring, initial encounter for closed fracture Code(s): S32.82XA - Multiple fractures of pelvis without disruption of pelvic ring, initial encounter for closed fracture Status: Acute Assessment and Plan: Patient was able heard she is sitting in the chair currently fairly comfortably but she finds it very difficult to put weight on the right leg and very difficult to support her weight on her hands so that is hard for her to move the left foot during transfers. She was up the chair yesterday afternoon. Her CBC looks normal. She is on Lovenox for DVT prophylaxis 40 minutes Her 25 hydroxy vitamin-D level was very low at 14 this with 6 weekly 50,000 ergo calciferol doses and I am going to start Citracal plus D tablet b.i.d.. She will rehab placement and this is being currently. Subjective Subjective Date/Time Seen: 02/12/24 13:48 Objective Data Vital Signs Vital Signs: Vital Signs - 24 hr 02/11/24 14:14 02/11/24 20:00 02/11/24 21:49 Temperature 37.1 C Pulse Rate 66 Respiratory Rate 20 Blood Pressure 124/76 Pulse Oximetry 94 Oxygen Delivery Room Air Room Air 02/12/24 05:49 Temperature 37.4 C Pulse Rate 70 Respiratory Rate 16 Blood Pressure 122/75 Pulse Oximetry 93 Oxygen Delivery Intake/Output Intake/Output: Intake & Output 02/09/24 02/10/24 02/11/24 02/12/24 23:59 23:59 23:59 23:59 Intake Total 1174 248 Balance 1174 248 Meds/Results Medications: Active Medications Generic Name Dose Route Start Last Admin Trade Name Freq PRN Reason Stop Dose Admin Acetaminophen 650 mg 02/11/24 18:00 02/12/24 11:06 Acetaminophen 325 Mg Tablet PO 650 mg Q6H CHEYANNE Administration Al Hydrox/Mg Hydrox/Simethicone 30 ml 02/11/24 02:39 Mag Hydrox/Al Hydrox/Simeth 30 Ml Udc PO Q6H PRN Indigestion Amlodipine Besylate 5 mg 02/11/24 09:00 02/12/24 08:33 Amlodipine Besylate 5 Mg Tablet BY MOUTH 5 mg DAILY [facility] Administration Calcium Citrate 1 tablet 02/12/24 17:00 Calcium Citrate 315 Mg/Vitamin D 6.25 Mcg (250 Units) Tab PO BID [facility] Enoxaparin Sodium 40 mg 02/11/24 12:55 02/12/24 08:33 Enoxaparin 40 Mg/0.4 Ml Syringe SUB-Q 40 mg DAILY CHEYANNE Administration Ergocalciferol 50,000 units 02/12/24 13:50 Ergocalciferol 50,000 Units Capsule PO 03/18/24 09:01 WEEKLY [facility] Losartan Potassium 50 mg 02/11/24 09:00 02/12/24 08:33 Losartan Potassium 50 Mg Tablet PO 50 mg DAILY CHEYANNE Administration Oxybutynin Chloride 5 mg 02/11/24 09:00 02/12/24 08:33 Oxybutynin Chloride 5 Mg Tablet PO 5 mg DAILY CHEYANNE Administration Polyethylene Glycol 17 gm 02/11/24 02:39 Polyethylene Glycol 3350 17 Gm Powd.Pack PO QAM PRN Constipation Tramadol HCl 50 mg 02/10/24 22:07 02/11/24 20:00 Tramadol Hcl (*Crx) 50 Mg Tablet PO 50 mg Q4H PRN Administration Pain Rated 4-6 Vitamin D 5,000 units 02/12/24 11:15 02/12/24 11:06 Cholecalciferol 5,000 Units Tablet PO 5,000 units DAILY CHEYANNE Administration Radiology Results: ITS Impressions Pelvis CT 02/10/24 14:59 IMPRESSION: 1. Nondisplaced fractures at the right sacral ala, right pubic body and posterior lateral aspect of the right inferior pubic ramus. Lumbar Spine CT 02/10/24 15:07 IMPRESSION: 1. Chronic T12 burst fracture. 2. Nondisplaced acute fracture of the right sacral ala. 3. 10 degrees thoracolumbar levocurvature with mild spondylosis. 4. Large sliding-type hiatal hernia. Hip/Pelvis X-Ray 02/11/24 13:14 IMPRESSION: 1. Nondisplaced fracture of right parasymphyseal pubis. The other fractures seen by CT are not visible. 2. Mild osteoarthritis of the hips. Labs Labs: Laboratory Results - last 24 hr 02/12/24 06:02 Vitamin D 25-Hydroxy 14.2
[2024-02-12 14:00] VITALS: BP 120/70; PULSE 74; RESP 18; TEMP 37.3; O2SAT 95
--- NOTE | 2024-02-12 16:39 | PM.IMPN ---
Progress Note: A&P Assessment and Plan (1) Unable to ambulate: Code(s): R26.2 - Difficulty in walking, not elsewhere classified Status: Acute Assessment and Plan: PT/OT monitor (2) Fall from ground level: Code(s): W18.30XA - Fall on same level, unspecified, initial encounter Status: Acute Assessment and Plan: Mechanical fall (3) Multiple pelvic fractures: Qualifiers: Encounter type: initial encounter Fracture alignment: without disruption of pelvic ring Fracture type: closed Qualified Code(s): S32.82XA - Multiple fractures of pelvis without disruption of pelvic ring, initial encounter for closed fracture Code(s): S32.82XA - Multiple fractures of pelvis without disruption of pelvic ring, initial encounter for closed fracture Status: Acute Assessment and Plan: Conservative management PRN pain control awating PT/OT Ortho following (4) Osteoporosis: Code(s): M81.0 - Age-related osteoporosis without current pathological fracture Status: Acute Assessment and Plan: Follow-up in outpatient setting (5) Gastroesophageal reflux disease: Code(s): K21.9 - Gastro-esophageal reflux disease without esophagitis Status: Acute Assessment and Plan: PPI (6) Essential (primary) hypertension: Code(s): I10 - Essential (primary) hypertension Status: Acute Assessment and Plan: Continue losartan and amlodipine Plan DVT prophylaxis on Sq Lovenox Subjective Date/time seen: 02/12/24 16:39 Interval history: Comfortable at bedside Garner recommends conservative management Awaiting placement Review of Systems Review of Systems: fall, pain with ambulation Exam Narrative: Laying in bed Const: General: comfortable, no acute distress, well developed, alert, awake and average body habitus Nutritional Appearance: average body habitus Orientation/consciousness: patient oriented x3 HENMT: Head: normal to inspection, normocephalic and atraumatic Ears: hearing grossly normal bilaterally Face/Nose/Sinus: normal facial exam Face and sinus: normal facial exam Eyes: General: appearance normal, both eyes and all related structures Pupils: Equal, round and reactive pupils present EOM: EOMs intact bilaterally Neck: Neck: full ROM, no lymphadenopathy and no JVD Thyroid: thyroid normal Lymphatic: no lymphadenopathy noted Resp: Effort & Inspection: normal respiratory effort and able to speak in complete sentences Auscultation: clear to auscultation bilaterally Cardio: Jugular venous distension: no JVD Rate: regular rate Rhythm: regular rhythm Heart sounds: S1 normal heart sound present and S2 normal heart sound present : General: Yes deferred Skin: Rashes: no rashes Wounds: no wounds Neuro: General: patient oriented x3, CN's II-XI intact bilaterally and Unable to assess gait Cranial nerves: Yes CN's II-XII intact bilaterally and Yes Equal, round and reactive pupils present Cognition (Neuro): normal cognition Speech: normal speech Gait exam (Neuro): Unable to assess gait Motor exam (neuro): 5/5 motor strength present throughout Extrem: General: normal to inspection, full ROM, no joint enlargement and no pedal edema Objective Data Vital Signs Vital Signs: Vital Signs - 24 hr 02/11/24 20:00 02/11/24 21:49 02/12/24 05:49 Temperature 98.8 F 99.4 F Pulse Rate 66 70 Respiratory Rate 20 16 Blood Pressure 124/76 122/75 Pulse Oximetry 94 93 Oxygen Delivery Room Air Intake/Output Intake/Output: Intake & Output 02/09/24 02/10/24 02/11/24 02/12/24 23:59 23:59 23:59 23:59 Intake Total 1174 248 Balance 1174 248 Meds/Results Medications: Active Medications Generic Name Dose Route Start Last Admin Trade Name Freq PRN Reason Stop Dose Admin Acetaminophen 650 mg 02/11/24 18:00 02/12/24 11:06 Acetaminophen 325 Mg Tablet PO 650 mg Q6H CHEYANNE Administration Al Hydrox/Mg Hydrox/Simethicone 30 ml 02/11/24 02:39 Mag Hydrox/Al Hydrox/Simeth 30 Ml Udc PO Q6H PRN Indigestion Amlodipine Besylate 5 mg 02/11/24 09:00 02/12/24 08:33 Amlodipine Besylate 5 Mg Tablet BY MOUTH 5 mg DAILY CHEYANNE Administration Calcium Carbonate 500 mg 02/12/24 17:00 Calcium Carbonate (Oscal) 500 Mg Tablet PO BIDWM [facility] Enoxaparin Sodium 40 mg 02/11/24 12:55 02/12/24 08:33 Enoxaparin 40 Mg/0.4 Ml Syringe SUB-Q 40 mg DAILY CHEYANNE Administration Losartan Potassium 50 mg 02/11/24 09:00 02/12/24 08:33 Losartan Potassium 50 Mg Tablet PO 50 mg DAILY CHEYANNE Administration Oxybutynin Chloride 5 mg 02/11/24 09:00 02/12/24 08:33 Oxybutynin Chloride 5 Mg Tablet PO 5 mg DAILY CHEYANNE Administration Polyethylene Glycol 17 gm 02/11/24 02:39 Polyethylene Glycol 3350 17 Gm Powd.Pack PO QAM PRN Constipation Polyethylene Glycol 17 gm 02/13/24 09:00 Polyethylene Glycol 3350 17 Gm Powd.Pack PO QAM CHEYANNE Senna/Docusate Sodium 2 tab 02/12/24 17:00 Senna/Docusate Sodium Tablet PO BID CHEYANNE Tramadol HCl 50 mg 02/10/24 22:07 02/11/24 20:00 Tramadol Hcl (*Crx) 50 Mg Tablet PO 50 mg Q4H PRN Administration Pain Rated 4-6 Vitamin D 5,000 units 02/12/24 11:15 02/12/24 11:06 Cholecalciferol 5,000 Units Tablet PO 5,000 units DAILY CHEYANNE Administration Radiology Results: ITS Impressions Pelvis CT 02/10/24 14:59 IMPRESSION: 1. Nondisplaced fractures at the right sacral ala, right pubic body and posterior lateral aspect of the right inferior pubic ramus. Lumbar Spine CT 02/10/24 15:07 IMPRESSION: 1. Chronic T12 burst fracture. 2. Nondisplaced acute fracture of the right sacral ala. 3. 10 degrees thoracolumbar levocurvature with mild spondylosis. 4. Large sliding-type hiatal hernia. Hip/Pelvis X-Ray 02/11/24 13:14 IMPRESSION: 1. Nondisplaced fracture of right parasymphyseal pubis. The other fractures seen by CT are not visible. 2. Mild osteoarthritis of the hips. Labs Labs: Laboratory Results - last 24 hr 02/12/24 06:02 Vitamin D 25-Hydroxy 14.2
[2024-02-12] MEDS: SENNA/DOCUSATE SODIUM TABLET 2 TAB PO (17:22)
[2024-02-12] MEDS: CALCIUM CARBONATE (OSCAL) 500 MG TABLET PO (17:22)
[2024-02-12 22:00] VITALS: BP 134/83; PULSE 85; RESP 18; TEMP 36.6; O2SAT 93
[2024-02-13] MEDS: ACETAMINOPHEN 325 MG TABLET 650 MG PO ×5 (00:17→23:38)
[2024-02-13 05:53] VITALS: BP 139/79; PULSE 77; RESP 16; TEMP 37.1; O2SAT 91
[2024-02-13 08:00] VITALS: PULSE 77; RESP 16; O2SAT 91
[2024-02-13] MEDS: SENNA/DOCUSATE SODIUM TABLET 2 TAB PO ×2 (09:21→18:29)
[2024-02-13] MEDS: oxyBUTYnin CHLORIDE 5 MG TABLET PO (09:21)
[2024-02-13] MEDS: LOSARTAN POTASSIUM 50 MG TABLET PO (09:21)
[2024-02-13] MEDS: amLODIPine BESYLATE 5 MG TABLET BY MOUTH (09:21)
[2024-02-13] MEDS: CALCIUM CARBONATE (OSCAL) 500 MG TABLET PO ×2 (09:21→18:29)
[2024-02-13] MEDS: CHOLECALCIFEROL 5,000 UNITS TABLET 5000 UNITS PO (09:21)
[2024-02-13] MEDS: polyethylene glycoL 3350 17 GM POWD.PACK PO (09:21)
[2024-02-13] MEDS: traMADol HCL (*CRX) 50 MG TABLET PO ×2 (09:22→13:01)
[2024-02-13] MEDS: ENOXAPARIN 40 MG/0.4 ML SYRINGE SUB-Q (09:23)
--- NOTE | 2024-02-13 09:34 | PM.PNORT ---
Progress Note: A&P Assessment and Plan (1) Multiple pelvic fractures: Qualifiers: Encounter type: initial encounter Fracture alignment: without disruption of pelvic ring Fracture type: closed Qualified Code(s): S32.82XA - Multiple fractures of pelvis without disruption of pelvic ring, initial encounter for closed fracture Code(s): S32.82XA - Multiple fractures of pelvis without disruption of pelvic ring, initial encounter for closed fracture Status: Acute Assessment and Plan: Patient reports that she did a little bit better today. She is up in the chair she tolerated the transfer well. We will check a CBC in the morning. Transfer to rehabilitation facility is pending. Subjective Subjective Date/Time Seen: 02/13/24 09:34 Objective Data Vital Signs Vital Signs: Vital Signs - 24 hr 02/12/24 14:00 02/12/24 22:00 02/13/24 05:53 Temperature 37.3 C 36.6 C 37.1 C Pulse Rate 74 85 77 Respiratory Rate 18 18 16 Blood Pressure 120/70 134/83 139/79 Pulse Oximetry 95 93 91 Intake/Output Intake/Output: Intake & Output 02/10/24 02/11/24 02/12/24 02/13/24 23:59 23:59 23:59 23:59 Intake Total 1174 858 200 Output Total 700 Balance 1174 858 -500 Meds/Results Medications: Active Medications Generic Name Dose Route Start Last Admin Trade Name Freq PRN Reason Stop Dose Admin Acetaminophen 650 mg 02/11/24 18:00 02/13/24 05:56 Acetaminophen 325 Mg Tablet PO 650 mg Q6H CHEYANNE Administration Al Hydrox/Mg Hydrox/Simethicone 30 ml 02/11/24 02:39 Mag Hydrox/Al Hydrox/Simeth 30 Ml Udc PO Q6H PRN Indigestion Amlodipine Besylate 5 mg 02/11/24 09:00 02/13/24 09:21 Amlodipine Besylate 5 Mg Tablet BY MOUTH 5 mg DAILY CHEYANNE Administration Calcium Carbonate 500 mg 02/12/24 17:00 02/13/24 09:21 Calcium Carbonate (Oscal) 500 Mg Tablet PO 500 mg BIDWM CHEYANNE Administration Enoxaparin Sodium 40 mg 02/11/24 12:55 02/13/24 09:23 Enoxaparin 40 Mg/0.4 Ml Syringe SUB-Q 40 mg DAILY CHEYANNE Administration Losartan Potassium 50 mg 02/11/24 09:00 02/13/24 09:21 Losartan Potassium 50 Mg Tablet PO 50 mg DAILY CHEYANNE Administration Oxybutynin Chloride 5 mg 02/11/24 09:00 02/13/24 09:21 Oxybutynin Chloride 5 Mg Tablet PO 5 mg DAILY CHEYANNE Administration Polyethylene Glycol 17 gm 02/11/24 02:39 Polyethylene Glycol 3350 17 Gm Powd.Pack PO QAM PRN Constipation Polyethylene Glycol 17 gm 02/13/24 09:00 02/13/24 09:21 Polyethylene Glycol 3350 17 Gm Powd.Pack PO 17 gm QAM CHEYANNE Administration Senna/Docusate Sodium 2 tab 02/12/24 17:00 02/13/24 09:21 Senna/Docusate Sodium Tablet PO 2 tab BID CHEYANNE Administration Tramadol HCl 50 mg 02/10/24 22:07 02/13/24 09:22 Tramadol Hcl (*Crx) 50 Mg Tablet PO 50 mg Q4H PRN Administration Pain Rated 4-6 Vitamin D 5,000 units 02/12/24 11:15 02/13/24 09:21 Cholecalciferol 5,000 Units Tablet PO 5,000 units DAILY CHEYANNE Administration Radiology Results: ITS Impressions Pelvis CT 02/10/24 14:59 IMPRESSION: 1. Nondisplaced fractures at the right sacral ala, right pubic body and posterior lateral aspect of the right inferior pubic ramus. Lumbar Spine CT 02/10/24 15:07 IMPRESSION: 1. Chronic T12 burst fracture. 2. Nondisplaced acute fracture of the right sacral ala. 3. 10 degrees thoracolumbar levocurvature with mild spondylosis. 4. Large sliding-type hiatal hernia. Hip/Pelvis X-Ray 02/11/24 13:14 IMPRESSION: 1. Nondisplaced fracture of right parasymphyseal pubis. The other fractures seen by CT are not visible. 2. Mild osteoarthritis of the hips.
--- NOTE | 2024-02-13 10:49 | PCOTNOTE ---
Pt request to be seen this afternoon after voodoo service.
--- NOTE | 2024-02-13 11:47 | PM.IMPN ---
Progress Note: A&P Assessment and Plan (1) Unable to ambulate: Code(s): R26.2 - Difficulty in walking, not elsewhere classified Status: Acute Assessment and Plan: PT/OT monitor (2) Fall from ground level: Code(s): W18.30XA - Fall on same level, unspecified, initial encounter Status: Acute Assessment and Plan: Mechanical fall (3) Multiple pelvic fractures: Qualifiers: Encounter type: initial encounter Fracture alignment: without disruption of pelvic ring Fracture type: closed Qualified Code(s): S32.82XA - Multiple fractures of pelvis without disruption of pelvic ring, initial encounter for closed fracture Code(s): S32.82XA - Multiple fractures of pelvis without disruption of pelvic ring, initial encounter for closed fracture Status: Acute Assessment and Plan: Conservative management PRN pain control awating Placement Ortho following (4) Osteoporosis: Code(s): M81.0 - Age-related osteoporosis without current pathological fracture Status: Acute Assessment and Plan: Follow-up in outpatient setting (5) Gastroesophageal reflux disease: Code(s): K21.9 - Gastro-esophageal reflux disease without esophagitis Status: Acute Assessment and Plan: PPI (6) Essential (primary) hypertension: Code(s): I10 - Essential (primary) hypertension Status: Acute Assessment and Plan: Continue losartan and amlodipine Plan DVT prophylaxis on Sq Lovenox Subjective Date/time seen: 02/13/24 11:47 Interval history: Comfortable at bedside [place] recommends conservative management Awaiting placement Review of Systems Review of Systems: fall, pain with ambulation Exam Narrative: Laying in bed Const: General: comfortable, no acute distress, well developed, alert, awake and average body habitus Nutritional Appearance: average body habitus Orientation/consciousness: patient oriented x3 HENMT: Head: normal to inspection, normocephalic and atraumatic Ears: hearing grossly normal bilaterally Face/Nose/Sinus: normal facial exam Face and sinus: normal facial exam Eyes: General: appearance normal, both eyes and all related structures Pupils: Equal, round and reactive pupils present EOM: EOMs intact bilaterally Neck: Neck: full ROM, no lymphadenopathy and no JVD Thyroid: thyroid normal Lymphatic: no lymphadenopathy noted Resp: Effort & Inspection: normal respiratory effort and able to speak in complete sentences Auscultation: clear to auscultation bilaterally Cardio: Jugular venous distension: no JVD Rate: regular rate Rhythm: regular rhythm Heart sounds: S1 normal heart sound present and S2 normal heart sound present : General: Yes deferred Skin: Rashes: no rashes Wounds: no wounds Neuro: General: patient oriented x3, CN's II-XI intact bilaterally and Unable to assess gait Cranial nerves: Yes CN's II-XII intact bilaterally and Yes Equal, round and reactive pupils present Cognition (Neuro): normal cognition Speech: normal speech Gait exam (Neuro): Unable to assess gait Motor exam (neuro): 5/5 motor strength present throughout Extrem: General: normal to inspection, full ROM, no joint enlargement and no pedal edema Objective Data Vital Signs Vital Signs: Vital Signs - 24 hr 02/12/24 14:00 02/12/24 22:00 02/13/24 05:53 Temperature 99.1 F 97.9 F 98.7 F Pulse Rate 74 85 77 Respiratory Rate 18 18 16 Blood Pressure 120/70 134/83 139/79 Pulse Oximetry 95 93 91 Intake/Output Intake/Output: Intake & Output 02/10/24 02/11/24 02/12/24 02/13/24 23:59 23:59 23:59 23:59 Intake Total 1174 858 200 Output Total 700 Balance 1174 858 -500 Meds/Results Medications: Active Medications Generic Name Dose Route Start Last Admin Trade Name Freq PRN Reason Stop Dose Admin Acetaminophen 650 mg 02/11/24 18:00 02/13/24 05:56 Acetaminophen 325 Mg Tablet PO 650 mg Q6H CHEYANNE Administration Al Hydrox/Mg Hydrox/Simethicone 30 ml 02/11/24 02:39 Mag Hydrox/Al Hydrox/Simeth 30 Ml Udc PO Q6H PRN Indigestion Amlodipine Besylate 5 mg 02/11/24 09:00 02/13/24 09:21 Amlodipine Besylate 5 Mg Tablet BY MOUTH 5 mg DAILY CHEYANNE Administration Calcium Carbonate 500 mg 02/12/24 17:00 02/13/24 09:21 Calcium Carbonate (Oscal) 500 Mg Tablet PO 500 mg BIDWM CHEYANNE Administration Enoxaparin Sodium 40 mg 02/11/24 12:55 02/13/24 09:23 Enoxaparin 40 Mg/0.4 Ml Syringe SUB-Q 40 mg DAILY CHEYANNE Administration Losartan Potassium 50 mg 02/11/24 09:00 02/13/24 09:21 Losartan Potassium 50 Mg Tablet PO 50 mg DAILY CHEYANNE Administration Oxybutynin Chloride 5 mg 02/11/24 09:00 02/13/24 09:21 Oxybutynin Chloride 5 Mg Tablet PO 5 mg DAILY CHEYANNE Administration Polyethylene Glycol 17 gm 02/11/24 02:39 Polyethylene Glycol 3350 17 Gm Powd.Pack PO QAM PRN Constipation Polyethylene Glycol 17 gm 02/13/24 09:00 02/13/24 09:21 Polyethylene Glycol 3350 17 Gm Powd.Pack PO 17 gm QAM CHEYANNE Administration Senna/Docusate Sodium 2 tab 02/12/24 17:00 02/13/24 09:21 Senna/Docusate Sodium Tablet PO 2 tab BID CHEYANNE Administration Tramadol HCl 50 mg 02/10/24 22:07 02/13/24 09:22 Tramadol Hcl (*Crx) 50 Mg Tablet PO 50 mg Q4H PRN Administration Pain Rated 4-6 Vitamin D 5,000 units 02/12/24 11:15 02/13/24 09:21 Cholecalciferol 5,000 Units Tablet PO 5,000 units DAILY CHEYANNE Administration Radiology Results: ITS Impressions Pelvis CT 02/10/24 14:59 IMPRESSION: 1. Nondisplaced fractures at the right sacral ala, right pubic body and posterior lateral aspect of the right inferior pubic ramus. Lumbar Spine CT 02/10/24 15:07 IMPRESSION: 1. Chronic T12 burst fracture. 2. Nondisplaced acute fracture of the right sacral ala. 3. 10 degrees thoracolumbar levocurvature with mild spondylosis. 4. Large sliding-type hiatal hernia. Hip/Pelvis X-Ray 02/11/24 13:14 IMPRESSION: 1. Nondisplaced fracture of right parasymphyseal pubis. The other fractures seen by CT are not visible. 2. Mild osteoarthritis of the hips.
[2024-02-13 14:00] VITALS: BP 140/80; PULSE 72; RESP 18; TEMP 36.9; O2SAT 92
[2024-02-13 22:00] VITALS: BP 122/73; PULSE 63; RESP 18; TEMP 36.3; O2SAT 93
[2024-02-14] MEDS: ACETAMINOPHEN 325 MG TABLET 650 MG PO ×4 (05:07→23:10)
[2024-02-14 05:56] VITALS: BP 144/76; PULSE 76; RESP 16; TEMP 36.7; O2SAT 95
[2024-02-14 06:20] LABS: Hematocrit 37.8 % (37.0-47.0); Hemoglobin 12.5 g/dL (12.0-15.0); Mean Corpuscular HGB Conc 33.1 g/dl (32-36); Mean Corpuscular Volume 93.8 fl (80-100); Mean Platelet Volume 11.3 fl (7.4-10.4); Platelet Count Result 205 k/mm3 (150-375); Red Blood Count 4.03 M/mm3 (4.2-5.4); Red Cell Distribution Width 13.5 % (11.5-14.5); White Blood Count 5.5 K/mm3 (4.5-10.0)
[2024-02-14 08:00] VITALS: O2SAT 95
[2024-02-14] MEDS: amLODIPine BESYLATE 5 MG TABLET BY MOUTH (10:07)
[2024-02-14] MEDS: CALCIUM CARBONATE (OSCAL) 500 MG TABLET PO ×2 (10:07→17:11)
[2024-02-14] MEDS: CHOLECALCIFEROL 5,000 UNITS TABLET 5000 UNITS PO (10:08)
[2024-02-14] MEDS: oxyBUTYnin CHLORIDE 5 MG TABLET PO (10:08)
[2024-02-14] MEDS: LOSARTAN POTASSIUM 50 MG TABLET PO (10:08)
[2024-02-14] MEDS: ENOXAPARIN 40 MG/0.4 ML SYRINGE SUB-Q (10:08)
--- NOTE | 2024-02-14 13:06 | PM.PNORT ---
Progress Note: A&P Assessment and Plan (1) Multiple pelvic fractures: Qualifiers: Encounter type: initial encounter Fracture alignment: without disruption of pelvic ring Fracture type: closed Qualified Code(s): S32.82XA - Multiple fractures of pelvis without disruption of pelvic ring, initial encounter for closed fracture Code(s): S32.82XA - Multiple fractures of pelvis without disruption of pelvic ring, initial encounter for closed fracture Status: Acute Assessment and Plan: Patient was up in the chair again this morning. She feels that her pain is improving steadily day by day. She has been advised that transfer to rehab facility will be delayed for a couple of days awaiting insurance authorization. Platelets are 205,000 hemoglobin stable at 12.5. Subjective Subjective Date/Time Seen: 02/14/24 13:06 Objective Data Vital Signs Vital Signs: Vital Signs - 24 hr 02/13/24 14:00 02/13/24 22:00 02/14/24 05:56 Temperature 36.9 C 36.3 C L 36.7 C Pulse Rate 72 63 76 Respiratory Rate 18 18 16 Blood Pressure 140/80 122/73 144/76 H Pulse Oximetry 92 93 95 Oxygen Delivery 02/14/24 08:00 Temperature Pulse Rate Respiratory Rate Blood Pressure Pulse Oximetry 95 Oxygen Delivery Room Air Intake/Output Intake/Output: Intake & Output 02/11/24 02/12/24 02/13/24 02/14/24 23:59 23:59 23:59 23:59 Intake Total 7502 445 8137 860 Output Total 700 Balance 1174 858 820 860 Meds/Results Medications: Active Medications Generic Name Dose Route Start Last Admin Trade Name Freq PRN Reason Stop Dose Admin Acetaminophen 650 mg 02/11/24 18:00 02/14/24 11:43 Acetaminophen 325 Mg Tablet PO 650 mg Q6H CHEYANNE Administration Al Hydrox/Mg Hydrox/Simethicone 30 ml 02/11/24 02:39 Mag Hydrox/Al Hydrox/Simeth 30 Ml Udc PO Q6H PRN Indigestion Amlodipine Besylate 5 mg 02/11/24 09:00 02/14/24 10:07 Amlodipine Besylate 5 Mg Tablet BY MOUTH 5 mg DAILY CHEYANNE Administration Calcium Carbonate 500 mg 02/12/24 17:00 02/14/24 10:07 Calcium Carbonate (Oscal) 500 Mg Tablet PO 500 mg BIDWM CHEYANNE Administration Enoxaparin Sodium 40 mg 02/11/24 12:55 02/14/24 10:08 Enoxaparin 40 Mg/0.4 Ml Syringe SUB-Q 40 mg DAILY CHEYANNE Administration Losartan Potassium 50 mg 02/11/24 09:00 02/14/24 10:08 Losartan Potassium 50 Mg Tablet PO 50 mg DAILY CHEYANNE Administration Oxybutynin Chloride 5 mg 02/11/24 09:00 02/14/24 10:08 Oxybutynin Chloride 5 Mg Tablet PO 5 mg DAILY CHEYANNE Administration Polyethylene Glycol 17 gm 02/11/24 02:39 Polyethylene Glycol 3350 17 Gm Powd.Pack PO QAM PRN Constipation Polyethylene Glycol 17 gm 02/13/24 09:00 02/14/24 10:08 Polyethylene Glycol 3350 17 Gm Powd.Pack PO Not Given QAM CHEYANNE Senna/Docusate Sodium 2 tab 02/12/24 17:00 02/14/24 10:08 Senna/Docusate Sodium Tablet PO Not Given BID CHEYANNE Tramadol HCl 50 mg 02/10/24 22:07 02/13/24 13:01 Tramadol Hcl (*Crx) 50 Mg Tablet PO 50 mg Q4H PRN Administration Pain Rated 4-6 Vitamin D 5,000 units 02/12/24 11:15 02/14/24 10:08 Cholecalciferol 5,000 Units Tablet PO 5,000 units DAILY CHEYANNE Administration Radiology Results: ITS Impressions Pelvis CT 02/10/24 14:59 IMPRESSION: 1. Nondisplaced fractures at the right sacral ala, right pubic body and posterior lateral aspect of the right inferior pubic ramus. Lumbar Spine CT 02/10/24 15:07 IMPRESSION: 1. Chronic T12 burst fracture. 2. Nondisplaced acute fracture of the right sacral ala. 3. 10 degrees thoracolumbar levocurvature with mild spondylosis. 4. Large sliding-type hiatal hernia. Hip/Pelvis X-Ray 02/11/24 13:14 IMPRESSION: 1. Nondisplaced fracture of right parasymphyseal pubis. The other fractures seen by CT are not visible. 2. Mild osteoarthritis of the hips. Labs Labs: Laboratory Results - last 24 hr 02/14/24 06:09 WBC 5.5 RBC 4.03 L Hgb 12.5 Hct 37.8 MCV 93.8 MCH 31.0 MCHC 33.1 RDW 13.5 Plt Count 205 MPV 11.3 H
[2024-02-14 14:00] VITALS: BP 135/90; PULSE 75; RESP 20; TEMP 36.6; O2SAT 96
--- NOTE | 2024-02-14 14:14 | P.PNIM_ITS ---
Progress Note: A&P Assessment and Plan (1) Unable to ambulate: Code(s): R26.2 - Difficulty in walking, not elsewhere classified Status: Acute Assessment and Plan: PT/OT monitor (2) Fall from ground level: Code(s): W18.30XA - Fall on same level, unspecified, initial encounter Status: Acute Assessment and Plan: Mechanical fall (3) Multiple pelvic fractures: Qualifiers: Encounter type: initial encounter Fracture alignment: without disruption of pelvic ring Fracture type: closed Qualified Code(s): S32.82XA - Multiple fractures of pelvis without disruption of pelvic ring, initial encounter for closed fracture Code(s): S32.82XA - Multiple fractures of pelvis without disruption of pelvic ring, initial encounter for closed fracture Status: Acute Assessment and Plan: Conservative management PRN pain control awating Placement Ortho following (4) Osteoporosis: Code(s): M81.0 - Age-related osteoporosis without current pathological fracture Status: Acute Assessment and Plan: Follow-up in outpatient setting (5) Gastroesophageal reflux disease: Code(s): K21.9 - Gastro-esophageal reflux disease without esophagitis Status: Acute Assessment and Plan: PPI (6) Essential (primary) hypertension: Code(s): I10 - Essential (primary) hypertension Status: Acute Assessment and Plan: Continue losartan and amlodipine Plan DVT prophylaxis on Sq Lovenox Subjective Date/time seen: 02/14/24 14:14 Interval history: Comfortable at bedside [place] recommends conservative management Awaiting placement Review of Systems Review of Systems: fall, pain with ambulation Exam Narrative: Laying in bed Const: General: comfortable, no acute distress, well developed, alert, awake and average body habitus Nutritional Appearance: average body habitus Orientation/consciousness: patient oriented x3 HENMT: Head: normal to inspection, normocephalic and atraumatic Ears: hearing grossly normal bilaterally Face/Nose/Sinus: normal facial exam Face and sinus: normal facial exam Eyes: General: appearance normal, both eyes and all related structures Pupils: Equal, round and reactive pupils present EOM: EOMs intact bilaterally Neck: Neck: full ROM, no lymphadenopathy and no JVD Thyroid: thyroid normal Lymphatic: no lymphadenopathy noted Resp: Effort & Inspection: normal respiratory effort and able to speak in complete sentences Auscultation: clear to auscultation bilaterally Cardio: Jugular venous distension: no JVD Rate: regular rate Rhythm: regular rhythm Heart sounds: S1 normal heart sound present and S2 normal heart sound present : General: Yes deferred Skin: Rashes: no rashes Wounds: no wounds Neuro: General: patient oriented x3, CN's II-XI intact bilaterally and Unable to assess gait Cranial nerves: Yes CN's II-XII intact bilaterally and Yes Equal, round and reactive pupils present Cognition (Neuro): normal cognition Speech: normal speech Gait exam (Neuro): Unable to assess gait Motor exam (neuro): 5/5 motor strength present throughout Extrem: General: normal to inspection, full ROM, no joint enlargement and no pedal edema Objective Data Vital Signs Vital Signs: Vital Signs - 24 hr 02/13/24 22:00 02/14/24 05:56 02/14/24 08:00 Temperature 97.4 F L 98.0 F Pulse Rate 63 76 Respiratory Rate 18 16 Blood Pressure 122/73 144/76 H Pulse Oximetry 93 95 95 Oxygen Delivery Room Air Intake/Output Intake/Output: Intake & Output 02/11/24 02/12/24 02/13/24 02/14/24 23:59 23:59 23:59 23:59 Intake Total 0611 517 3727 860 Output Total 700 Balance 1174 858 820 860 Meds/Results Medications: Active Medications Generic Name Dose Route Start Last Admin Trade Name Freq PRN Reason Stop Dose Admin Acetaminophen 650 mg 02/11/24 18:00 02/14/24 11:43 Acetaminophen 325 Mg Tablet PO 650 mg Q6H CHEYANNE Administration Al Hydrox/Mg Hydrox/Simethicone 30 ml 02/11/24 02:39 Mag Hydrox/Al Hydrox/Simeth 30 Ml Udc PO Q6H PRN Indigestion Amlodipine Besylate 5 mg 02/11/24 09:00 02/14/24 10:07 Amlodipine Besylate 5 Mg Tablet BY MOUTH 5 mg DAILY CHEYANNE Administration Calcium Carbonate 500 mg 02/12/24 17:00 02/14/24 10:07 Calcium Carbonate (Oscal) 500 Mg Tablet PO 500 mg BIDWM CHEYANNE Administration Enoxaparin Sodium 40 mg 02/11/24 12:55 02/14/24 10:08 Enoxaparin 40 Mg/0.4 Ml Syringe SUB-Q 40 mg DAILY CHEYANNE Administration Losartan Potassium 50 mg 02/11/24 09:00 02/14/24 10:08 Losartan Potassium 50 Mg Tablet PO 50 mg DAILY CHEYANNE Administration Oxybutynin Chloride 5 mg 02/11/24 09:00 02/14/24 10:08 Oxybutynin Chloride 5 Mg Tablet PO 5 mg DAILY CHEYANNE Administration Polyethylene Glycol 17 gm 02/11/24 02:39 Polyethylene Glycol 3350 17 Gm Powd.Pack PO QAM PRN Constipation Polyethylene Glycol 17 gm 02/13/24 09:00 02/14/24 10:08 Polyethylene Glycol 3350 17 Gm Powd.Pack PO Not Given QAM CHEYANNE Senna/Docusate Sodium 2 tab 02/12/24 17:00 02/14/24 10:08 Senna/Docusate Sodium Tablet PO Not Given BID CHEYANNE Tramadol HCl 50 mg 02/10/24 22:07 02/13/24 13:01 Tramadol Hcl (*Crx) 50 Mg Tablet PO 50 mg Q4H PRN Administration Pain Rated 4-6 Vitamin D 5,000 units 02/12/24 11:15 02/14/24 10:08 Cholecalciferol 5,000 Units Tablet PO 5,000 units DAILY CHEYANNE Administration Radiology Results: ITS Impressions Pelvis CT 02/10/24 14:59 IMPRESSION: 1. Nondisplaced fractures at the right sacral ala, right pubic body and posterior lateral aspect of the right inferior pubic ramus. Lumbar Spine CT 02/10/24 15:07 IMPRESSION: 1. Chronic T12 burst fracture. 2. Nondisplaced acute fracture of the right sacral ala. 3. 10 degrees thoracolumbar levocurvature with mild spondylosis. 4. Large sliding-type hiatal hernia. Hip/Pelvis X-Ray 02/11/24 13:14 IMPRESSION: 1. Nondisplaced fracture of right parasymphyseal pubis. The other fractures seen by CT are not visible. 2. Mild osteoarthritis of the hips. Labs Labs: Laboratory Results - last 24 hr 02/14/24 06:09 WBC 5.5 RBC 4.03 L Hgb 12.5 Hct 37.8 MCV 93.8 MCH 31.0 MCHC 33.1 RDW 13.5 Plt Count 205 MPV 11.3 H
[2024-02-14 21:37] VITALS: BP 137/79; PULSE 73; RESP 18; TEMP 36.9; O2SAT 99
[2024-02-15] MEDS: ACETAMINOPHEN 325 MG TABLET 650 MG PO ×2 (05:16→12:54)
[2024-02-15 06:00] VITALS: BP 137/76; PULSE 62; RESP 18; TEMP 36.4; O2SAT 95
[2024-02-15] MEDS: CALCIUM CARBONATE (OSCAL) 500 MG TABLET PO (09:38)
[2024-02-15] MEDS: polyethylene glycoL 3350 17 GM POWD.PACK PO (09:38)
[2024-02-15] MEDS: LOSARTAN POTASSIUM 50 MG TABLET PO (09:39)
[2024-02-15] MEDS: amLODIPine BESYLATE 5 MG TABLET BY MOUTH (09:39)
[2024-02-15] MEDS: ENOXAPARIN 40 MG/0.4 ML SYRINGE SUB-Q (09:39)
[2024-02-15] MEDS: CHOLECALCIFEROL 5,000 UNITS TABLET 5000 UNITS PO (09:39)
[2024-02-15] MEDS: SENNA/DOCUSATE SODIUM TABLET 2 TAB PO (09:39)
[2024-02-15] MEDS: oxyBUTYnin CHLORIDE 5 MG TABLET PO (09:39)
--- NOTE | 2024-02-15 10:46 | P.PNIM_ITS ---
Progress Note: A&P Assessment and Plan (1) Unable to ambulate: Code(s): R26.2 - Difficulty in walking, not elsewhere classified Status: Acute Assessment and Plan: PT/OT monitor (2) Fall from ground level: Code(s): W18.30XA - Fall on same level, unspecified, initial encounter Status: Acute Assessment and Plan: Mechanical fall (3) Multiple pelvic fractures: Qualifiers: Encounter type: initial encounter Fracture alignment: without disruption of pelvic ring Fracture type: closed Qualified Code(s): S32.82XA - Multiple fractures of pelvis without disruption of pelvic ring, initial encounter for closed fracture Code(s): S32.82XA - Multiple fractures of pelvis without disruption of pelvic ring, initial encounter for closed fracture Status: Acute Assessment and Plan: Conservative management PRN pain control awating Placement Ortho following (4) Osteoporosis: Code(s): M81.0 - Age-related osteoporosis without current pathological fracture Status: Acute Assessment and Plan: Follow-up in outpatient setting (5) Gastroesophageal reflux disease: Code(s): K21.9 - Gastro-esophageal reflux disease without esophagitis Status: Acute Assessment and Plan: PPI (6) Essential (primary) hypertension: Code(s): I10 - Essential (primary) hypertension Status: Acute Assessment and Plan: Continue losartan and amlodipine Plan DVT prophylaxis on Sq Lovenox Full code Waiting for placement. Subjective Date/time seen: 02/15/24 10:46 Interval history: Patient was seen during the morning. Patient is feeling better. No shortness of breath chest pain. Comfortable at bedside [place] recommends conservative management Awaiting placement Review of Systems Review of Systems: fall, pain with ambulation Exam Narrative: Laying in bed Const: General: comfortable, no acute distress, well developed, alert, awake and average body habitus Nutritional Appearance: average body habitus Orientation/consciousness: patient oriented x3 HENMT: Head: normal to inspection, normocephalic and atraumatic Ears: hearing grossly normal bilaterally Face/Nose/Sinus: normal facial exam Face and sinus: normal facial exam Eyes: General: appearance normal, both eyes and all related structures Pupils: Equal, round and reactive pupils present EOM: EOMs intact bilaterally Neck: Neck: full ROM, no lymphadenopathy and no JVD Thyroid: thyroid normal Lymphatic: no lymphadenopathy noted Resp: Effort & Inspection: normal respiratory effort and able to speak in complete sentences Auscultation: clear to auscultation bilaterally Cardio: Jugular venous distension: no JVD Rate: regular rate Rhythm: regular rhythm Heart sounds: S1 normal heart sound present and S2 normal heart sound present : General: Yes deferred Skin: Rashes: no rashes Wounds: no wounds Neuro: General: patient oriented x3, CN's II-XI intact bilaterally and Unable to assess gait Cranial nerves: Yes CN's II-XII intact bilaterally and Yes Equal, round and reactive pupils present Cognition (Neuro): normal cognition Speech: normal speech Gait exam (Neuro): Unable to assess gait Motor exam (neuro): 5/5 motor strength present throughout Extrem: General: normal to inspection, full ROM, no joint enlargement and no pedal edema Objective Data Vital Signs Vital Signs: Vital Signs - 24 hr 02/14/24 14:00 02/14/24 21:37 02/15/24 06:00 Temperature 36.6 C 36.9 C 36.4 C Pulse Rate 75 73 62 Respiratory Rate 20 18 18 Blood Pressure 135/90 137/79 137/76 Pulse Oximetry 96 99 95 Oxygen Delivery 02/15/24 08:00 Temperature Pulse Rate Respiratory Rate Blood Pressure Pulse Oximetry Oxygen Delivery Room Air Intake/Output Intake/Output: Intake & Output 02/12/24 02/13/24 02/14/24 02/15/24 23:59 23:59 23:59 23:59 Intake Total 858 1520 7080 440 Output Total 700 800 450 Balance 528 570 6706 -10 Meds/Results Medications: Active Medications Generic Name Dose Route Start Last Admin Trade Name Ann PRN Reason Stop Dose Admin Acetaminophen 650 mg 02/11/24 18:00 02/15/24 05:16 Acetaminophen 325 Mg Tablet PO 650 mg Q6H CHEYANNE Administration Al Hydrox/Mg Hydrox/Simethicone 30 ml 02/11/24 02:39 Mag Hydrox/Al Hydrox/Simeth 30 Ml Udc PO Q6H PRN Indigestion Amlodipine Besylate 5 mg 02/11/24 09:00 02/15/24 09:39 Amlodipine Besylate 5 Mg Tablet BY MOUTH 5 mg DAILY CHEYANNE Administration Calcium Carbonate 500 mg 02/12/24 17:00 02/15/24 09:38 Calcium Carbonate (Oscal) 500 Mg Tablet PO 500 mg BIDWM CHEYANNE Administration Enoxaparin Sodium 40 mg 02/11/24 12:55 02/15/24 09:39 Enoxaparin 40 Mg/0.4 Ml Syringe SUB-Q 40 mg DAILY CHEYANNE Administration Losartan Potassium 50 mg 02/11/24 09:00 02/15/24 09:39 Losartan Potassium 50 Mg Tablet PO 50 mg DAILY CHEYANNE Administration Oxybutynin Chloride 5 mg 02/11/24 09:00 02/15/24 09:39 Oxybutynin Chloride 5 Mg Tablet PO 5 mg DAILY CHEYANNE Administration Polyethylene Glycol 17 gm 02/11/24 02:39 Polyethylene Glycol 3350 17 Gm Powd.Pack PO QAM PRN Constipation Polyethylene Glycol 17 gm 02/13/24 09:00 02/15/24 09:38 Polyethylene Glycol 3350 17 Gm Powd.Pack PO 17 gm QAM CHEYANNE Administration Senna/Docusate Sodium 2 tab 02/12/24 17:00 02/15/24 09:39 Senna/Docusate Sodium Tablet PO 2 tab BID CHEYANNE Administration Tramadol HCl 50 mg 02/10/24 22:07 02/13/24 13:01 Tramadol Hcl (*Crx) 50 Mg Tablet PO 50 mg Q4H PRN Administration Pain Rated 4-6 Vitamin D 5,000 units 02/12/24 11:15 02/15/24 09:39 Cholecalciferol 5,000 Units Tablet PO 5,000 units DAILY CHEYANNE Administration Radiology Results: ITS Impressions Pelvis CT 02/10/24 14:59 IMPRESSION: 1. Nondisplaced fractures at the right sacral ala, right pubic body and posterior lateral aspect of the right inferior pubic ramus. Lumbar Spine CT 02/10/24 15:07 IMPRESSION: 1. Chronic T12 burst fracture. 2. Nondisplaced acute fracture of the right sacral ala. 3. 10 degrees thoracolumbar levocurvature with mild spondylosis. 4. Large sliding-type hiatal hernia. Hip/Pelvis X-Ray 02/11/24 13:14 IMPRESSION: 1. Nondisplaced fracture of right parasymphyseal pubis. The other fractures seen by CT are not visible. 2. Mild osteoarthritis of the hips.
[2024-02-15 14:00] VITALS: BP 142/75; PULSE 92; RESP 16; TEMP 36.5; O2SAT 98
[2024-02-15 22:00] VITALS: BP 152/84; PULSE 87; RESP 18; TEMP 36.9; O2SAT 93
[2024-02-16 06:00] VITALS: BP 157/91; PULSE 74; RESP 18; TEMP 36.8; O2SAT 99
[2024-02-16] MEDS: CHOLECALCIFEROL 5,000 UNITS TABLET 5000 UNITS PO (08:48)
[2024-02-16] MEDS: CALCIUM CARBONATE (OSCAL) 500 MG TABLET PO (08:48)
[2024-02-16] MEDS: LOSARTAN POTASSIUM 50 MG TABLET PO (08:48)
[2024-02-16] MEDS: amLODIPine BESYLATE 5 MG TABLET BY MOUTH (08:49)
[2024-02-16] MEDS: oxyBUTYnin CHLORIDE 5 MG TABLET PO (08:49)
[2024-02-16] MEDS: ENOXAPARIN 40 MG/0.4 ML SYRINGE SUB-Q (08:50)
--- NOTE | 2024-02-16 12:42 | PM.IMPN ---
Progress Note: A&P Assessment and Plan (1) Unable to ambulate: Code(s): R26.2 - Difficulty in walking, not elsewhere classified Status: Acute Assessment and Plan: PT/OT monitor (2) Fall from ground level: Code(s): W18.30XA - Fall on same level, unspecified, initial encounter Status: Acute Assessment and Plan: Mechanical fall (3) Multiple pelvic fractures: Qualifiers: Encounter type: initial encounter Fracture alignment: without disruption of pelvic ring Fracture type: closed Qualified Code(s): S32.82XA - Multiple fractures of pelvis without disruption of pelvic ring, initial encounter for closed fracture Code(s): S32.82XA - Multiple fractures of pelvis without disruption of pelvic ring, initial encounter for closed fracture Status: Acute Assessment and Plan: Conservative management PRN pain control awating Placement Ortho following (4) Osteoporosis: Code(s): M81.0 - Age-related osteoporosis without current pathological fracture Status: Acute Assessment and Plan: Follow-up in outpatient setting (5) Gastroesophageal reflux disease: Code(s): K21.9 - Gastro-esophageal reflux disease without esophagitis Status: Acute Assessment and Plan: PPI (6) Essential (primary) hypertension: Code(s): I10 - Essential (primary) hypertension Status: Acute Assessment and Plan: Continue losartan and amlodipine Plan DVT prophylaxis on Sq Lovenox Full code Waiting for placement. Subjective Date/time seen: 02/16/24 12:42 Interval history: Patient was seen during the morning. No new overnight complaints. Patient is feeling better. No shortness of breath chest pain. Comfortable at bedside [place] recommends conservative management Awaiting placement Review of Systems Review of Systems: fall, pain with ambulation Exam Narrative: Laying in bed Const: General: comfortable, no acute distress, well developed, alert, awake and average body habitus Nutritional Appearance: average body habitus Orientation/consciousness: patient oriented x3 HENMT: Head: normal to inspection, normocephalic and atraumatic Ears: hearing grossly normal bilaterally Face/Nose/Sinus: normal facial exam Face and sinus: normal facial exam Eyes: General: appearance normal, both eyes and all related structures Pupils: Equal, round and reactive pupils present EOM: EOMs intact bilaterally Neck: Neck: full ROM, no lymphadenopathy and no JVD Thyroid: thyroid normal Lymphatic: no lymphadenopathy noted Resp: Effort & Inspection: normal respiratory effort and able to speak in complete sentences Auscultation: clear to auscultation bilaterally Cardio: Jugular venous distension: no JVD Rate: regular rate Rhythm: regular rhythm Heart sounds: S1 normal heart sound present and S2 normal heart sound present : General: Yes deferred Skin: Rashes: no rashes Wounds: no wounds Neuro: General: patient oriented x3, CN's II-XI intact bilaterally and Unable to assess gait Cranial nerves: Yes CN's II-XII intact bilaterally and Yes Equal, round and reactive pupils present Cognition (Neuro): normal cognition Speech: normal speech Gait exam (Neuro): Unable to assess gait Motor exam (neuro): 5/5 motor strength present throughout Extrem: General: normal to inspection, full ROM, no joint enlargement and no pedal edema Objective Data Vital Signs Vital Signs: Vital Signs - 24 hr 02/15/24 14:00 02/15/24 20:00 02/15/24 22:00 Temperature 36.5 C 36.9 C Pulse Rate 92 87 Respiratory Rate 16 18 Blood Pressure 142/75 H 152/84 H Pulse Oximetry 98 93 Oxygen Delivery Room Air 02/16/24 06:00 02/16/24 08:00 Temperature 36.8 C Pulse Rate 74 Respiratory Rate 18 Blood Pressure 157/91 H Pulse Oximetry 99 Oxygen Delivery Room Air Intake/Output Intake/Output: Intake & Output 02/13/24 02/14/24 02/15/24 02/16/24 23:59 23:59 23:59 23:59 Intake Total 1520 7080 920 1000 Output Total 700 800 450 Balance 820 6280 470 1000 Meds/Results Medications: Active Medications Generic Name Dose Route Start Last Admin Trade Name Freq PRN Reason Stop Dose Admin Acetaminophen 650 mg 02/11/24 18:00 02/16/24 05:21 Acetaminophen 325 Mg Tablet PO Not Given Q6H CHEYANNE Al Hydrox/Mg Hydrox/Simethicone 30 ml 02/11/24 02:39 Mag Hydrox/Al Hydrox/Simeth 30 Ml Udc PO Q6H PRN Indigestion Amlodipine Besylate 5 mg 02/11/24 09:00 02/16/24 08:49 Amlodipine Besylate 5 Mg Tablet BY MOUTH 5 mg DAILY CHEYANNE Administration Calcium Carbonate 500 mg 02/12/24 17:00 02/16/24 08:48 Calcium Carbonate (Oscal) 500 Mg Tablet PO 500 mg BIDWM CHEYANNE Administration Enoxaparin Sodium 40 mg 02/11/24 12:55 02/16/24 08:50 Enoxaparin 40 Mg/0.4 Ml Syringe SUB-Q 40 mg DAILY CHEYANNE Administration Losartan Potassium 50 mg 02/11/24 09:00 02/16/24 08:48 Losartan Potassium 50 Mg Tablet PO 50 mg DAILY CHEYANNE Administration Oxybutynin Chloride 5 mg 02/11/24 09:00 02/16/24 08:49 Oxybutynin Chloride 5 Mg Tablet PO 5 mg DAILY CHEYANNE Administration Polyethylene Glycol 17 gm 02/11/24 02:39 Polyethylene Glycol 3350 17 Gm Powd.Pack PO QAM PRN Constipation Polyethylene Glycol 17 gm 02/13/24 09:00 02/16/24 09:00 Polyethylene Glycol 3350 17 Gm Powd.Pack PO Not Given QAM CHEYANNE Senna/Docusate Sodium 2 tab 02/12/24 17:00 02/16/24 09:00 Senna/Docusate Sodium Tablet PO Not Given BID CHEYANNE Tramadol HCl 50 mg 02/10/24 22:07 02/13/24 13:01 Tramadol Hcl (*Crx) 50 Mg Tablet PO 50 mg Q4H PRN Administration Pain Rated 4-6 Vitamin D 5,000 units 02/12/24 11:15 02/16/24 08:48 Cholecalciferol 5,000 Units Tablet PO 5,000 units DAILY CHEYANNE Administration Radiology Results: ITS Impressions Pelvis CT 02/10/24 14:59 IMPRESSION: 1. Nondisplaced fractures at the right sacral ala, right pubic body and posterior lateral aspect of the right inferior pubic ramus. Lumbar Spine CT 02/10/24 15:07 IMPRESSION: 1. Chronic T12 burst fracture. 2. Nondisplaced acute fracture of the right sacral ala. 3. 10 degrees thoracolumbar levocurvature with mild spondylosis. 4. Large sliding-type hiatal hernia. Hip/Pelvis X-Ray 02/11/24 13:14 IMPRESSION: 1. Nondisplaced fracture of right parasymphyseal pubis. The other fractures seen by CT are not visible. 2. Mild osteoarthritis of the hips.
[2024-02-16 14:00] VITALS: BP 149/79; PULSE 89; RESP 16; TEMP 36.8; O2SAT 99
[2024-02-16 22:00] VITALS: BP 151/79; PULSE 66; RESP 18; TEMP 36.4; O2SAT 99
[2024-02-17] VITALS (8 sets, daily range): BP systolic 108–115; BP diastolic 67–81; PULSE 63–133; RESP 16–18; TEMP 36.4–36.7; O2SAT 96–99
--- NOTE | 2024-02-17 05:18 | ECG_ITS ---
Test Date: 2024-02-17 05:30:15 Measurements Intervals [place] Rate: 125 P: 0 MT: 0 QRS: 124 QRSD: 98 T: 30 QT: 301 QTc: 434 Interpretive Statements ATRIAL FIBRILLATION WITH RAPID VENTRICULAR RESPONSE POSSIBLE RIGHT VENTRICULAR HYPERTROPHY [SOME/ALL OF: PROMINENT R IN V1, LATE TRANSITION, RAD, AGUSTIN, SSS] MINIMAL ST DEPRESSION [0.025+ mV ST DEPRESSION] No previous ECG available for comparison Electronically Signed On 02-21-2024 11:18:37 [employer]IOR SALES ASSIST[employer] by Matt Hussein M.D.
[2024-02-17 05:52] LABS: Basophils Percent Auto 0.5 % (0.2-1.2); Eosinophils Absolute Auto 0.1 K/mm3 (0-0.3); Hematocrit 40.1 % (37.0-47.0); Hemoglobin 13.2 g/dL (12.0-15.0); Immature Granulocyte Absolute 0.02 K/mm3 (0.00-0.031); Immature Granulocyte Percent A 0.3 % (0-0.5); Lymphocytes Absolute Auto 2.01 K/mm3 (0.9-3.2); Lymphocytes Percent Auto 30.4 % (18.3-44.2); Mean Corpuscular HGB Conc 32.9 g/dl (32-36); Mean Corpuscular Hemoglobin 31.1 pg (26-34); Mean Corpuscular Volume 94.6 fl (80-100); Mean Platelet Volume 11.4 fl (7.4-10.4); Monocytes Absolute Auto 0.8 K/mm3 (0.1-0.6); Monocytes Percent Auto 11.3 % (2.6-8.5); Neutrophils Absolute Auto 3.7 K/mm3 (1.3-6.7); Neutrophils Percent Auto 55.5 % (45.5-73.1); Platelet Count Result 270 k/mm3 (150-375); Red Blood Count 4.24 M/mm3 (4.2-5.4); Red Cell Distribution Width 13.8 % (11.5-14.5); White Blood Count 6.6 K/mm3 (4.5-10.0)
[2024-02-17 05:57] LABS: Alanine Aminotransferase 63 U/L (6-35); Albumin Level 3.4 g/dL (3.5-5.1); Alkaline Phosphatase 109 U/L (38-126); Anion Gap 4 mmol/L (4-12); Aspartate Amino Transferase 67 U/L (14-36); Bilirubin,Total 0.5 mg/dL (0.2-1.3); Blood Urea Nitrogen 10 mg/dL (7-17); Carbon Dioxide 24 mmol/L (22-30); Chloride 110 mmol/L (98-107); Estimated CRCL calculation 57 ml/min; Estimated Glomerular Filt Rate > 60; Glucose 117 mg/dL (65-110); Magnesium 2.1 mg/dL (1.6-2.3); Potassium 3.6 mmol/L (3.4-5.0); Sodium 138 mmol/L (137-145)
[2024-02-17 05:59] LABS: Lactic Acid Reflex 1.5 mmol/L (0.7-2.0)
[2024-02-17] MEDS: dilTIAZem HCl INJ 25 MG/5 ML VIAL 20 MG IV PUSH (05:59)
[2024-02-17] MEDS: oxyBUTYnin CHLORIDE 5 MG TABLET PO (08:37)
[2024-02-17] MEDS: CHOLECALCIFEROL 5,000 UNITS TABLET 5000 UNITS PO (08:37)
[2024-02-17] MEDS: SENNA/DOCUSATE SODIUM TABLET 2 TAB PO ×2 (08:37→18:19)
[2024-02-17] MEDS: LOSARTAN POTASSIUM 50 MG TABLET PO (08:37)
[2024-02-17] MEDS: CALCIUM CARBONATE (OSCAL) 500 MG TABLET PO ×2 (08:37→18:19)
[2024-02-17] MEDS: ENOXAPARIN 40 MG/0.4 ML SYRINGE SUB-Q (08:37)
[2024-02-17] MEDS: polyethylene glycoL 3350 17 GM POWD.PACK PO (08:37)
[2024-02-17] MEDS: amLODIPine BESYLATE 5 MG TABLET BY MOUTH (08:37)
--- NOTE | 2024-02-17 08:52 | PCPTNOTE ---
Attempted to see patient for PT, however patient's heart rate was increasing to 130s-150s at rest. Patient not appropriate for therapy at this time due to increase heart rate.
--- NOTE | 2024-02-17 09:23 | PCOTNOTE ---
Per RN, Patient not to be seen for therapy treatment at this time. Patient having increased heart rates, and unable to participate at this time.
--- NOTE | 2024-02-17 10:35 | P.PNIM_ITS ---
Progress Note: A&P Assessment and Plan (1) Unable to ambulate: Code(s): R26.2 - Difficulty in walking, not elsewhere classified Status: Acute Assessment and Plan: PT/OT monitor (2) Fall from ground level: Code(s): W18.30XA - Fall on same level, unspecified, initial encounter Status: Acute Assessment and Plan: Mechanical fall (3) Multiple pelvic fractures: Qualifiers: Encounter type: initial encounter Fracture alignment: without disruption of pelvic ring Fracture type: closed Qualified Code(s): S32.82XA - Multiple fractures of pelvis without disruption of pelvic ring, initial encounter for closed fracture Code(s): S32.82XA - Multiple fractures of pelvis without disruption of pelvic ring, initial encounter for closed fracture Status: Acute Assessment and Plan: Conservative management PRN pain control awating Placement Ortho following (4) Osteoporosis: Code(s): M81.0 - Age-related osteoporosis without current pathological fracture Status: Acute Assessment and Plan: Follow-up in outpatient setting (5) Gastroesophageal reflux disease: Code(s): K21.9 - Gastro-esophageal reflux disease without esophagitis Status: Acute Assessment and Plan: PPI (6) Essential (primary) hypertension: Code(s): I10 - Essential (primary) hypertension Status: Acute Assessment and Plan: Continue losartan and amlodipine (7) New onset atrial fibrillation: Code(s): I48.91 - Unspecified atrial fibrillation Status: Acute Assessment and Plan: Given Cardizem 20 mg IV 1 time Echo pending Miguelito Vasc of 4 Cardiology consult and appreciate recommendation Currently on sinus rhythm If necessary will start metoprolol 12.5 mg p.o. b.i.d. Plan DVT prophylaxis on Sq Lovenox Full code Waiting for placement. Subjective Date/time seen: 02/17/24 10:35 Interval history: Night team reported new episode of AFib with RVR and was given Cardizem 20. Morning she had heart rate around 120 to 130s but later converted back to sinus rhythm. Consulted Cardiology and appreciate recommendation. Her blood pressure on soft side. Since her blood pressure is on the soft side advised to consult Cardiology and possibly starting on amiodarone. Ordered echo. Miguelito Vasc score of 4. Patient is not on anticoagulation. Discussed with the Cardiology and advised can be given metoprolol 25 mg if necessary. Patient echocardiogram still not performed. Since her blood pressure on the soft side advised the nursing team to give metoprolol 12.5 mg if necessary. Review of Systems Review of Systems: fall, pain with ambulation Exam Narrative: Laying in bed Const: General: comfortable, no acute distress, well developed, alert, awake and average body habitus Nutritional Appearance: average body habitus Orientation/consciousness: patient oriented x3 HENMT: Head: normal to inspection, normocephalic and atraumatic Ears: hearing grossly normal bilaterally Face/Nose/Sinus: normal facial exam Face and sinus: normal facial exam Eyes: General: appearance normal, both eyes and all related structures Pupils: Equal, round and reactive pupils present EOM: EOMs intact bilaterally Neck: Neck: full ROM, no lymphadenopathy and no JVD Thyroid: thyroid normal Lymphatic: no lymphadenopathy noted Resp: Effort & Inspection: normal respiratory effort and able to speak in complete sentences Auscultation: clear to auscultation bilaterally Cardio: Jugular venous distension: no JVD Rate: regular rate Rhythm: regular rhythm Heart sounds: S1 normal heart sound present and S2 normal heart sound present : General: Yes deferred Skin: Rashes: no rashes Wounds: no wounds Neuro: General: patient oriented x3, CN's II-XI intact bilaterally and Unable to assess gait Cranial nerves: Yes CN's II-XII intact bilaterally and Yes Equal, round and reactive pupils present Cognition (Neuro): normal cognition Speech: normal speech Gait exam (Neuro): Unable to assess gait Motor exam (neuro): 5/5 motor strength present throughout Extrem: General: normal to inspection, full ROM, no joint enlargement and no pedal edema Objective Data Vital Signs Vital Signs: Vital Signs - 24 hr 02/16/24 14:00 02/16/24 20:00 02/16/24 22:00 Temperature 98.2 F 97.6 F Pulse Rate 89 66 Respiratory Rate 16 18 Blood Pressure 149/79 H 151/79 H Pulse Oximetry 99 99 Oxygen Delivery Room Air 02/17/24 05:43 02/17/24 06:00 02/17/24 08:40 Temperature 98.1 F Pulse Rate 133 H 84 Respiratory Rate 18 Blood Pressure 108/81 Pulse Oximetry 97 Oxygen Delivery Room Air Intake/Output Intake/Output: Intake & Output 12/30/24 12/31/24 01/01/25 01/02/25 23:59 23:59 23:59 23:59 Intake Total 7080 920 1280 590 Output Total 800 450 Balance 6280 470 1280 590 Meds/Results Medications: Active Medications Generic Name Dose Route Start Last Admin Trade Name Freq PRN Reason Stop Dose Admin Acetaminophen 650 mg 02/11/24 18:00 02/17/24 05:48 Acetaminophen 325 Mg Tablet PO Not Given Q6H CHEYANNE Al Hydrox/Mg Hydrox/Simethicone 30 ml 02/11/24 02:39 Mag Hydrox/Al Hydrox/Simeth 30 Ml Udc PO Q6H PRN Indigestion Amlodipine Besylate 5 mg 02/11/24 09:00 02/17/24 08:37 Amlodipine Besylate 5 Mg Tablet BY MOUTH 5 mg DAILY CHEYANNE Administration Calcium Carbonate 500 mg 02/12/24 17:00 02/17/24 08:37 Calcium Carbonate (Oscal) 500 Mg Tablet PO 500 mg BIDWM CHEYANNE Administration Enoxaparin Sodium 40 mg 02/11/24 12:55 02/17/24 08:37 Enoxaparin 40 Mg/0.4 Ml Syringe SUB-Q 40 mg DAILY CHEYANNE Administration Losartan Potassium 50 mg 02/11/24 09:00 02/17/24 08:37 Losartan Potassium 50 Mg Tablet PO 50 mg DAILY CHEYANNE Administration Oxybutynin Chloride 5 mg 02/11/24 09:00 02/17/24 08:37 Oxybutynin Chloride 5 Mg Tablet PO 5 mg DAILY CHEYANNE Administration Polyethylene Glycol 17 gm 02/11/24 02:39 Polyethylene Glycol 3350 17 Gm Powd.Pack PO QAM PRN Constipation Polyethylene Glycol 17 gm 02/13/24 09:00 02/17/24 08:37 Polyethylene Glycol 3350 17 Gm Powd.Pack PO 17 gm QAM CHEYANNE Administration Senna/Docusate Sodium 2 tab 02/12/24 17:00 02/17/24 08:37 Senna/Docusate Sodium Tablet PO 2 tab BID CHEYANNE Administration Tramadol HCl 50 mg 02/10/24 22:07 02/13/24 13:01 Tramadol Hcl (*Crx) 50 Mg Tablet PO 50 mg Q4H PRN Administration Pain Rated 4-6 Vitamin D 5,000 units 02/12/24 11:15 02/17/24 08:37 Cholecalciferol 5,000 Units Tablet PO 5,000 units DAILY CHEYANNE Administration Radiology Results: ITS Impressions Pelvis CT 02/10/24 14:59 IMPRESSION: 1. Nondisplaced fractures at the right sacral ala, right pubic body and posterior lateral aspect of the right inferior pubic ramus. Lumbar Spine CT 02/10/24 15:07 IMPRESSION: 1. Chronic T12 burst fracture. 2. Nondisplaced acute fracture of the right sacral ala. 3. 10 degrees thoracolumbar levocurvature with mild spondylosis. 4. Large sliding-type hiatal hernia. Hip/Pelvis X-Ray 02/11/24 13:14 IMPRESSION: 1. Nondisplaced fracture of right parasymphyseal pubis. The other fractures seen by CT are not visible. 2. Mild osteoarthritis of the hips. Labs Labs: Laboratory Results - last 24 hr 02/17/24 05:30 WBC 6.6 RBC 4.24 Hgb 13.2 Hct 40.1 MCV 94.6 MCH 31.1 MCHC 32.9 RDW 13.8 Plt Count 270 MPV 11.4 H Immature Gran % (Auto) 0.3 Neut % (Auto) 55.5 Lymph % (Auto) 30.4 [place] % (Auto) 11.3 H Eos % (Auto) 2.0 Baso % (Auto) 0.5 Lymph # (Auto) 2.01 [place] # (Auto) 0.8 H Eos # (Auto) 0.1 Baso # (Auto) 0.0 Abs Immat Gran (auto) 0.02 Absolute Neuts (auto) 3.7 Absolute Nucleated RBC 0.000 Nucleated RBC % 0.0 Sodium 138 Potassium 3.6 Chloride 110 H Carbon Dioxide 24 Anion Gap 4 BUN 10 D Creatinine 0.60 L Estim Creat Clear Calc 57 Estimated GFR > 60 Glucose 117 H Lactic Acid 1.5 Calcium 10.0 Magnesium 2.1 Total Bilirubin 0.5 AST 67 H ALT 63 H Alkaline Phosphatase 109 Total Protein 7.0 Albumin 3.4 L Hospitalist MIPS Advance Care Plan I have confirmed that the patient's Advanced Care Plan is present, code status is documented, or surrogate decision maker is listed in patient medical record.: Yes Medication Reconciliation I have utilized all available resources to obtain, update and review the patients current medications (includes all prescriptions, OTC, herbals, cannabis, and nutritional supplements).: Yes
--- NOTE | 2024-02-17 10:47 | PCNWS ---
Weekly nutritional screen. Patient is tolerating current heart healthy diet with adequate intake 75-100% of meals. No weight loss reported. No nutritional recommendations at this time.
--- NOTE | 2024-02-17 12:43 | P.PNOP_ITS ---
Subjective Subjective Date/Time Seen: 02/17/24 12:43 Interval history: Patient is alert, pain overall is minimum. She is doing very well with physical therapy she had new onset of AFib this morning with RVR. She is scheduled echocardiogram later today. Care coordination is still working on placement for her she daily. Labs this morning show no changes. Continue to see the patient while she is here. Objective Data Vital Signs Vital Signs: Vital Signs - 24 hr 02/16/24 14:00 02/16/24 20:00 02/16/24 22:00 Temperature 98.2 F 97.6 F Pulse Rate 89 66 Respiratory Rate 16 18 Blood Pressure 149/79 H 151/79 H Pulse Oximetry 99 99 Oxygen Delivery Room Air 02/17/24 05:43 02/17/24 06:00 02/17/24 08:40 Temperature 98.1 F Pulse Rate 133 H 84 Respiratory Rate 18 Blood Pressure 108/81 Pulse Oximetry 97 Oxygen Delivery Room Air Intake/Output Intake/Output: Intake & Output 02/14/24 02/15/24 02/16/24 02/17/24 23:59 23:59 23:59 23:59 Intake Total 7080 920 1280 590 Output Total 800 450 Balance 6280 470 1280 590 Meds/Results Medications: Active Medications Generic Name Dose Route Start Last Admin Trade Name Freq PRN Reason Stop Dose Admin Acetaminophen 650 mg 02/11/24 18:00 02/17/24 12:07 Acetaminophen 325 Mg Tablet PO Not Given Q6H CHEYANNE Al Hydrox/Mg Hydrox/Simethicone 30 ml 02/11/24 02:39 Mag Hydrox/Al Hydrox/Simeth 30 Ml Udc PO Q6H PRN Indigestion Amlodipine Besylate 5 mg 02/11/24 09:00 02/17/24 08:37 Amlodipine Besylate 5 Mg Tablet BY MOUTH 5 mg DAILY CHEYANNE Administration Calcium Carbonate 500 mg 02/12/24 17:00 02/17/24 08:37 Calcium Carbonate (Oscal) 500 Mg Tablet PO 500 mg BIDWM CHEYANNE Administration Enoxaparin Sodium 40 mg 02/11/24 12:55 02/17/24 08:37 Enoxaparin 40 Mg/0.4 Ml Syringe SUB-Q 40 mg DAILY CHEYANNE Administration Ergocalciferol 50,000 units 02/24/24 09:00 Ergocalciferol 50,000 Units Capsule PO WEEKLY CHEYANNE Losartan Potassium 50 mg 02/11/24 09:00 02/17/24 08:37 Losartan Potassium 50 Mg Tablet PO 50 mg DAILY CHEYANNE Administration Miscellaneous Information 1 each 02/17/24 00:01 Ergocalciferol Needs Day Of Week Due XX 03/18/24 00:00 [facility] Oxybutynin Chloride 5 mg 02/11/24 09:00 02/17/24 08:37 Oxybutynin Chloride 5 Mg Tablet PO 5 mg DAILY CHEYANNE Administration Perflutren Lipid Microsphere 0 ml 02/17/24 10:39 Perflutren Lipid Microspheres 1.5 Ml Vial Diluted To 10 Ml Total Volume IV PUSH 02/20/24 10:39 ONCE PRN adequate visualization Protocol Polyethylene Glycol 17 gm 02/11/24 02:39 Polyethylene Glycol 3350 17 Gm Powd.Pack PO QAM PRN Constipation Polyethylene Glycol 17 gm 02/13/24 09:00 02/17/24 08:37 Polyethylene Glycol 3350 17 Gm Powd.Pack PO 17 gm QAM CHEYANNE Administration Senna/Docusate Sodium 2 tab 02/12/24 17:00 02/17/24 08:37 Senna/Docusate Sodium Tablet PO 2 tab BID CHEYANNE Administration Tramadol HCl 50 mg 02/10/24 22:07 02/13/24 13:01 Tramadol Hcl (*Crx) 50 Mg Tablet PO 50 mg Q4H PRN Administration Pain Rated 4-6 Vitamin D 5,000 units 02/12/24 11:15 02/17/24 08:37 Cholecalciferol 5,000 Units Tablet PO 5,000 units DAILY CHEYANNE Administration Radiology Results: ITS Impressions Pelvis CT 02/10/24 14:59 IMPRESSION: 1. Nondisplaced fractures at the right sacral ala, right pubic body and sleeve baster ior lateral aspect of the right inferior pubic ramus. Lumbar Spine CT 02/10/24 15:07 IMPRESSION: 1. Chronic T12 burst fracture. 2. Nondisplaced acute fracture of the right sacral ala. 3. 10 degrees thoracolumbar levocurvature with mild spondylosis. 4. Large sliding-type hiatal hernia. Hip/Pelvis X-Ray 02/11/24 13:14 IMPRESSION: 1. Nondisplaced fracture of right parasymphyseal pubis. The other fractures seen by CT are not visible. 2. Mild osteoarthritis of the hips. Labs Labs: Laboratory Results - last 24 hr 02/17/24 05:30 WBC 6.6 RBC 4.24 Hgb 13.2 Hct 40.1 MCV 94.6 MCH 31.1 MCHC 32.9 RDW 13.8 Plt Count 270 MPV 11.4 H Immature Gran % (Auto) 0.3 Neut % (Auto) 55.5 Lymph % (Auto) 30.4 [place] % (Auto) 11.3 H Eos % (Auto) 2.0 Baso % (Auto) 0.5 Lymph # (Auto) 2.01 [place] # (Auto) 0.8 H Eos # (Auto) 0.1 Baso # (Auto) 0.0 Abs Immat Gran (auto) 0.02 Absolute Neuts (auto) 3.7 Absolute Nucleated RBC 0.000 Nucleated RBC % 0.0 Sodium 138 Potassium 3.6 Chloride 110 H Carbon Dioxide 24 Anion Gap 4 BUN 10 D Creatinine 0.60 L Estim Creat Clear Calc 57 Estimated GFR > 60 Glucose 117 H Lactic Acid 1.5 Calcium 10.0 Magnesium 2.1 Total Bilirubin 0.5 AST 67 H ALT 63 H Alkaline Phosphatase 109 Total Protein 7.0 Albumin 3.4 L
[2024-02-17] MEDS: ACETAMINOPHEN 325 MG TABLET 650 MG PO (18:19)
[2024-02-17] MEDS: [UNRECOGNIZED DRUG - REMARK] 1 EACH XX (18:23)
[2024-02-18] VITALS (8 sets, daily range): BP systolic 124–127; BP diastolic 72–85; PULSE 60–100; RESP 18–20; TEMP 36.4–36.7; O2SAT 97–98
--- NOTE | 2024-02-18 | ECHO_ITS ---
Patient Info Name: Yoanna Parikh Age: 79 years : 1945 Gender: Female Ht: 61 in Wt: 152 lbs BSA: 1.75 m2 HR: 90 bpm BP: 125 / 85 mmHg Technical Quality: Poor Exam Date: 02/18/2024 10:50 AM Exam Location: Echo Lab Patient Status: Inpatient Admit Date: 02/10/2024 Staff Ordering Physician: Og Crandall MD Laboratory Engineer: Sandra Messer RDCS Attending Provider: Yanci Olsen MD Exam Type: CA echo dop color flow w con Study Info Indications - AFIB Complete two-dimensional, color flow and Doppler transthoracic echocardiogram is performed with contrast to opacify the left ventricle and to improve the deliniation of the left ventricle endocardial borders. Contrast/Agitated Saline Contrast/Ag. Saline: Definity Amount: 2.00 ml Existing IV Access: Yes Reason for Poor Study: poor echocardiographic windows Summary 1. Left ventricular chamber dimension is normal. 2. Left ventricular systolic function is normal, estimated at 55-60%. 3. There is mildly increased left ventricular wall thickness. 4. The left ventricular diastolic function is grade I diastolic dysfunction. 5. No significant mid ventricular or LVOT gradient. No SATISH. 6. Left ventricular septal wall motion is normal. 7. Right ventricular chamber dimension is normal. 8. Right ventricular systolic function is normal. 9. No pulmonary hypertension, estimated pulmonary arterial systolic pressure is 34 mmHg. 10. There is mild to moderate pulmonic regurgitation. Left Ventricle Left ventricular chamber dimension is normal. Left ventricular systolic function is normal, estimated at 55-60%. There is mildly increased left ventricular wall thickness. Left ventricular septal wall motion is normal. The left ventricular diastolic function is grade I diastolic dysfunction. No significant mid ventricular or LVOT gradient. No SATISH. Right Ventricle Right ventricular chamber dimension is normal. Right ventricular systolic function is normal. Left Atria Left atrial chamber dimension is normal. Right Atria Right atrial chamber dimension is normal. Aortic Valve The aortic valve is trileaflet. There is mild aortic valve sclerosis. There is no aortic valve stenosis. There is no aortic valve regurgitation. Pulmonic Valve The pulmonic valve is normal. There is no pulmonic valve stenosis. There is mild to moderate pulmonic regurgitation. Mitral Valve The mitral valve has normal leaflets. There is no mitral valve stenosis. There is no mitral valve regurgitation. Tricuspid Valve The tricuspid valve leaflets are normal. There is no significant tricuspid valve stenosis. There is mild tricuspid valve regurgitation. No pulmonary hypertension, estimated pulmonary arterial systolic pressure is 34 mmHg. Pericardium/Pleural The pericardium appears normal. There is no pericardial effusion. Inferior Vena Cava Normal inferior vena cava with >50% collapse upon inspiration consistent with normal right atrial pressure, 3 mmHg. Aorta The aortic root size at the sinus of Valsalva is normal. The prox ascending aorta size is normal. Left Ventricular Outflow Tract Name Value Normal LVOT 2D LVOT Diameter 1.83 cm LVOT Doppler LVOT Peak Velocity 118.10 cm/s LVOT Peak Gradient 4 mmHg LVOT Mean Gradient 3 mmHg LVOT VTI 22.42 cm LVOT VTI/AV VTI Ratio 0.66 LVOT Stroke Volume 58.76 ml LVOT CO 4.77 l/min LVOT CI 2.74 L/min/m2 Pulmonic Valve Name Value Normal RVOT Doppler RVOT Peak Gradient 4 mmHg PV Doppler PV Peak Velocity 101.57 cm/s PV Peak Gradient 4 mmHg PV Regurgitation Doppler [place] Peak End Diastolic Velocity 114.21 cm/s Mitral Valve Name Value Normal MV Doppler MV Decel Stark 396.81 cm/s2 MV PHT 0 s MV Area (PHT) 5.35 cm2 4.00-5.00 MV Diastolic Function MV E Peak Velocity 56.23 cm/s MV A Peak Velocity 71.89 cm/s MV E/A 0.78 MV Decel Time 0 s MV Annular TDI MV Septal e' Velocity 4.63 cm/s >=8.00 MV E/e' (Septal) 12.16 <=8.00 MV Lateral e' Velocity 7.34 cm/s >=10.00 MV E/e' (Lateral) 7.66 <=8.00 MV e' Average 5.98 MV E/e' (Average) 9.91 Tricuspid Valve Name Value Normal TV Regurgitation Doppler TR Peak Velocity 279.44 cm/s TR Peak Gradient 31 mmHg Estimated PAP/RSVP RA Pressure 3 mmHg <=5 PA Systolic Pressure 34 mmHg <36 RV Systolic Pressure 34 mmHg <36 TV Annular TDI TV Lateral Helen s' Velocity 25.94 cm/s 9.50-18.70 Aorta Name Value Normal Ascending Aorta Ao Root Diameter (MM) 2.81 cm Ao Root Diam Index (MM) 1.61 cm/m2 Ao [place] Diameter 2.44 cm 2.30-2.90 Aortic Valve Name Value Normal AV Doppler AV Peak Velocity 168.54 cm/s AV Peak Gradient 9 mmHg AV Mean Gradient 6 mmHg AV VTI 33.87 cm AV Area (Cont Eq VTI) 1.74 cm2 >=3.00 AV Area (Cont Eq [place]) 1.84 cm2 AV V1/V2 Ratio 0.70 AV Regurgitation 2D LVOT Area 2.62 cm2 Ventricles Name Value Normal LV Dimensions 2D/MM IVS Diastolic Thickness (2D) 0.85 cm 0.60-1.00 LVID Diastole (2D) 4.31 cm 3.80-5.20 LVIW Diastolic Thickness (2D) 0.70 cm 0.60-0.90 LVID Systole (2D) 2.74 cm 2.20-3.50 LVOT Diameter 1.83 cm LV Mass (2D Cubed) 101.92 g 67.00-162.00 LV Mass Index (2D Cubed) 0.01 g/cm2 0.00-0.01 Relative Wall Thickness (2D) 0.33 LV Fractional Shortening/Ejection Fraction 2D/MM LV Fractional Shortening (2D) 40 % 27-45 LV EF (2D [place]) 71 % 54-74 LV Diastolic Volume (4C MOD) 92.94 ml LV EF (4C MOD) 53 % LV Diastolic Volume (2C MOD) 78.53 ml LV EF (2C MOD) 49 % LV Diastolic Volume (BP MOD) 89.17 ml 46.00-106.00 LV Diastolic Volume Index (BP MOD) 0.05 l/m2 0.03-0.06 LV Systolic Volume (BP MOD) 43.00 ml 14.00-42.00 LV Systolic Volume Index (BP MOD) 0.02 l/m2 0.01-0.02 LV EF (BP MOD) 52 % 54-74 LV Diastolic Length (4C) 7.48 cm LV Systolic Length (4C) 6.94 cm LV Stroke Volume (4C MOD) 48.97 ml Atria Name Value Normal LA Dimensions LA Dimension (MM) 2.22 cm 2.70-3.80 LA Volume (4C A-L) 37.70 ml LA Volume (BP A-L) 37.26 ml RA Dimensions RA Area (4C) 18.48 cm2 <=18.00 Report Signatures
[2024-02-18 08:12] LABS: Hematocrit 39.4 % (37.0-47.0); Hemoglobin 12.8 g/dL (12.0-15.0); Mean Corpuscular HGB Conc 32.5 g/dl (32-36); Mean Corpuscular Hemoglobin 30.5 pg (26-34); Mean Corpuscular Volume 93.8 fl (80-100); Mean Platelet Volume 11.2 fl (7.4-10.4); Platelet Count Result 283 k/mm3 (150-375); Red Cell Distribution Width 13.8 % (11.5-14.5); White Blood Count 5.7 K/mm3 (4.5-10.0)
--- NOTE | 2024-02-18 08:29 | PM.PNORT ---
Subjective Subjective Date/Time Seen: 02/18/24 08:29 Interval history: Patient is comfortable this morning. She is having no real pain. Echocardiogram is still pending. Patient at this point is in sinus rhythm. Care coordination is still working on rehab placement. Instructions are all done in patient's discharge orders. Objective Data Vital Signs Vital Signs: Vital Signs - 24 hr 02/17/24 08:40 02/17/24 12:03 02/17/24 14:00 Temperature 97.6 F Pulse Rate 78 92 Respiratory Rate 16 Blood Pressure 111/67 Pulse Oximetry 99 Oxygen Delivery Room Air 02/17/24 16:03 02/17/24 20:00 02/17/24 20:00 Temperature Pulse Rate 87 82 Respiratory Rate Blood Pressure Pulse Oximetry Oxygen Delivery Room Air 02/17/24 20:12 02/18/24 00:00 02/18/24 05:55 Temperature 97.5 F L 98 F Pulse Rate 63 60 90 Respiratory Rate 16 18 Blood Pressure 115/67 125/85 Pulse Oximetry 96 97 Oxygen Delivery Intake/Output Intake/Output: Intake & Output 02/15/24 02/16/24 02/17/24 02/18/24 23:59 23:59 23:59 23:59 Intake Total 920 1280 950 200 Output Total 450 Balance 470 1280 950 200 Meds/Results Medications: Active Medications Generic Name Dose Route Start Last Admin Trade Name Freq PRN Reason Stop Dose Admin Acetaminophen 650 mg 02/11/24 18:00 02/18/24 06:00 Acetaminophen 325 Mg Tablet PO Not Given Q6H CHEYANNE Al Hydrox/Mg Hydrox/Simethicone 30 ml 02/11/24 02:39 Mag Hydrox/Al Hydrox/Simeth 30 Ml Udc PO Q6H PRN Indigestion Amlodipine Besylate 5 mg 02/11/24 09:00 02/17/24 08:37 Amlodipine Besylate 5 Mg Tablet BY MOUTH 5 mg DAILY CHEYANNE Administration Calcium Carbonate 500 mg 02/12/24 17:00 02/17/24 18:19 Calcium Carbonate (Oscal) 500 Mg Tablet PO 500 mg BIDWM CHEYANNE Administration Enoxaparin Sodium 40 mg 02/11/24 12:55 02/17/24 08:37 Enoxaparin 40 Mg/0.4 Ml Syringe SUB-Q 40 mg DAILY CHEYANNE Administration Ergocalciferol 50,000 units 02/19/24 09:00 Ergocalciferol 50,000 Units Capsule PO Sa@0900 CHEYANNE Losartan Potassium 50 mg 02/11/24 09:00 02/17/24 08:37 Losartan Potassium 50 Mg Tablet PO 50 mg DAILY CHEYANNE Administration Oxybutynin Chloride 5 mg 02/11/24 09:00 02/17/24 08:37 Oxybutynin Chloride 5 Mg Tablet PO 5 mg DAILY CHEYANNE Administration Perflutren Lipid Microsphere 0 ml 02/17/24 10:39 Perflutren Lipid Microspheres 1.5 Ml Vial Diluted To 10 Ml Total Volume IV PUSH 02/20/24 10:39 ONCE PRN adequate visualization Protocol Polyethylene Glycol 17 gm 02/11/24 02:39 Polyethylene Glycol 3350 17 Gm Powd.Pack PO QAM PRN Constipation Polyethylene Glycol 17 gm 02/13/24 09:00 02/17/24 08:37 Polyethylene Glycol 3350 17 Gm Powd.Pack PO 17 gm QAM CHEYANNE Administration Senna/Docusate Sodium 2 tab 02/12/24 17:00 02/17/24 18:19 Senna/Docusate Sodium Tablet PO 2 tab BID CHEYANNE Administration Tramadol HCl 50 mg 02/10/24 22:07 02/13/24 13:01 Tramadol Hcl (*Crx) 50 Mg Tablet PO 50 mg Q4H PRN Administration Pain Rated 4-6 Vitamin D 5,000 units 02/12/24 11:15 02/17/24 08:37 Cholecalciferol 5,000 Units Tablet PO 5,000 units DAILY CHEYANNE Administration Radiology Results: ITS Impressions Pelvis CT 02/10/24 14:59 IMPRESSION: 1. Nondisplaced fractures at the right sacral ala, right pubic body and posterior lateral aspect of the right inferior pubic ramus. Lumbar Spine CT 02/10/24 15:07 IMPRESSION: 1. Chronic T12 burst fracture. 2. Nondisplaced acute fracture of the right sacral ala. 3. 10 degrees thoracolumbar levocurvature with mild spondylosis. 4. Large sliding-type hiatal hernia. Hip/Pelvis X-Ray 02/11/24 13:14 IMPRESSION: 1. Nondisplaced fracture of right parasymphyseal pubis. The other fractures seen by CT are not visible. 2. Mild osteoarthritis of the hips. Labs Labs: Laboratory Results - last 24 hr 02/18/24 07:42 WBC 5.7 RBC 4.20 Hgb 12.8 Hct 39.4 MCV 93.8 MCH 30.5 MCHC 32.5 RDW 13.8 Plt Count 283 MPV 11.2 H
[2024-02-18 08:34] LABS: Alanine Aminotransferase 59 U/L (6-35); Albumin Level 3.3 g/dL (3.5-5.1); Alkaline Phosphatase 119 U/L (38-126); Anion Gap 1 mmol/L (4-12); Aspartate Amino Transferase 49 U/L (14-36); Bilirubin,Total 0.6 mg/dL (0.2-1.3); Blood Urea Nitrogen 13 mg/dL (7-17); Calcium 10.7 mg/dL (8.4-10.2); Carbon Dioxide 29 mmol/L (22-30); Chloride 108 mmol/L (98-107); Estimated CRCL calculation 50 ml/min; Estimated Glomerular Filt Rate > 60; Glucose 101 mg/dL (65-110); Magnesium 2.2 mg/dL (1.6-2.3); Phosphorus 3.6 mg/dL (2.5-4.5); Potassium 3.7 mmol/L (3.4-5.0); Sodium 138 mmol/L (137-145)
[2024-02-18] MEDS: oxyBUTYnin CHLORIDE 5 MG TABLET PO (09:01)
[2024-02-18] MEDS: CHOLECALCIFEROL 5,000 UNITS TABLET 5000 UNITS PO (09:02)
[2024-02-18] MEDS: CALCIUM CARBONATE (OSCAL) 500 MG TABLET PO ×2 (09:02→17:24)
[2024-02-18] MEDS: LOSARTAN POTASSIUM 50 MG TABLET PO (09:02)
[2024-02-18] MEDS: amLODIPine BESYLATE 5 MG TABLET BY MOUTH (09:02)
[2024-02-18] MEDS: SENNA/DOCUSATE SODIUM TABLET 2 TAB PO (09:02)
[2024-02-18] MEDS: ENOXAPARIN 40 MG/0.4 ML SYRINGE SUB-Q (09:04)
[2024-02-18] MEDS: PERFLUTREN LIPID MICROSPHERES 1.5 ML VIAL DILUTED TO 10 ML TOTAL VOLUME IV PUSH (11:28)
[2024-02-18] MEDS: dilTIAZem HCL CD 180 MG CAP.24HR PO (12:40)
--- NOTE | 2024-02-18 13:59 | IVDEFINITY ---
Prior to administration of IV Definity the patient was educated on the risks and benefits of the imaging enhancing agent including potential adverse side effects. The patient verbalized understanding. Allergies were verified. No exclusion criteria were identified and at least one of the following inclusion criteria were met: 1) physician request, 2) patient technically difficult to image (per the [place] [employer] guidelines of two or more segments not discernable within the apical view), or 3) questionable left ventricular function. ?
--- NOTE | 2024-02-18 14:01 | PM.IMPN ---
Progress Note: A&P Assessment and Plan (1) Unable to ambulate: Code(s): R26.2 - Difficulty in walking, not elsewhere classified Status: Acute Assessment and Plan: PT/OT monitor (2) Fall from ground level: Code(s): W18.30XA - Fall on same level, unspecified, initial encounter Status: Acute Assessment and Plan: Mechanical fall (3) Multiple pelvic fractures: Qualifiers: Encounter type: initial encounter Fracture alignment: without disruption of pelvic ring Fracture type: closed Qualified Code(s): S32.82XA - Multiple fractures of pelvis without disruption of pelvic ring, initial encounter for closed fracture Code(s): S32.82XA - Multiple fractures of pelvis without disruption of pelvic ring, initial encounter for closed fracture Status: Acute Assessment and Plan: Conservative management PRN pain control awating Placement Ortho following (4) Osteoporosis: Code(s): M81.0 - Age-related osteoporosis without current pathological fracture Status: Acute Assessment and Plan: Follow-up in outpatient setting (5) Gastroesophageal reflux disease: Code(s): K21.9 - Gastro-esophageal reflux disease without esophagitis Status: Acute Assessment and Plan: PPI (6) Essential (primary) hypertension: Code(s): I10 - Essential (primary) hypertension Status: Acute Assessment and Plan: Continue losartan and amlodipine (7) New onset atrial fibrillation: Code(s): I48.91 - Unspecified atrial fibrillation Status: Acute Assessment and Plan: Given Cardizem 20 mg IV 1 time Started diltiazem 180 mg p.o. q.d. Started Eliquis 5 mg p.o. b.i.d. Echo pending Miguelito Vasc of 4 Cardiology consult and appreciate recommendation Plan DVT prophylaxis Eliquis 5 mg p.o. b.i.d. Full code Waiting for placement. Subjective Date/time seen: 02/18/24 14:01 Interval history: Discussed with the patient about starting Eliquis. Patient agrees to starting the Eliquis 5 mg p.o. b.i.d.. Patient had 2 falls this year. Talked about benefit versus risk. Patient also spoke to Cardiology. Floral Assistant spoke to me after talking to the patient and agrees with starting Eliquis 5 mg p.o. b.i.d.. Patient is also started on diltiazem 180 mg p.o. q.d. Review of Systems Review of Systems: fall, pain with ambulation Exam Narrative: Laying in bed Const: General: comfortable, no acute distress, well developed, alert, awake and average body habitus Nutritional Appearance: average body habitus Orientation/consciousness: patient oriented x3 HENMT: Head: normal to inspection, normocephalic and atraumatic Ears: hearing grossly normal bilaterally Face/Nose/Sinus: normal facial exam Face and sinus: normal facial exam Eyes: General: appearance normal, both eyes and all related structures Pupils: Equal, round and reactive pupils present EOM: EOMs intact bilaterally Neck: Neck: full ROM, no lymphadenopathy and no JVD Thyroid: thyroid normal Lymphatic: no lymphadenopathy noted Resp: Effort & Inspection: normal respiratory effort and able to speak in complete sentences Auscultation: clear to auscultation bilaterally Cardio: Jugular venous distension: no JVD Rate: regular rate Rhythm: regular rhythm Heart sounds: S1 normal heart sound present and S2 normal heart sound present : General: Yes deferred Skin: Rashes: no rashes Wounds: no wounds Neuro: General: patient oriented x3, CN's II-XI intact bilaterally and Unable to assess gait Cranial nerves: Yes CN's II-XII intact bilaterally and Yes Equal, round and reactive pupils present Cognition (Neuro): normal cognition Speech: normal speech Gait exam (Neuro): Unable to assess gait Motor exam (neuro): 5/5 motor strength present throughout Extrem: General: normal to inspection, full ROM, no joint enlargement and no pedal edema Objective Data Vital Signs Vital Signs: Vital Signs - 24 hr 02/17/24 16:03 02/17/24 20:00 02/17/24 20:00 Temperature Pulse Rate 87 82 Respiratory Rate Blood Pressure Pulse Oximetry Oxygen Delivery Room Air 02/17/24 20:12 02/18/24 00:00 02/18/24 05:55 Temperature 97.5 F L 98 F Pulse Rate 63 60 90 Respiratory Rate 16 18 Blood Pressure 115/67 125/85 Pulse Oximetry 96 97 Oxygen Delivery 02/18/24 08:03 Temperature Pulse Rate 100 Respiratory Rate Blood Pressure Pulse Oximetry Oxygen Delivery Intake/Output Intake/Output: Intake & Output 02/15/24 02/16/24 02/17/24 02/18/24 23:59 23:59 23:59 23:59 Intake Total 920 1280 950 580 Output Total 450 Balance 470 1280 950 580 Meds/Results Medications: Active Medications Generic Name Dose Route Start Last Admin Trade Name Freq PRN Reason Stop Dose Admin Acetaminophen 650 mg 02/11/24 18:00 02/18/24 12:40 Acetaminophen 325 Mg Tablet PO Not Given Q6H CHEYANNE Al Hydrox/Mg Hydrox/Simethicone 30 ml 02/11/24 02:39 Mag Hydrox/Al Hydrox/Simeth 30 Ml Udc PO Q6H PRN Indigestion Calcium Carbonate 500 mg 02/12/24 17:00 02/18/24 09:02 Calcium Carbonate (Oscal) 500 Mg Tablet PO 500 mg BIDWM CHEYANNE Administration Diltiazem HCl 180 mg 02/18/24 12:30 02/18/24 12:40 Diltiazem Hcl Cd 180 Mg Cap.24hr PO 180 mg QAM CHEYANNE Administration Ergocalciferol 50,000 units 02/19/24 09:00 Ergocalciferol 50,000 Units Capsule PO Sa@0900 CHEYANNE Oxybutynin Chloride 5 mg 02/11/24 09:00 02/18/24 09:01 Oxybutynin Chloride 5 Mg Tablet PO 5 mg DAILY CHEYANNE Administration Perflutren Lipid Microsphere 0 ml 02/17/24 10:39 02/18/24 11:28 Perflutren Lipid Microspheres 1.5 Ml Vial Diluted To 10 Ml Total Volume IV PUSH 02/20/24 10:39 2 ml ONCE PRN Administration adequate visualization Protocol Polyethylene Glycol 17 gm 02/11/24 02:39 Polyethylene Glycol 3350 17 Gm Powd.Pack PO QAM PRN Constipation Polyethylene Glycol 17 gm 02/13/24 09:00 02/18/24 09:03 Polyethylene Glycol 3350 17 Gm Powd.Pack PO Not Given QAM CHEYANNE Senna/Docusate Sodium 2 tab 02/12/24 17:00 02/18/24 09:02 Senna/Docusate Sodium Tablet PO 2 tab BID CHEYANNE Administration Tramadol HCl 50 mg 02/10/24 22:07 02/13/24 13:01 Tramadol Hcl (*Crx) 50 Mg Tablet PO 50 mg Q4H PRN Administration Pain Rated 4-6 Vitamin D 5,000 units 02/12/24 11:15 02/18/24 09:02 Cholecalciferol 5,000 Units Tablet PO 5,000 units DAILY CHEYANNE Administration Radiology Results: ITS Impressions Pelvis CT 02/10/24 14:59 IMPRESSION: 1. Nondisplaced fractures at the right sacral ala, right pubic body and posterior lateral aspect of the right inferior pubic ramus. Lumbar Spine CT 02/10/24 15:07 IMPRESSION: 1. Chronic T12 burst fracture. 2. Nondisplaced acute fracture of the right sacral ala. 3. 10 degrees thoracolumbar levocurvature with mild spondylosis. 4. Large sliding-type hiatal hernia. Hip/Pelvis X-Ray 02/11/24 13:14 IMPRESSION: 1. Nondisplaced fracture of right parasymphyseal pubis. The other fractures seen by CT are not visible. 2. Mild osteoarthritis of the hips. Labs Labs: Laboratory Results - last 24 hr 02/18/24 07:42 WBC 5.7 RBC 4.20 Hgb 12.8 Hct 39.4 MCV 93.8 MCH 30.5 MCHC 32.5 RDW 13.8 Plt Count 283 MPV 11.2 H Sodium 138 Potassium 3.7 Chloride 108 H Carbon Dioxide 29 Anion Gap 1 L BUN 13 Creatinine 0.70 Estim Creat Clear Calc 50 Estimated GFR > 60 Glucose 101 Calcium 10.7 H Phosphorus 3.6 Magnesium 2.2 Total Bilirubin 0.6 AST 49 H ALT 59 H Alkaline Phosphatase 119 Total Protein 7.0 Albumin 3.3 L Hospitalist MIPS Advance Care Plan I have confirmed that the patient's Advanced Care Plan is present, code status is documented, or surrogate decision maker is listed in patient medical record.: Yes Medication Reconciliation I have utilized all available resources to obtain, update and review the patients current medications (includes all prescriptions, OTC, herbals, cannabis, and nutritional supplements).: Yes
--- NOTE | 2024-02-18 17:43 | P.CONCA_ITS ---
Assessment and Plan Assessment and plan (1) New onset atrial fibrillation: Code(s): I48.91 - Unspecified atrial fibrillation Status: Acute Plan 1. Paroxysmal AFib Chads Vasc 4 Has bled 1 2. Hypertension 3. Osteoporosis -transition to oral diltiazem -discussed with her risks, benefits, alternatives. Of anticoagulation will recommend apixaban 5 mg twice daily. She agreed for anticoagulation after discussion and understood the risk of anticoagulation as well -cardiology will sign off, please call us if there are any questions or concerns -cardiology clinic follow-up as an outpatient History of Present Illness History of Present Illness Consult date/time: 02/18/24 17:43 Reason For Visit: Multiple pelvic fractions, unable to ambulate Narrative: This is a 79-year-old female with past medical history significant for hypertension, chronic back pain, osteoporosis,who was admitted with multiple pelvic fractures. Cardiology consulted for new onset atrial fibrillation She denies any chest pain, dyspnea, presyncope syncope, palpitation or dizziness No bleeding from any source She did have 2 mechanical falls in last year Review of Systems 2 Review of Systems: fall, pain with ambulation All systems reviewed & are unremarkable except as noted in HPI and below PMFSH Past Medical History Medical History Prediabetes Acne rosacea Chronic left-sided low back pain without sciatica Closed burst fracture of thoracic vertebra Essential (primary) hypertension FH: brain aneurysm Gastroesophageal reflux disease Mixed hyperlipidemia Postmenopausal osteoporosis Primary hyperparathyroidism Vitamin B12 deficiency Vitamin D deficiency Family History Family History Mother Hypertension Father Hypertension Other Family history of cardiovascular disease Family history of chronic obstructive pulmonary disease Family history of thyroid disease Social History Social History Smoking status: Never smoker Second hand tobacco smoke exposure: No Alcohol intake: never Substance use: never Substance use type: does not use Do You Feel Safe in your Home?: Yes Lack of Transportation: No Lack of Food: Never True Current Housing: I Have Housing Concerned About Future Housing: No Difficulty Paying Gas/Electric Bills: No Difficulty Paying for Meds: No Currently Unemployed: No Education: Master's Degree or Higher Difficulty w/ Childcare or Family Care: No Living arrangements: with family Occupation/Education: retired Gender identity (if verbalized by the patient): Female Spiritual care concerns: No Agree to blood products: Yes Meds Home Medications and Allergies Home Medications ?Medication ?Instructions ?Recorded ?Confirmed ?Type amlodipine 5 mg tablet See Rx Instructions .Route 06/17/23 02/10/24 Rx .COMPLEX #90 tabs losartan 50 mg tablet 50 mg PO DAILY #90 tabs 09/17/23 02/10/24 Rx oxybutynin chloride 5 mg tablet 5 mg PO DAILY #30 tabs 11/29/23 02/10/24 Rx pantoprazole 40 mg tablet,delayed 40 mg PO QHS #90 tabs 01/10/24 02/10/24 Rx release (Protonix) Allergies Allergy/AdvReac Type Severity Reaction Status Date / Time No Known Allergies Allergy Verified 02/11/24 00:41 Vital Signs Vital Signs - 24 hr 02/17/24 20:00 02/17/24 20:00 02/17/24 20:12 Temperature 36.4 C L Pulse Rate 82 63 Respiratory Rate 16 Blood Pressure 115/67 Pulse Oximetry 96 Oxygen Delivery Room Air 02/18/24 00:00 02/18/24 05:55 02/18/24 08:00 Temperature 36.6 C Pulse Rate 60 90 Respiratory Rate 18 Blood Pressure 125/85 Pulse Oximetry 97 Oxygen Delivery Room Air 02/18/24 08:03 02/18/24 14:00 Temperature 36.7 C Pulse Rate 100 98 Respiratory Rate 18 Blood Pressure 127/81 Pulse Oximetry 97 Oxygen Delivery Exam 2 Narrative: Laying in bed Const: General: comfortable, no acute distress, well developed, alert, awake and average body habitus Nutritional Appearance: average body habitus O rientation/consciousness: patient oriented x3 HENMT: Head: normal to inspection, normocephalic and atraumatic Ears: h earing grossly normal bilaterally Face/Nose/Sinus: normal facial exam Face and sinus: normal facial exam Eyes: General: appearance normal, both eyes and all related structures P upils: Equal, round and reactive pupils present EOM: EOMs intact bilaterally Neck: Neck: full ROM, no lymphadenopathy and no JVD Thyroid: thyroid normal Lymphatic: no lymphadenopathy noted Resp: Effort & Inspection: normal respiratory effort and able to speak in complete sentences Auscultation: clear to auscultation bilaterally Cardio: Jugular venous distension: no JVD Rate: regular rate Rhythm: r egular rhythm Heart sounds: S1 normal heart sound present and S2 normal heart sound present : General: Yes deferred Skin: Rashes: no rashes Wounds: no wounds Neuro: General: patient oriented x3, CN's II-XI intact bilaterally and Unable to assess gait Cranial nerves: Yes CN's II-XII intact bilaterally and Yes Equal, round and reactive pupils present Cognition (Neuro): normal cognition Speech: normal speech Gait exam (Neuro): Unable to assess gait Motor exam (neuro): 5/5 motor strength present throughout Extrem: General: normal to inspection, full ROM, no joint enlargement and no pedal edema Results Labs and Meds 02/18/24 07:42 02/18/24 07:42 Lab results: Cardiac Enzymes 02/18/24 Range/Units 07:42 AST 49 H (14-36) U/L CBC 02/18/24 Range/Units 07:42 WBC 5.7 (4.5-10.0) K/mm3 RBC 4.20 (4.2-5.4) M/mm3 Hgb 12.8 (12.0-15.0) g/dL Hct 39.4 (37.0-47.0) % Plt Count 283 (150-375) k/mm3 Comprehensive Metabolic Panel 02/18/24 Range/Units 07:42 Sodium 138 (137-145) mmol/L Potassium 3.7 (3.4-5.0) mmol/L Chloride 108 H (98-107) mmol/L Carbon Dioxide 29 (22-30) mmol/L BUN 13 (7-17) mg/dL Creatinine 0.70 (0.7-1.0) mg/dL Glucose 101 (65-110) mg/dL Calcium 10.7 H (8.4-10.2) mg/dL AST 49 H (14-36) U/L ALT 59 H (6-35) U/L Alkaline Phosphatase 119 (38-126) U/L Total Protein 7.0 (6.3-8.2) g/dL Albumin 3.3 L (3.5-5.1) g/dL Intake and Output 02/18/24 02/18/24 02/18/24 07:59 15:59 23:59 Intake Total 200 620 Balance 200 620 Intake: Oral 200 620 Other: # Unmeasured Voids 3
[2024-02-18] MEDS: APIXABAN 5 MG TABLET PO (22:02)
[2024-02-19] VITALS (10 sets, daily range): BP systolic 113–127; BP diastolic 70–76; PULSE 58–82; RESP 17–18; TEMP 36.7–36.8; O2SAT 93–95
[2024-02-19 07:35] LABS: Hematocrit 36.1 % (37.0-47.0); Hemoglobin 11.8 g/dL (12.0-15.0); Mean Corpuscular HGB Conc 32.7 g/dl (32-36); Mean Corpuscular Hemoglobin 30.8 pg (26-34); Mean Corpuscular Volume 94.3 fl (80-100); Mean Platelet Volume 11.2 fl (7.4-10.4); Platelet Count Result 279 k/mm3 (150-375); Red Blood Count 3.83 M/mm3 (4.2-5.4); Red Cell Distribution Width 13.7 % (11.5-14.5); White Blood Count 6.3 K/mm3 (4.5-10.0)
[2024-02-19 07:47] LABS: Alanine Aminotransferase 46 U/L (6-35); Albumin Level 3.3 g/dL (3.5-5.1); Alkaline Phosphatase 114 U/L (38-126); Anion Gap 1 mmol/L (4-12); Aspartate Amino Transferase 34 U/L (14-36); Bilirubin,Total 0.5 mg/dL (0.2-1.3); Blood Urea Nitrogen 12 mg/dL (7-17); Calcium 9.9 mg/dL (8.4-10.2); Carbon Dioxide 27 mmol/L (22-30); Chloride 109 mmol/L (98-107); Estimated CRCL calculation 50 ml/min; Estimated Glomerular Filt Rate > 60; Glucose 100 mg/dL (65-110); Potassium 3.7 mmol/L (3.4-5.0); Sodium 137 mmol/L (137-145)
[2024-02-19] MEDS: CALCIUM CARBONATE (OSCAL) 500 MG TABLET PO ×2 (08:20→16:18)
[2024-02-19] MEDS: dilTIAZem HCL CD 180 MG CAP.24HR PO (08:20)
[2024-02-19] MEDS: CHOLECALCIFEROL 5,000 UNITS TABLET 5000 UNITS PO (08:20)
[2024-02-19] MEDS: APIXABAN 5 MG TABLET PO ×2 (08:20→20:48)
[2024-02-19] MEDS: oxyBUTYnin CHLORIDE 5 MG TABLET PO (08:20)
[2024-02-19] MEDS: ERGOCALCIFEROL 50,000 UNITS CAPSULE 50000 UNITS PO (08:23)
--- NOTE | 2024-02-19 15:49 | PM.IMPN ---
Progress Note: A&P Assessment and Plan (1) Unable to ambulate: Code(s): R26.2 - Difficulty in walking, not elsewhere classified Status: Acute Assessment and Plan: PT/OT monitor (2) Fall from ground level: Code(s): W18.30XA - Fall on same level, unspecified, initial encounter Status: Acute Assessment and Plan: Mechanical fall (3) Multiple pelvic fractures: Qualifiers: Encounter type: initial encounter Fracture alignment: without disruption of pelvic ring Fracture type: closed Qualified Code(s): S32.82XA - Multiple fractures of pelvis without disruption of pelvic ring, initial encounter for closed fracture Code(s): S32.82XA - Multiple fractures of pelvis without disruption of pelvic ring, initial encounter for closed fracture Status: Acute Assessment and Plan: Conservative management PRN pain control awating Placement Ortho following (4) Osteoporosis: Code(s): M81.0 - Age-related osteoporosis without current pathological fracture Status: Acute Assessment and Plan: Follow-up in outpatient setting (5) Gastroesophageal reflux disease: Code(s): K21.9 - Gastro-esophageal reflux disease without esophagitis Status: Acute Assessment and Plan: PPI (6) Essential (primary) hypertension: Code(s): I10 - Essential (primary) hypertension Status: Acute Assessment and Plan: Continue losartan and amlodipine (7) New onset atrial fibrillation: Code(s): I48.91 - Unspecified atrial fibrillation Status: Acute Assessment and Plan: Given Cardizem 20 mg IV 1 time Started diltiazem 180 mg p.o. q.d. Started Eliquis 5 mg p.o. b.i.d. Echo pending Miguelito Vasc of 4 Cardiology consult and appreciate recommendation Plan DVT prophylaxis Eliquis 5 mg p.o. b.i.d. Full code Waiting for placement. Subjective Date/time seen: 02/19/24 15:49 Interval history: Advised to monitor her hemoglobin since patient started on Eliquis 5 mg p.o. b.i.d. for new onset of atrial fibrillation. Patient understands the pros and cons of anticoagulation. Pending placement Review of Systems Review of Systems: fall, pain with ambulation Exam Narrative: Laying in bed Const: General: comfortable, no acute distress, well developed, alert, awake and average body habitus Nutritional Appearance: average body habitus Orientation/consciousness: patient oriented x3 HENMT: Head: normal to inspection, normocephalic and atraumatic Ears: hearing grossly normal bilaterally Face/Nose/Sinus: normal facial exam Face and sinus: normal facial exam Eyes: General: appearance normal, both eyes and all related structures Pupils: Equal, round and reactive pupils present EOM: EOMs intact bilaterally Neck: Neck: full ROM, no lymphadenopathy and no JVD Thyroid: thyroid normal Lymphatic: no lymphadenopathy noted Resp: Effort & Inspection: normal respiratory effort and able to speak in complete sentences Auscultation: clear to auscultation bilaterally Cardio: Jugular venous distension: no JVD Rate: regular rate Rhythm: regular rhythm Heart sounds: S1 normal heart sound present and S2 normal heart sound present : General: Yes deferred Skin: Rashes: no rashes Wounds: no wounds Neuro: General: patient oriented x3, CN's II-XI intact bilaterally and Unable to assess gait Cranial nerves: Yes CN's II-XII intact bilaterally and Yes Equal, round and reactive pupils present Cognition (Neuro): normal cognition Speech: normal speech Gait exam (Neuro): Unable to assess gait Motor exam (neuro): 5/5 motor strength present throughout Extrem: General: normal to inspection, full ROM, no joint enlargement and no pedal edema Objective Data Vital Signs Vital Signs: Vital Signs - 24 hr 02/18/24 16:00 02/18/24 20:00 02/18/24 21:32 Temperature 97.5 F L Pulse Rate 94 80 73 Respiratory Rate 20 Blood Pressure 124/72 Pulse Oximetry 98 Oxygen Delivery 02/18/24 21:50 02/19/24 00:00 02/19/24 04:00 Temperature Pulse Rate 58 L 59 L Respiratory Rate Blood Pressure Pulse Oximetry Oxygen Delivery Room Air 02/19/24 06:00 02/19/24 08:00 02/19/24 08:02 Temperature 98.3 F Pulse Rate 63 64 Respiratory Rate 18 Blood Pressure 127/76 Pulse Oximetry 93 Oxygen Delivery Room Air 02/19/24 14:19 Temperature 98.0 F Pulse Rate 76 Respiratory Rate 17 Blood Pressure 113/70 Pulse Oximetry 95 Oxygen Delivery Intake/Output Intake/Output: Intake & Output 02/16/24 02/17/24 02/18/24 02/19/24 23:59 23:59 23:59 23:59 Intake Total 0256 924 9116 490 Balance 3372 204 6416 490 Meds/Results Medications: Active Medications Generic Name Dose Route Start Last Admin Trade Name Freq PRN Reason Stop Dose Admin Acetaminophen 650 mg 02/11/24 18:00 02/19/24 12:52 Acetaminophen 325 Mg Tablet PO Not Given Q6H CHEYANNE Al Hydrox/Mg Hydrox/Simethicone 30 ml 02/11/24 02:39 Mag Hydrox/Al Hydrox/Simeth 30 Ml Udc PO Q6H PRN Indigestion Apixaban 5 mg 02/18/24 21:00 02/19/24 08:20 Apixaban 5 Mg Tablet PO 5 mg Q12HR CHEYANNE Administration Calcium Carbonate 500 mg 02/12/24 17:00 02/19/24 08:20 Calcium Carbonate (Oscal) 500 Mg Tablet PO 500 mg BIDWM CHEYANNE Administration Diltiazem HCl 180 mg 02/18/24 12:30 02/19/24 08:20 Diltiazem Hcl Cd 180 Mg Cap.24hr PO 180 mg QAM CHEYANNE Administration Ergocalciferol 50,000 units 02/19/24 09:00 02/19/24 08:23 Ergocalciferol 50,000 Units Capsule PO 50,000 units Sa@0900 CHEYANNE Administration Oxybutynin Chloride 5 mg 02/11/24 09:00 02/19/24 08:20 Oxybutynin Chloride 5 Mg Tablet PO 5 mg DAILY CHEYANNE Administration Polyethylene Glycol 17 gm 02/11/24 02:39 Polyethylene Glycol 3350 17 Gm Powd.Pack PO QAM PRN Constipation Polyethylene Glycol 17 gm 02/13/24 09:00 02/19/24 08:21 Polyethylene Glycol 3350 17 Gm Powd.Pack PO Not Given QAM CHEYANNE Senna/Docusate Sodium 2 tab 02/12/24 17:00 02/19/24 08:20 Senna/Docusate Sodium Tablet PO Not Given BID CHEYANNE Tramadol HCl 50 mg 02/10/24 22:07 02/13/24 13:01 Tramadol Hcl (*Crx) 50 Mg Tablet PO 50 mg Q4H PRN Administration Pain Rated 4-6 Vitamin D 5,000 units 02/12/24 11:15 02/19/24 08:20 Cholecalciferol 5,000 Units Tablet PO 5,000 units DAILY CHEYANNE Administration Radiology Results: ITS Impressions Pelvis CT 02/10/24 14:59 IMPRESSION: 1. Nondisplaced fractures at the right sacral ala, right pubic body and posterior lateral aspect of the right inferior pubic ramus. Lumbar Spine CT 02/10/24 15:07 IMPRESSION: 1. Chronic T12 burst fracture. 2. Nondisplaced acute fracture of the right sacral ala. 3. 10 degrees thoracolumbar levocurvature with mild spondylosis. 4. Large sliding-type hiatal hernia. Hip/Pelvis X-Ray 02/11/24 13:14 IMPRESSION: 1. Nondisplaced fracture of right parasymphyseal pubis. The other fractures seen by CT are not visible. 2. Mild osteoarthritis of the hips. Labs Labs: Laboratory Results - last 24 hr 02/19/24 06:59 WBC 6.3 RBC 3.83 L Hgb 11.8 L Hct 36.1 L MCV 94.3 MCH 30.8 MCHC 32.7 RDW 13.7 Plt Count 279 MPV 11.2 H Sodium 137 Potassium 3.7 Chloride 109 H Carbon Dioxide 27 Anion Gap 1 L BUN 12 Creatinine 0.70 Estim Creat Clear Calc 50 Estimated GFR > 60 Glucose 100 Calcium 9.9 Total Bilirubin 0.5 AST 34 ALT 46 H Alkaline Phosphatase 114 Total Protein 7.0 Albumin 3.3 L Hospitalist MIPS Advance Care Plan I have confirmed that the patient's Advanced Care Plan is present, code status is documented, or surrogate decision maker is listed in patient medical record.: Yes Medication Reconciliation I have utilized all available resources to obtain, update and review the patients current medications (includes all prescriptions, OTC, herbals, cannabis, and nutritional supplements).: Yes
[2024-02-20] VITALS (10 sets, daily range): BP systolic 113–131; BP diastolic 73–89; PULSE 54–74; RESP 14–16; TEMP 36.2–37; O2SAT 94–98
--- NOTE | 2024-02-20 08:29 | PM.IMPN ---
Progress Note: A&P Assessment and Plan (1) Unable to ambulate: Code(s): R26.2 - Difficulty in walking, not elsewhere classified Status: Acute Assessment and Plan: PT/OT monitor (2) Fall from ground level: Code(s): W18.30XA - Fall on same level, unspecified, initial encounter Status: Acute Assessment and Plan: Mechanical fall (3) Multiple pelvic fractures: Qualifiers: Encounter type: initial encounter Fracture alignment: without disruption of pelvic ring Fracture type: closed Qualified Code(s): S32.82XA - Multiple fractures of pelvis without disruption of pelvic ring, initial encounter for closed fracture Code(s): S32.82XA - Multiple fractures of pelvis without disruption of pelvic ring, initial encounter for closed fracture Status: Acute Assessment and Plan: Conservative management PRN pain control awating Placement Ortho following (4) Osteoporosis: Code(s): M81.0 - Age-related osteoporosis without current pathological fracture Status: Acute Assessment and Plan: Follow-up in outpatient setting (5) Gastroesophageal reflux disease: Code(s): K21.9 - Gastro-esophageal reflux disease without esophagitis Status: Acute Assessment and Plan: PPI (6) Essential (primary) hypertension: Code(s): I10 - Essential (primary) hypertension Status: Acute Assessment and Plan: Continue losartan and amlodipine (7) New onset atrial fibrillation: Code(s): I48.91 - Unspecified atrial fibrillation Status: Acute Assessment and Plan: Given Cardizem 20 mg IV 1 time Started diltiazem 180 mg p.o. q.d. Started Eliquis 5 mg p.o. b.i.d. Echo pending Miguelito Vas of 4 Cardiology consult and appreciate recommendation Plan DVT prophylaxis Eliquis 5 mg p.o. b.i.d. Full code Waiting for placement. Subjective Date/time seen: 02/20/24 08:29 Interval history: Pending placement. Patient is currently on Eliquis 5 mg p.o. b.i.d. for new onset of atrial fibrillation.She had a CT scan of the pelvis which demonstrated fractures of the junction of superior pubic ramus and pubis, mid posterior inferior pubic ramus, and buckle fracture of the anterior sacral ala. Managed conservatively. Review of Systems Review of Systems: fall, pain with ambulation Exam Narrative: Laying in bed Const: General: comfortable, no acute distress, well developed, alert, awake and average body habitus Nutritional Appearance: average body habitus Orientation/consciousness: patient oriented x3 HENMT: Head: normal to inspection, normocephalic and atraumatic Ears: hearing grossly normal bilaterally Face/Nose/Sinus: normal facial exam Face and sinus: normal facial exam Eyes: General: appearance normal, both eyes and all related structures Pupils: Equal, round and reactive pupils present EOM: EOMs intact bilaterally Neck: Neck: full ROM, no lymphadenopathy and no JVD Thyroid: thyroid normal Lymphatic: no lymphadenopathy noted Resp: Effort & Inspection: normal respiratory effort and able to speak in complete sentences Auscultation: clear to auscultation bilaterally Cardio: Jugular venous distension: no JVD Rate: regular rate Rhythm: regular rhythm Heart sounds: S1 normal heart sound present and S2 normal heart sound present : General: Yes deferred Skin: Rashes: no rashes Wounds: no wounds Neuro: General: patient oriented x3, CN's II-XI intact bilaterally and Unable to assess gait Cranial nerves: Yes CN's II-XII intact bilaterally and Yes Equal, round and reactive pupils present Cognition (Neuro): normal cognition Speech: normal speech Gait exam (Neuro): Unable to assess gait Motor exam (neuro): 5/5 motor strength present throughout Extrem: General: normal to inspection, full ROM, no joint enlargement and no pedal edema Objective Data Vital Signs Vital Signs: Vital Signs - 24 hr 02/19/24 12:02 02/19/24 14:19 02/19/24 16:02 Temperature 98.0 F Pulse Rate 82 76 59 L Respiratory Rate 17 Blood Pressure 113/70 Pulse Oximetry 95 Oxygen Delivery 02/19/24 20:00 02/19/24 20:17 02/19/24 20:48 Temperature 98.2 F Pulse Rate 70 64 Respiratory Rate 18 Blood Pressure 121/76 Pulse Oximetry 95 95 Oxygen Delivery Room Air 02/20/24 00:00 02/20/24 04:00 02/20/24 05:27 Temperature 98.6 F Pulse Rate 57 L 54 L 69 Respiratory Rate 14 Blood Pressure 113/89 Pulse Oximetry 96 Oxygen Delivery Intake/Output Intake/Output: Intake & Output 02/17/24 02/18/24 02/19/24 02/20/24 23:59 23:59 23:59 23:59 Intake Total 950 1060 1370 550 Balance 950 1060 1370 550 Meds/Results Medications: Active Medications Generic Name Dose Route Start Last Admin Trade Name Freq PRN Reason Stop Dose Admin Acetaminophen 650 mg 02/11/24 18:00 02/20/24 05:57 Acetaminophen 325 Mg Tablet PO Not Given Q6H CHEYANNE Al Hydrox/Mg Hydrox/Simethicone 30 ml 02/11/24 02:39 Mag Hydrox/Al Hydrox/Simeth 30 Ml Udc PO Q6H PRN Indigestion Apixaban 5 mg 02/18/24 21:00 02/19/24 20:48 Apixaban 5 Mg Tablet PO 5 mg Q12HR CHEYANNE Administration Calcium Carbonate 500 mg 02/12/24 17:00 02/19/24 16:18 Calcium Carbonate (Oscal) 500 Mg Tablet PO 500 mg BIDWM CHEYANNE Administration Diltiazem HCl 180 mg 02/18/24 12:30 02/19/24 08:20 Diltiazem Hcl Cd 180 Mg Cap.24hr PO 180 mg QAM CHEYANNE Administration Ergocalciferol 50,000 units 02/19/24 09:00 02/19/24 08:23 Ergocalciferol 50,000 Units Capsule PO 50,000 units Sa@0900 CHEYANNE Administration Miscellaneous Information 0 each 02/19/24 00:01 Tramadol Renew If Still Needs Or Will Auto D/C XX 03/20/24 00:00 CLARIFY CHEYANNE Oxybutynin Chloride 5 mg 02/11/24 09:00 02/19/24 08:20 Oxybutynin Chloride 5 Mg Tablet PO 5 mg DAILY CHEYANNE Administration Polyethylene Glycol 17 gm 02/11/24 02:39 Polyethylene Glycol 3350 17 Gm Powd.Pack PO QAM PRN Constipation Polyethylene Glycol 17 gm 02/13/24 09:00 02/19/24 08:21 Polyethylene Glycol 3350 17 Gm Powd.Pack PO Not Given QAM CHEYANNE Senna/Docusate Sodium 2 tab 02/12/24 17:00 02/19/24 16:18 Senna/Docusate Sodium Tablet PO Not Given BID CHEYANNE Tramadol HCl 50 mg 02/10/24 22:07 02/13/24 13:01 Tramadol Hcl (*Crx) 50 Mg Tablet PO 50 mg Q4H PRN Administration Pain Rated 4-6 Vitamin D 5,000 units 02/12/24 11:15 02/19/24 08:20 Cholecalciferol 5,000 Units Tablet PO 5,000 units DAILY CHEYANNE Administration Radiology Results: ITS Impressions Pelvis CT 02/10/24 14:59 IMPRESSION: 1. Nondisplaced fractures at the right sacral ala, right pubic body and posterior lateral aspect of the right inferior pubic ramus. Lumbar Spine CT 02/10/24 15:07 IMPRESSION: 1. Chronic T12 burst fracture. 2. Nondisplaced acute fracture of the right sacral ala. 3. 10 degrees thoracolumbar levocurvature with mild spondylosis. 4. Large sliding-type hiatal hernia. Hip/Pelvis X-Ray 02/11/24 13:14 IMPRESSION: 1. Nondisplaced fracture of right parasymphyseal pubis. The other fractures seen by CT are not visible. 2. Mild osteoarthritis of the hips. Hospitalist MIPS Advance Care Plan I have confirmed that the patient's Advanced Care Plan is present, code status is documented, or surrogate decision maker is listed in patient medical record.: Yes Medication Reconciliation I have utilized all available resources to obtain, update and review the patients current medications (includes all prescriptions, OTC, herbals, cannabis, and nutritional supplements).: Yes
[2024-02-20 08:31] LABS: Hematocrit 38.2 % (37.0-47.0); Hemoglobin 12.6 g/dL (12.0-15.0); Mean Corpuscular Hemoglobin 31.3 pg (26-34); Mean Corpuscular Volume 94.8 fl (80-100); Mean Platelet Volume 11.1 fl (7.4-10.4); Platelet Count Result 317 k/mm3 (150-375); Red Blood Count 4.03 M/mm3 (4.2-5.4); White Blood Count 6.8 K/mm3 (4.5-10.0)
[2024-02-20 08:39] LABS: Alanine Aminotransferase 39 U/L (6-35); Albumin Level 3.5 g/dL (3.5-5.1); Alkaline Phosphatase 143 U/L (38-126); Anion Gap 1 mmol/L (4-12); Aspartate Amino Transferase 27 U/L (14-36); Bilirubin,Total 0.4 mg/dL (0.2-1.3); Blood Urea Nitrogen 13 mg/dL (7-17); Carbon Dioxide 28 mmol/L (22-30); Chloride 109 mmol/L (98-107); Estimated CRCL calculation 50 ml/min; Estimated Glomerular Filt Rate > 60; Glucose 102 mg/dL (65-110); Potassium 3.7 mmol/L (3.4-5.0); Sodium 138 mmol/L (137-145)
[2024-02-20] MEDS: CHOLECALCIFEROL 5,000 UNITS TABLET 5000 UNITS PO (08:53)
[2024-02-20] MEDS: APIXABAN 5 MG TABLET PO ×2 (08:53→20:39)
[2024-02-20] MEDS: dilTIAZem HCL CD 180 MG CAP.24HR PO (08:54)
[2024-02-20] MEDS: CALCIUM CARBONATE (OSCAL) 500 MG TABLET PO (08:54)
[2024-02-20] MEDS: oxyBUTYnin CHLORIDE 5 MG TABLET PO (08:56)
[2024-02-21] VITALS (9 sets, daily range): BP systolic 132–147; BP diastolic 78–91; PULSE 53–83; RESP 16–18; TEMP 36.1–36.6; O2SAT 95–97
[2024-02-21] MEDS: APIXABAN 5 MG TABLET PO ×2 (08:49→21:35)
[2024-02-21] MEDS: dilTIAZem HCL CD 180 MG CAP.24HR PO (08:50)
[2024-02-21] MEDS: oxyBUTYnin CHLORIDE 5 MG TABLET PO (08:50)
[2024-02-21] MEDS: CHOLECALCIFEROL 5,000 UNITS TABLET 5000 UNITS PO (08:50)
[2024-02-21 08:58] LABS: Hematocrit 39.1 % (37.0-47.0); Hemoglobin 12.8 g/dL (12.0-15.0); Mean Corpuscular HGB Conc 32.7 g/dl (32-36); Mean Corpuscular Volume 94.7 fl (80-100); Mean Platelet Volume 10.8 fl (7.4-10.4); Platelet Count Result 342 k/mm3 (150-375); Red Blood Count 4.13 M/mm3 (4.2-5.4); Red Cell Distribution Width 13.8 % (11.5-14.5); White Blood Count 6.9 K/mm3 (4.5-10.0)
[2024-02-21 09:07] LABS: Alanine Aminotransferase 31 U/L (6-35); Albumin Level 3.7 g/dL (3.5-5.1); Alkaline Phosphatase 154 U/L (38-126); Anion Gap 4 mmol/L (4-12); Aspartate Amino Transferase 23 U/L (14-36); Bilirubin,Total 0.5 mg/dL (0.2-1.3); Blood Urea Nitrogen 13 mg/dL (7-17); Calcium 9.9 mg/dL (8.4-10.2); Carbon Dioxide 26 mmol/L (22-30); Chloride 108 mmol/L (98-107); Estimated CRCL calculation 50 ml/min; Estimated Glomerular Filt Rate > 60; Glucose 120 mg/dL (65-110); Potassium 3.5 mmol/L (3.4-5.0); Sodium 138 mmol/L (137-145)
--- NOTE | 2024-02-21 10:36 | P.PNIM_ITS ---
Progress Note: A&P Assessment and Plan (1) Unable to ambulate: Code(s): R26.2 - Difficulty in walking, not elsewhere classified Status: Acute Assessment and Plan: PT/OT monitor (2) Fall from ground level: Code(s): W18.30XA - Fall on same level, unspecified, initial encounter Status: Acute Assessment and Plan: Mechanical fall (3) Multiple pelvic fractures: Qualifiers: Encounter type: initial encounter Fracture alignment: without disruption of pelvic ring Fracture type: closed Qualified Code(s): S32.82XA - Multiple fractures of pelvis without disruption of pelvic ring, initial encounter for closed fracture Code(s): S32.82XA - Multiple fractures of pelvis without disruption of pelvic ring, initial encounter for closed fracture Status: Acute Assessment and Plan: Conservative management PRN pain control awating Placement Ortho following (4) Osteoporosis: Code(s): M81.0 - Age-related osteoporosis without current pathological fracture Status: Acute Assessment and Plan: Follow-up in outpatient setting (5) Gastroesophageal reflux disease: Code(s): K21.9 - Gastro-esophageal reflux disease without esophagitis Status: Acute Assessment and Plan: PPI (6) Essential (primary) hypertension: Code(s): I10 - Essential (primary) hypertension Status: Acute Assessment and Plan: Continue losartan and amlodipine (7) New onset atrial fibrillation: Code(s): I48.91 - Unspecified atrial fibrillation Status: Acute Assessment and Plan: Given Cardizem 20 mg IV 1 time Started diltiazem 180 mg p.o. q.d. Started Eliquis 5 mg p.o. b.i.d. Echo pending Miguelito Vasc of 4 Cardiology consult and appreciate recommendation Plan DVT prophylaxis Eliquis 5 mg p.o. b.i.d. Full code Waiting for placement. Subjective Date/time seen: 02/21/24 10:36 Interval history: Continues to feel better. Pending discharge.Patient is currently on Eliquis 5 mg p.o. b.i.d. due to new onset of atrial fibrillation.She had a CT scan of the pelvis which demonstrated fractures of the junction of superior pubic ramus and pubis, mid posterior inferior pubic ramus, and buckle fracture of the anterior sacral ala. Managed conservatively. Review of Systems Review of Systems: fall, pain with ambulation Exam Narrative: Laying in bed Const: General: comfortable, no acute distress, well developed, alert, awake and average body habitus Nutritional Appearance: average body habitus Orientation/consciousness: patient oriented x3 HENMT: Head: normal to inspection, normocephalic and atraumatic Ears: hearing grossly normal bilaterally Face/Nose/Sinus: normal facial exam Face and sinus: normal facial exam Eyes: General: appearance normal, both eyes and all related structures Pupils: Equal, round and reactive pupils present EOM: EOMs intact bilaterally Neck: Neck: full ROM, no lymphadenopathy and no JVD Thyroid: thyroid normal Lymphatic: no lymphadenopathy noted Resp: Effort & Inspection: normal respiratory effort and able to speak in complete sentences Auscultation: clear to auscultation bilaterally Cardio: Jugular venous distension: no JVD Rate: regular rate Rhythm: regular rhythm Heart sounds: S1 normal heart sound present and S2 normal heart sound present : General: Yes deferred Skin: Rashes: no rashes Wounds: no wounds Neuro: General: patient oriented x3, CN's II-XI intact bilaterally and Unable to assess gait Cranial nerves: Yes CN's II-XII intact bilaterally and Yes Equal, round and reactive pupils present Cognition (Neuro): normal cognition Speech: normal speech Gait exam (Neuro): Unable to assess gait Motor exam (neuro): 5/5 motor strength present throughout Extrem: General: normal to inspection, full ROM, no joint enlargement and no pedal edema Objective Data Vital Signs Vital Signs: Vital Signs - 24 hr 02/20/24 12:00 02/20/24 14:00 02/20/24 16:00 Temperature 97.1 F L Pulse Rate 73 69 59 L Respiratory Rate 15 Blood Pressure 131/73 Pulse Oximetry 98 Oxygen Delivery 02/20/24 20:00 02/20/24 20:39 02/20/24 22:00 Temperature 98.5 F Pulse Rate 66 74 Respiratory Rate 16 Blood Pressure 123/75 Pulse Oximetry 98 94 Oxygen Delivery Room Air 02/21/24 00:00 02/21/24 04:00 02/21/24 06:00 Temperature 97.8 F Pulse Rate 60 53 L 69 Respiratory Rate 18 Blood Pressure 134/91 H Pulse Oximetry 96 Oxygen Delivery Intake/Output Intake/Output: Intake & Output 02/18/24 02/19/24 02/20/24 02/21/24 23:59 23:59 23:59 23:59 Intake Total 1060 1370 2007 740 Balance 1060 1370 2007 740 Meds/Results Medications: Active Medications Generic Name Dose Route Start Last Admin Trade Name Freq PRN Reason Stop Dose Admin Acetaminophen 650 mg 02/11/24 18:00 02/21/24 06:12 Acetaminophen 325 Mg Tablet PO Not Given Q6H CHEYANNE Al Hydrox/Mg Hydrox/Simethicone 30 ml 02/11/24 02:39 Mag Hydrox/Al Hydrox/Simeth 30 Ml Udc PO Q6H PRN Indigestion Apixaban 5 mg 02/18/24 21:00 02/21/24 08:49 Apixaban 5 Mg Tablet PO 5 mg Q12HR CHEYANNE Administration Calcium Carbonate 500 mg 02/12/24 17:00 02/20/24 17:27 Calcium Carbonate (Oscal) 500 Mg Tablet PO Not Given BIDWM CHEYANNE Diltiazem HCl 180 mg 02/18/24 12:30 02/21/24 08:50 Diltiazem Hcl Cd 180 Mg Cap.24hr PO 180 mg QAM CHEYANNE Administration Ergocalciferol 50,000 units 02/19/24 09:00 02/19/24 08:23 Ergocalciferol 50,000 Units Capsule PO 50,000 units Sa@0900 [facility] Administration Miscellaneous Information 0 each 02/19/24 00:01 Tramadol Renew If Still Needs Or Will Auto D/C XX 03/20/24 00:00 [facility] Oxybutynin Chloride 5 mg 02/11/24 09:00 02/21/24 08:50 Oxybutynin Chloride 5 Mg Tablet PO 5 mg DAILY CHEYANNE Administration Polyethylene Glycol 17 gm 02/11/24 02:39 Polyethylene Glycol 3350 17 Gm Powd.Pack PO QAM PRN Constipation Polyethylene Glycol 17 gm 02/13/24 09:00 02/20/24 08:56 Polyethylene Glycol 3350 17 Gm Powd.Pack PO Not Given QAM CHEYANNE Senna/Docusate Sodium 2 tab 02/12/24 17:00 02/20/24 17:27 Senna/Docusate Sodium Tablet PO Not Given BID [facility] Vitamin D 5,000 units 02/12/24 11:15 02/21/24 08:50 Cholecalciferol 5,000 Units Tablet PO 5,000 units DAILY CHEYANNE Administration Radiology Results: ITS Impressions Pelvis CT 12/26/24 14:59 IMPRESSION: 1. Nondisplaced fractures at the right sacral ala, right pubic body and posterior lateral aspect of the right inferior pubic ramus. Lumbar Spine CT 02/10/24 15:07 IMPRESSION: 1. Chronic T12 burst fracture. 2. Nondisplaced acute fracture of the right sacral ala. 3. 10 degrees thoracolumbar levocurvature with mild spondylosis. 4. Large sliding-type hiatal hernia. Hip/Pelvis X-Ray 02/11/24 13:14 IMPRESSION: 1. Nondisplaced fracture of right parasymphyseal pubis. The other fractures seen by CT are not visible. 2. Mild osteoarthritis of the hips. Labs Labs: Laboratory Results - last 24 hr 02/21/24 08:38 WBC 6.9 RBC 4.13 L Hgb 12.8 Hct 39.1 MCV 94.7 MCH 31.0 MCHC 32.7 RDW 13.8 Plt Count 342 MPV 10.8 H Sodium 138 Potassium 3.5 Chloride 108 H Carbon Dioxide 26 Anion Gap 4 BUN 13 Creatinine 0.70 Estim Creat Clear Calc 50 Estimated GFR > 60 Glucose 120 H Calcium 9.9 Total Bilirubin 0.5 AST 23 ALT 31 Alkaline Phosphatase 154 H Total Protein 7.0 Albumin 3.7 Hospitalist MIPS Advance Care Plan I have confirmed that the patient's Advanced Care Plan is present, code status is documented, or surrogate decision maker is listed in patient medical record.: Yes Medication Reconciliation I have utilized all available resources to obtain, update and review the patients current medications (includes all prescriptions, OTC, herbals, ca nnabis, and nutritional supplements).: Yes
--- NOTE | 2024-02-21 12:03 | PC.NURSE ---
No changes from this RN's last assessment, A-O-4, RA, no c/o pain.
[2024-02-22 00:04] VITALS: PULSE 55
[2024-02-22 04:00] VITALS: PULSE 55
[2024-02-22 06:00] VITALS: BP 134/72; PULSE 60; RESP 18; TEMP 36.4; O2SAT 96
[2024-02-22 06:49] LABS: Hemoglobin 12.2 g/dL (12.0-15.0); Mean Corpuscular Volume 94.1 fl (80-100); Mean Platelet Volume 10.8 fl (7.4-10.4); Platelet Count Result 338 k/mm3 (150-375); Red Blood Count 3.93 M/mm3 (4.2-5.4); Red Cell Distribution Width 13.8 % (11.5-14.5); White Blood Count 7.2 K/mm3 (4.5-10.0)
[2024-02-22 07:06] LABS: Alanine Aminotransferase 24 U/L (6-35); Albumin Level 3.3 g/dL (3.5-5.1); Alkaline Phosphatase 164 U/L (38-126); Anion Gap 3 mmol/L (4-12); Aspartate Amino Transferase 18 U/L (14-36); Bilirubin,Total 0.5 mg/dL (0.2-1.3); Blood Urea Nitrogen 13 mg/dL (7-17); Calcium 9.2 mg/dL (8.4-10.2); Carbon Dioxide 26 mmol/L (22-30); Chloride 108 mmol/L (98-107); Estimated CRCL calculation 59 ml/min; Estimated Glomerular Filt Rate > 60; Glucose 104 mg/dL (65-110); Potassium 3.4 mmol/L (3.4-5.0); Sodium 137 mmol/L (137-145)
[2024-02-22] MEDS: CALCIUM CARBONATE (OSCAL) 500 MG TABLET PO (08:41)
[2024-02-22] MEDS: APIXABAN 5 MG TABLET PO (08:41)
[2024-02-22] MEDS: dilTIAZem HCL CD 180 MG CAP.24HR PO (08:41)
[2024-02-22] MEDS: CHOLECALCIFEROL 5,000 UNITS TABLET 5000 UNITS PO (08:41)
[2024-02-22] MEDS: oxyBUTYnin CHLORIDE 5 MG TABLET PO (08:41)
--- NOTE | 2024-02-22 09:42 | P.DS_ITS ---
DS: Admitting Diagnosis Discharge Date 02/22/2024 Admitting Diagnosis ground level fall DS: Discharge Diagnosis Discharge Diagnosis (1) Unable to ambulate: Code(s): R26.2 - Difficulty in walking, not elsewhere classified Status: Acute Assessment and Plan: PT/OT monitor (2) Fall from ground level: Code(s): W18.30XA - Fall on same level, unspecified, initial encounter Status: Acute Assessment and Plan: Mechanical fall (3) Multiple pelvic fractures: Qualifiers: Encounter type: initial encounter Fracture alignment: without disruption of pelvic ring Fracture type: closed Qualified Code(s): S32.82XA - Multiple fractures of pelvis without disruption of pelvic ring, initial encounter for closed fracture Code(s): S32.82XA - Multiple fractures of pelvis without disruption of pelvic ring, initial encounter for closed fracture Status: Acute Assessment and Plan: Conservative management PRN pain control Ortho following (4) Osteoporosis: Code(s): M81.0 - Age-related osteoporosis without current pathological fracture Status: Acute Assessment and Plan: Follow-up in outpatient setting (5) Gastroesophageal reflux disease: Code(s): K21.9 - Gastro-esophageal reflux disease without esophagitis Status: Acute Assessment and Plan: PPI (6) Essential (primary) hypertension: Code(s): I10 - Essential (primary) hypertension Status: Acute Assessment and Plan: Continue losartan and amlodipine (7) New onset atrial fibrillation: Code(s): I48.91 - Unspecified atrial fibrillation Status: Acute Assessment and Plan: Given Cardizem 20 mg IV 1 time Started diltiazem 180 mg p.o. q.d. Started Eliquis 5 mg p.o. b.i.d. Echo Left ventricular systolic function is normal, estimated at 55-60%. Miguelito Vasc of 4 Cardiology consult DS: Summary Hospital Course Hospital Course: Patient is a 79-year-old female was admitted through the emergency room if after a ground level fall onto concrete onto her right hip. She had a CT scan of the pelvis which demonstrated fractures of the junction of superior pubic ramus and pubis, mid posterior inferior pubic ramus, and buckle fracture of the anterior sacral ala. she was unable to put any weight on the right leg emergency room so she further evaluation.Patient denied any prior problems of pain in the right hip. Patient does have long history of osteoporosis and she was treated with Fosamax for about 10 years and recently came off. I will check a 25 hydroxy vitamin-D level and supplement if it is low. 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 As per ortho, On examination she is cup as long as she is not moving. Such as rolling to the side a little bit she complains of pain around the right eligio pelvis Assessment and plan by ortho: Patient has displaced buckle fractures right inferior and superior pubic rami and right sacral ala. we will ask physical therapy to mobilize her. We will be weight initially. Explained to her that she is at risk for blood clot problems because of her decreased activity. We will utilize SCDs while she is here and start Lovenox 40 mg daily plan to use this for approximately 4 weeks. Exam. The lower dose Lovenox should be the coagulation option. Will check a 25 hydroxy vitamin-D level. Will calcium supplement to her diet. Patient would like to be transferred to the acute rehabilitation if she qualifies Assumed care on 02/16: Night team reported new episode of AFib with RVR and was given Cardizem 20. Morning she had heart rate around 120 to 130s but later converted back to sinus rhythm. Consulted Cardiology and appreciate recommendation. Her blood pressure on soft side. Since her blood pressure is on the soft side advised to consult Cardiology and possibly starting on amiodarone. Ordered echo. Miguelito Vasc score of 4. Patient is not on anticoagulation. Discussed with the Cardiology and advised can be given metoprolol 25 mg if necessary. Patient echocardiogram still not performed. Since her blood pressure on the soft side advised the nursing team to give metoprolol 12.5 mg if necessary. 02/17:Discussed with the patient about starting Eliquis. Patient agrees to starting the Eliquis 5 mg p.o. b.i.d.. Patient had 2 falls this year. Talked about benefit versus risk. Patient also spoke to Cardiology. Beam House Inspector spoke to me after talking to the patient and agrees with starting Eliquis 5 mg p.o. b.i.d.. Patient is also started on diltiazem 180 mg p.o. q.d. 02/20 : Today she was approved for SNF. During hospitalization patient was treated for new onset of AFib and managed conservatively for the pelvic fracture. Advised patient to monitor any signs of shortness of breath, palpitation, chest pain since the patient has been started on Eliquis 5 mg p.o. b.i.d.. Also requested to watch her urine on a stool for any signs of discoloration. Patient needs to follow up with Cardiology, PCP and Ortho within a week upon discharge. Patient is a high risk for fall. Needs falls precaution. Since patient is started on Eliquis, prophylactic dose of Lovenox ordered by the ortho has been discontinued. Echo shows Left ventricular systolic function is normal, estimated at 55-60%. Status at Discharge Cognitive/behavioral status at discharge: Stable Time Spent with Patient Time attestation: Total time spent providing and/or coordinating discharge services: 45 minutes Exam Narrative: Laying in bed Const: General: comfortable, no acute distress, well developed, alert, awake and average body habitus Nutritional Appearance: average body habitus Orientation/consciousness: patient oriented x3 HENMT: Head: normal to inspection, normocephalic and atraumatic Ears: hearing grossly normal bilaterally Face/Nose/Sinus: normal facial exam Face and sinus: normal facial exam Eyes: General: appearance normal, both eyes and all related structures Pupils: Equal, round and reactive pupils present EOM: EOMs intact bilaterally Neck: Neck: full ROM, no lymphadenopathy and no JVD Thyroid: thyroid normal Lymphatic: no lymphadenopathy noted Resp: Effort & Inspection: normal respiratory effort and able to speak in comp lete sentences Auscultation: clear to auscultation bilaterally Cardio: Jugular venous distension: no JVD Rate: regular rate Rhythm: regular rhythm Heart sounds: S1 normal heart sound present and S2 normal heart sound present : General: Yes deferred Skin: Rashes: no rashes Wounds: no wounds Neuro: General: patient oriented x3, CN's II-XI intact bilaterally and Unable to assess gait Cranial nerves: Yes CN's II-XII intact bilaterally and Yes Equal, round and reactive pupils present Cognition (Neuro): normal cognition Speech: normal speech Gait exam (Neuro): Unable to assess gait Motor exam (neuro): 5/5 motor strength present throughout Extrem: General: normal to inspection, full ROM, no joint enlargement and no pedal edema DS: Data Data Completed and Pending Labs on day of discharge: Labs from last 24 hours 02/22/24 06:30 WBC 7.2 RBC 3.93 L Hgb 12.2 Hct 37.0 MCV 94.1 MCH 31.0 MCHC 33.0 RDW 13.8 Plt Count 338 MPV 10.8 H Sodium 137 Potassium 3.4 Chloride 108 H Carbon Dioxide 26 Anion Gap 3 L BUN 13 Creatinine 0.58 L Estim Creat Clear Calc 59 Estimated GFR > 60 Glucose 104 Calcium 9.2 Total Bilirubin 0.5 AST 18 ALT 24 Alkaline Phosphatase 164 H Total Protein 7.0 Albumin 3.3 L Imaging Radiologist's impression: ITS Impressions Pelvis CT 02/10/24 14:59 IMPRESSION: 1. Nondisplaced fractures at the right sacral ala, right pubic body and posterior lateral aspect of the right inferior pubic ramus. Lumbar Spine CT 02/10/24 15:07 IMPRESSION: 1. Chronic T12 burst fracture. 2. Nondisplaced acute fracture of the right sacral ala. 3. 10 degrees thoracolumbar levocurvature with mild spondylosis. 4. Large sliding-type hiatal hernia. Hip/Pelvis X-Ray 02/11/24 13:14 IMPRESSION: 1. Nondisplaced fracture of right parasymphyseal pubis. The other fractures seen by CT are not visible. 2. Mild osteoarthritis of the hips. Discharge Plan Discharge Attending physician on discharge: Og Crandall Consulting providers: Brennen Larson; James Aguilera Discharging Clinician: Og Crandall Anticipated Discharge Date/Time: 02/22/24 09:51 Patient Disposition: Inpatient Rehab Facility Activity: other - see discharge instructions Diet: heart healthy Discharge Instructions: Light partial weight-bearing right lower extremity. CBC on 02/19/2024. Call physician if platelets less than 100,000 or hemoglobin less than 10 During hospitalization patient was treated for new onset of AFib and managed conservatively for the pelvic fracture. Advised patient to monitor any signs of shortness of breath, palpitation, chest pain since the patient has been started on Eliquis 5 mg p.o. b.i.d.. Requested to watch her urine or stool for any signs of discoloration. Patient needs to follow up with Cardiology, PCP and Ortho within a week upon discharge. Patient is a high risk for fall. Needs falls precaution. Patient Language: Faroese Stand Alone Forms: General Discharge Information Follow-up/Referrals: Monie Bruno MD [Primary Care Provider] - (Patient started on Eliquis 5 mg p.o. b.i.d. and diltiazem due to new onset of AF.) Discharge Medications: New sennosides-docusate sodium [Senokot-S] 8.6-50 mg Tablet 2 tab PO BID Qty: 120 0RF diltiazem HCl 180 mg Capsule,Ext.Rel 24h Degradable 180 mg PO QAM Qty: 30 0RF cholecalciferol (vitamin D3) 125 mcg (5,000 unit) Tablet 125 mcg PO DAILY Qty: 60 0RF calcium carbonate [Oyster Shell Calcium 500] 500 mg calcium (1,250 mg) Tablet 500 mg PO BIDWM Qty: 30 0RF ergocalciferol (vitamin D2) [Vitamin D2] 1,250 mcg (50,000 unit) Capsule 1,250 mcg PO Sa@0900 Qty: 30 0RF Eliquis 5 mg Tablet 5 mg PO Q12HR Qty: 30 0RF Continued pantoprazole [Protonix] 40 mg tablet,delayed release (DR/EC) 40 mg PO QHS Qty: 90 0RF amlodipine 5 mg tablet See Rx Instructions .ROUTE .COMPLEX Qty: 90 2RF Dose Instruction: TAKE 1 TABLET BY MOUTH DAILY Rx Instructions: TAKE 1 TABLET BY MOUTH DAILY losartan 50 mg tablet 50 mg PO DAILY Qty: 90 3RF oxybutynin chloride 5 mg tablet 5 mg PO DAILY Qty: 30 2RF Date of admission: 02/10/24 21:59 Primary Care Provider: Monie Bruno Admitting Provider: Yanci Olsen V. Attending physician on admission: Yanci Olsen V. Condition: Stable
[2024-02-22 11:55] LABS: SARS-CoV-2 RNA PCR Negative (Negative)
[2024-02-22 12:00] VITALS: PULSE 75
== END 2024-02-22 15:30 ==
LOC: ANHED 22:09 → ANH3MEDSUR 02-11 10:37
PROVIDERS: Nurse Practitioner; Orthopaedic Surgery; Admitting Provider Internal Medicine; Emergency Provider Physician Assistant; PCP Family Medicine; Visit Provider General Practice
DX: S32.82XA Multiple fractures of pelvis without disruption of pelvic ring, initial encounter for closed fracture (principal); W18.39XA Other fall on same level, initial encounter; R26.2 Difficulty in walking, not elsewhere classified; M81.0 Age-related osteoporosis without current pathological fracture; I48.0 Paroxysmal atrial fibrillation; S22.081A Stable burst fracture of T11-T12 vertebra, initial encounter for closed fracture; M53.3 Sacrococcygeal disorders, not elsewhere classified; I10 Essential (primary) hypertension; M54.50 Low back pain, unspecified; G89.29 Other chronic pain; R73.03 Prediabetes; K21.9 Gastro-esophageal reflux disease without esophagitis; E78.2 Mixed hyperlipidemia; E53.8 Deficiency of other specified B group vitamins; E55.9 Vitamin D deficiency, unspecified; E21.0 Primary hyperparathyroidism; L71.9 Rosacea, unspecified; Z11.52 Encounter for screening for COVID-19; Z75.1 Person awaiting admission to adequate facility elsewhere
CPT/HCPCS: 36415; 72131; 72192; 73502; 80053; 82306; 83605; 83735; 84100; 85025; 85027; 85610; 85730; 87635; 93005; 96372; 96374; 96375; 97110; 97116; 97161; 97165; 97530; 97535; 99285; A9270; C8929; G0378; J1650; Q9957

== ENCOUNTER 2024-03-31 08:46 | Outpatient (CLI) | payer MEDICARE, SELFPAY ==
--- NOTE | ~2024-03-31 | MM_ITS ---
EXAMINATION: MM screening [facility] BI w yasir HISTORY: Screening TECHNIQUE: Craniocaudal and mediolateral oblique 3-D tomosynthesis images were obtained and synthetic 2-D images were generated. CAD analysis was submitted and interpreted. COMPARISON: Comparison to multiple prior studies sequentially, with oldest reviewed study dated 05/25. BREAST PARENCHYMAL COMPOSITION: Not dense: There are scattered areas of fibroglandular density. FINDINGS: There is no evidence of suspicious mass, calcification, or architectural distortion to sugg est malignancy in either breast. There has been no suspicious interval change. IMPRESSION: 1. No mammographic evidence of malignancy. 2. Recommend routine screening mammography in one year. BI-RADS Category 1: Negative Reviewed, dictated and finalized at location B. OZOOLOGIST
--- NOTE | ~2024-03-31 | DEXA_ITS ---
Bone Density Report Name: JOSE RAUL BOLES Age: 79 Sex: Female Ethnicity: White Date of : 1945 Indication: postmenopausal osteoporosis; monitoring treatment; height loss; prior fracture; Referring Provider: CHAD ROTH Study: Bone densitometry was performed. Exam Date: March 31, 2024 Accession number: [id number] Bone Density: Region BMD T-score Z-score Classification AP Spine(L1-L4) 0.621 -3.9 -1.2 Osteoporosis Femoral Neck (Left) 0.491 -3.2 -1.0 Osteoporosis Total Hip (Left) 0.666 -2.3 -0.2 Osteopenia Femoral Neck (Right) 0.547 -2.7 -0.5 Osteoporosis Total Hip (Right) 0.648 -2.4 -0.4 Osteopenia Total Hip Mean 0.657 -2.4 -0.3 Osteopenia World Health Organization criteria for BMD impression classify patients as: Normal (T-score at or above -1.0), Osteopenia (T-score between -1.0 and -2.5), or Osteoporosis (T-score at or below -2.5). 10-year Fracture Risk: FRAX not reported because: Some T-score for Spine Total or Hip Total or Femoral Neck at or below -2.5 Prior hip or vertebral fracture Treated for osteoporosis Previous Exams: Region Exam Age BMD T-score BMD Change BMD Change Date g/cm2 vs Baseline vs Previous AP Spine (L1-L4) 03/31/2024 79 0.621 -3.9 -0.160 (-20.5% -0.118 (-15.9% 01/28/2022 77 0.739 -2.8 -0.043 (-5.5%) 0.005 (0.7%) 11/01/2019 74 0.733 -2.9 -0.048 (-6.2%) 0.004 (0.6%)# 06/01/2017 72 0.729 -2.9 -0.053 (-6.8%) -0.011 (-1.5%) 05/31/2015 70 0.740 -2.8 -0.042 (-5.3%) -0.042 (-5.3%) 11/28/2012 67 0.782 -2.4 Total Hip(Left) 03/31/2024 79 0.666 -2.3 -0.118 (-15.1% -0.044 (-6.2%) 01/28/2022 77 0.711 -1.9 -0.074 (-9.4%) 0.002 (0.3%) 11/01/2019 74 0.709 -1.9 -0.076 (-9.7%) -0.059 (-7.7%) 06/01/2017 72 0.767 -1.4 -0.017 (-2.2%) 0.005 (0.6%) 05/31/2015 70 0.763 -1.5 -0.022 (-2.8%) -0.022 (-2.8%) 11/28/2012 67 0.785 -1.3 Total Hip(Right) 03/31/2024 79 0.648 -2.4 -0.165 (-20.3% -0.078 (-10.8% 01/28/2022 77 0.726 -1.8 -0.087 (-10.7% -0.002 (-0.2%) 11/01/2019 74 0.728 -1.8 -0.085 (-10.5% -0.086 (-10.6% 06/01/2017 72 0.814 -1.0 0.001 (0.1%)# 0.015 (1.8%) 05/31/2015 70 0.799 -1.2 -0.014 (-1.7%) -0.014 (-1.7%) 11/28/2012 67 0.813 -1.1 *Denotes significance at 95% confidence level, LSC for AP Spine = 0.022 g/cm2, LSC for Total Hip = 0.027 g/cm2 # Denotes dissimilar scan types or analysis methods Clinical Information Provided by Patient: Have had a previous hip or vertebral fracture Has had a low trauma fracture Is being treated for osteoporosis Has used the following medications: Fosamax (i.e. alendronate), Vitamin D, Calcium Patient maximum height was 62.5 Menopause Age: 46 No regular weight bearing exercise Drinks caffeinated beverages Onset of menses at age 15 Number of children 0 Impression: The patient has established osteoporosis, based on the Total Spine T-score and the existence of a prior fracture. The patient has risk factors, including: previous fracture. The BMD for the AP Spine (L1-L4) decreased, changing by -15.9% since the last DXA exam. The BMD for the Total Hip(Left) decreased, changing by -6.2% since the last DXA exam. The BMD for the Total Hip(Right) decreased, changing by -10.8% since the last DXA exam. Discussion: SIGNIFICANT BONE LOSS OBSERVED. Adherence to therapy (including calcium and vitamin D intake) should be assessed. If compliance is not a factor, review management and exclusion of secondary causes of bone loss. It is important to ask patients whether they are taking their medications and to encourage continued and appropriate compliance with their osteoporosis therapies to reduce fracture risk. It is also important to review their risk factors and encourage appropriate calcium and vitamin D intakes, exercise, fall prevention and other lifestyle measures. Follow-Up: Consider a repeat BMD and Vertebral Fracture Assessment (VFA) exam in 2 years or sooner if medically necessary, to reassess this patient's status. Reported by: JESSICA on 03/31/2024 8:04:00 AM. Reviewed, dictated and finalized at location [facility]
--- OUTSIDE RECORDS SUMMARY | 2024-03-31 07:28 | XMS_ITS | Continuity of Care Document ---
Author Organization [facility] Address [address] [place] [address] Phone Care Team Providers Care Piano Professor Name Role Phone Fish Lazar Unavailable Unavailable Procedures Procedure Date Office/outpatient Visit, Est Office/outpatient Visit, Est Office/outpatient Visit, Est Office/outpatient Visit, Est Office/outpatient Visit, Est Office/outpatient Visit, New Advance Directives Directive Yes / No Effective Date File Name No Information Encounters Encounter Description Practice Location Reason(s) For Visit Diagnoses Date Provider Providers Copied on Encounter Office/outpat ient Visit, [facility] [place], [address] [place] [address] [address], [place], [place], [id number], [place] tel:[phone] [facility] No Information 0 Nagi Whitten. [address] [place], [place] [address]ate [place] , [address], [place], [place], [facility], [place]. tel:[phone] Office/outpat ient Visit, [facility] [place], [address], [place], [place], [id number], [place] tel:[phone] [facility] No Information 0 Sab[address]. [address], [place], [place], [facility], . tel:[phone] Office/outpat ient Visit, [facility] [place], [address] [place] [address] [address], [place], [place], [id number], [place] tel:[phone] [facility] No Information 0- [address] Krish[address]. [address], [address], [place]. tel:[phone] Office/outpat ient Visit, [facility], [address], [place], [place], [id number], [place] tel:[phone] [facility] No Information 3- 0 Krishnasamy Rufino. [address] [place] [address], [facility], [place]. tel:[phone] Office/outpat ient Visit, [facility] [place], [address], [place], [place], [id number], [place] tel:[phone] [facility] No Information 0- 0 Krishnasamy Rufino. [address] [place] [address], [facility], [place]. tel:[phone] Office/outpat ient Visit, [facility], [address] [place] [address] [address], [place], [place], [id number], [place] tel:[phone] [facility] No Information 0 Krishnasamy Rufino. [address] [place] [address], [facility], [place]. tel:[phone] Family History Family Member Type Diagnosis Age At Onset No Information Payers Payer name Insurance type Covered democrat ID Authoriza tion(s) No Information Social History Type Description Quantity Date Captured Comments Sex Female Smoking Status No Information Chief Complaint And Reason For Visit No Information Reason For Referral Reason For Referral No Information History Of Present Illness Encounter Date Complaint History Of Prese nt Illness No Information Functional Status Date Functional Assessmen t No Information Instructions Date Instruction Additional Infor mation No Information Assessments Type Assessment Date No Information Patient Care Teams Name Effective Dates (start - stop) Status Members No Information
--- OUTSIDE RECORDS SUMMARY | 2024-03-31 07:28 | XMS_ITS | Clinical Summary ---
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, RIGHT PELVIS, 7THD Active 03-08 00:00: 00 MUSCLE WEAKNESS (GENERALIZED ) Active 02-15 00:00: 00 ESSENTIAL (PRIMARY) HYPERTENSION Active 02-15 00:00: 00 OTHER CHRONIC PAIN Active 02-15 00:00: 00 DORSALGIA, UNSPECIFIED Active 02-15 00:00: 00 LONG-TERM (CURRENT) USE OF ANTICOAGULAN TS Active 02-15 00:00: 00 HISTORY OF FALLING Active 02-20 00:00: 00 Allergies, Adverse Reactions, Alerts Allergy Name Allergy Type Status Severity Reaction(s) Onset Date Inactive Date Treating Clinician Comments NO KNOWN ALLERGIES Propensity to adverse reactions Active 03-14 10:46: 43 Medications Ordered Medication Name Filled Medication Name Start Date Stop Date Current Medication? Ordering Clinician Indication Dosage Frequency Signature (SIG) Comments Components oxybutynin chloride 5 mg tablet 02-23 00:00: 00 Yes [id number] OVERACTIVE BLADDER 1 tablet DAILY 1 tablet DAILY (route: oral) Med Classific ation: Genitouri nary Therapy amlodipine 5 mg tablet 02-15 00:00: 00 Yes [id number] HIGH BLOOD PRESSURE 1 tablet DAILY 1 tablet DAILY (route: oral) Med Classific ation: Cardiovas cular Therapy Agents Artificial Tears (carboxymet hylcellulos e) 1 % eye drops 02-15 00:00: 00 Yes [id number] NEEDED FOR DRY EYES 1 drops DAILY 1 drops DAILY (route: ophthalmic (eye)) Alternate Route: EACH EYE. Med Classific ation: Ophthalmi c Agents cholecalcif yun (vitamin D3) 1,250 mcg (50,000 unit) tablet 02-15 00:00: 00 Yes [id number] SUPPLEMENT 1 tablet WEEKLY 1 tablet WEEKLY (route: oral) Med Classific ation: Electroly te Balance-N utritiona l Products cholecalcif yun (vitamin D3) 125 mcg (5,000 unit) capsule 02-15 00:00: 00 Yes [id number] SUPPLEMENT 1 capsule DAILY 1 capsule DAILY (route: oral) Med Classific ation: Electroly te Balance-N utritiona l Products diltiazem CD 180 mg capsule,ext ended release 24 hr 03-08 00:00: 00 Yes [id number] HEART HEALTH 1 capsule DAILY 1 capsule DAILY (route: oral) Med Classific ation: Cardiovas cular Therapy Agents Eliquis 5 mg tablet 03-04 00:00: 00 Yes [id number] BLOOD THINNER 1 tablet 2 TIMES DAILY 1 tablet 2 TIMES DAILY (route: oral) Med Classific ation: Hematolog ical Agents losartan 50 mg tablet 03-04 00:00: 00 Yes [id number] HYPERTENSIO N 1 tablet DAILY 1 tablet DAILY (route: oral) Med Classific ation: Cardiovas cular Therapy Agents pantoprazol e 40 mg tablet,maddy yed release 02-15 00:00: 00 Yes [id number] REFLUX 1 tablet BEDTIME 1 tablet BEDTIME (route: oral) Med Classific ation: Gastroint estinal Therapy Agents Vital Signs Vital Name Observation Time Observation Value Commen ts Temperature 2024-03-29 14:18:00.000 97.3 [degF] Temperature 2024-03-27 12:42:00.000 98.2 [degF] Temperature 2024-03-27 09:55:00.000 97.2 [degF] Temperature 2024-03-23 16:05:00.000 97.8 [degF] Temperature 2024-03-23 09:37:00.000 96.2 [degF] Temperature 2024-03-21 13:55:00.000 97.6 [degF] Temperature 2024-03-15 16:18:00.000 98.2 [degF] Temperature 2024-03-14 10:49:00.000 98.5 [degF] BMI (%) 2024-03-14 10:24:06.000 27 kg/m2 Height 2024-03-14 10:23:59.000 62 [in_us] Pulse 2024-03-29 14:18:00.000 76 /min Pulse 2024-03-27 12:42:00.000 60 /min Pulse 2024-03-27 09:55:00.000 67 /min Pulse 2024-03-23 16:05:00.000 78 /min Pulse 2024-03-23 09:37:00.000 78 /min Pulse 2024-03-21 13:55:00.000 71 /min Pulse 2024-03-15 16:18:00.000 60 /min Pulse 2024-03-14 10:49:00.000 61 /min O2 Saturation (%) 2024-03-29 14:19:00.000 97 % O2 Saturation (%) 2024-03-27 12:42:00.000 99 % O2 Saturation (%) 2024-03-27 10:00:00.000 99 % O2 Saturation (%) 2024-03-23 16:06:00.000 97 % O2 Saturation (%) 2024-03-23 09:37:00.000 97 % O2 Saturation (%) 2024-03-21 13:55:00.000 97 % O2 Saturation (%) 2024-03-15 16:18:00.000 96 % O2 Saturation (%) 2024-03-14 10:49:00.000 98 % Respirations 2024-03-29 14:18:00.000 18 /min Respirations 2024-03-27 12:42:00.000 18 /min Respirations 2024-03-27 09:55:00.000 18 /min Respirations 2024-03-23 16:05:00.000 18 /min Respirations 2024-03-23 09:37:00.000 18 /min Respirations 2024-03-21 13:55:00.000 18 /min Respirations 2024-03-15 16:18:00.000 18 /min Respirations 2024-03-14 10:49:00.000 16 /min Weight (lbs) 2024-03-14 10:24:06.000 150 [lb_av] Systolic Blood Pressure 2024-03-29 14:18:00.000 128 mm [Hg] Systolic Blood Pressure 2024-03-27 12:42:00.000 128 mm [Hg] Systolic Blood Pressure 2024-03-27 09:55:00.000 138 mm [Hg] Systolic Blood Pressure 2024-03-23 16:05:00.000 126 mm [Hg] Systolic Blood Pressure 2024-03-23 09:37:00.000 120 mm [Hg] Systolic Blood Pressure 2024-03-21 13:55:00.000 116 mm [Hg] Systolic Blood Pressure 2024-03-15 16:18:00.000 118 mm [Hg] Systolic Blood Pressure 2024-03-14 10:49:00.000 118 mm [Hg] Diastolic Blood Pressure 2024-03-29 14:18:00.000 80 mm [Hg] Diastolic Blood Pressure 2024-03-27 12:42:00.000 68 mm [Hg] Diastolic Blood Pressure 2024-03-27 09:55:00.000 82 mm [Hg] Diastolic Blood Pressure 2024-03-23 16:05:00.000 80 mm [Hg] Diastolic Blood Pressure 2024-03-23 09:37:00.000 68 mm [Hg] Diastolic Blood Pressure 2024-03-21 13:55:00.000 68 mm [Hg] Diastolic Blood Pressure 2024-03-15 16:18:00.000 70 mm [Hg] Diastolic Blood Pressure 2024-03-14 10:49:00.000 72 mm [Hg] Plan of Treatment Planned Activity Planned Date Details Comments Future Scheduled Test AGENCY MAY PERFORM A RESUMPTION OF CARE VISIT FOLLOWING ANY HOSPITAL ADMISSION. PT TO EVALUATE, OBSERVE / ASSESS, AND MONITOR, BEEF TAGGER TO OBSERVE AND MONITOR, PROVIDE SKILLED THERAPEUTIC INTERVENTION, ACTIVITY, EDUCATION, AND TRAINING TO ADDRESS; [code = AGENCY MAY PERFORM A RESUMPTION OF CARE VISIT FOLLOWING ANY HOSPITAL ADMISSION. PT TO EVALUATE, OBSERVE / ASSESS, AND MONITOR, BEEF TAGGER TO OBSERVE AND MONITOR, PROVIDE SKILLED THERAPEUTIC INTERVENTION, ACTIVITY, EDUCATION, AND TRAINING TO ADDRESS;] Future Scheduled Test SIT TO/FRO M STAND TRANSFERS (PT/BEEF TAGGER) [code = SIT TO/FROM STAND TRANSFERS (PT/BEEF TAGGER)] Future Scheduled Test PT/BEEF TAGGER TO PROVIDE GAIT TRAINING FOR IMPROVED MOBILITY AND /OR TO NORMALIZE GAIT PATTERN [code = PT/BEEF TAGGER TO PROVIDE GAIT TRAINING FOR IMPROVED MOBILITY AND /OR TO NORMALIZE GAIT PATTERN] Future Scheduled Test PT/BEEF TAGGER TO PROVIDE STAIR TRAINING [code = PT/BEEF TAGGER TO PROVIDE STAIR TRAINING] Future Scheduled Test NEUROMUSCU LAR RE-EDUCATION / BALANCE / POSTURAL CONTROL (PT) [code = NEUROMUSCULAR RE-EDUCATION / BALANCE / POSTURAL CONTROL (PT)] Future Scheduled Test THERAPEUTI C EXERCISES AND ESTABLISHING A HOME EXERCISE PROGRAM (PT/BEEF TAGGER) [code = THERAPEUTIC EXERCISES AND ESTABLISHING A HOME EXERCISE PROGRAM (PT/BEEF TAGGER)] Future Scheduled Test PT/BEEF TAGGER TO IDENTIFY FALL RISK FACTORS; EDUCATE THE PATIENT/CAREGIVER ON WAYS TO REDUCE FALL RISK FACTORS AND ESTABLISH HOME EXERCISE PROGRAM TO MINIMIZE FALL RISK. MAY TEACH THE PATIENT FLOOR RECOVERY WHEN CLINICALLY APPROPRIATE [code = PT/BEEF TAGGER TO IDENTIFY FALL RISK FACTORS; EDUCATE THE PATIENT/CAREGIVER ON WAYS TO REDUCE FALL RISK FACTORS AND ESTABLISH HOME EXERCISE PROGRAM TO MINIMIZE FALL RISK. MAY TEACH THE PATIENT FLOOR RECOVERY WHEN CLINICALLY APPROPRIATE] Future Scheduled Test PT/BEEF TAGGER TO EDUCATE ON PELVIC FRACTURE SELF-MANAGEMENT PT/BEEF TAGGER MAY TEACH PATIENT HOW TO USE CRYOTHERAPY FOR PAIN UP TO 20 MIN AT A TIME 2 TO 3 TIMES A DAY OVER RPELVIC REGION [code = PT/BEEF TAGGER TO EDUCATE ON PELVIC FRACTURE SELF-MANAGEMENT PT/BEEF TAGGER MAY TEACH PATIENT HOW TO USE CRYOTHERAPY FOR PAIN UP TO 20 MIN AT A TIME 2 TO 3 TIMES A DAY OVER RPELVIC REGION] Future Scheduled Test PT TO ASSE SS / BEEF TAGGER TO MONITOR CARDIO/RESPIRATORY SYSTEM; AND NOTIFY THE PHYSICIAN AND/OR THE RN CLINICAL CERAMIC TILE INSTALLATION HELPER FOR PHYSICIAN NOTIFICATION FOR EARLY SIGNS AND SYMPTOMS OF EXACERBATION OR DETERIORATION. [code = PT TO ASSESS / BEEF TAGGER TO MONITOR CARDIO/RESPIRATORY SYSTEM; AND NOTIFY THE PHYSICIAN AND/OR THE RN CLINICAL CERAMIC TILE INSTALLATION HELPER FOR PHYSICIAN NOTIFICATION FOR EARLY SIGNS AND SYMPTOMS OF EXACERBATION OR DETERIORATION.] Future Scheduled Test PT TO ASSE SS / BEEF TAGGER TO MONITOR FOR AND REPORT EARLY SIGNS OF ANTICOAGULANT TOXICITY TO THE PHYSICIAN AND/OR THE RN CLINICAL CERAMIC TILE INSTALLATION HELPER FOR PHYSICIAN NOTIFICATION AND TO PROVIDE PATIENT/CAREGIVER EDUCATION ON ANTICOAGULANT THERAPY [code = PT TO ASSESS / BEEF TAGGER TO MONITOR FOR AND REPORT EARLY SIGNS OF ANTICOAGULANT TOXICITY TO THE PHYSICIAN AND/OR THE RN CLINICAL CERAMIC TILE INSTALLATION HELPER FOR PHYSICIAN NOTIFICATION AND TO PROVIDE PATIENT/CAREGIVER EDUCATION ON ANTICOAGULANT THERAPY] Future Scheduled Test PT / BEEF TAGGER M AY EDUCATE ON PAIN MANAGEMENT CLINICALLY INDICATED, INCLUDING NON-PHARMACOLOGICAL PAIN REDUCTION TECHNIQUES [code = PT / BEEF TAGGER MAY EDUCATE ON PAIN MANAGEMENT CLINICALLY INDICATED, INCLUDING NON-PHARMACOLOGICAL PAIN REDUCTION TECHNIQUES ] Future Scheduled Test PT / BEEF TAGGER T O INSTRUCT PATIENT/CAREGIVER ON RISK FOR HOSPITALIZATION/EMERGENCY ROOM VISITS, TEACH SIGNS AND SYMPTOMS THAT PUT PATIENT AT RISK, WHEN TO NOTIFY NURSE/PHYSICIAN OF COMPLICATIONS/DECLINE, AND WHEN TO CALL 911. [code = PT / BEEF TAGGER TO INSTRUCT PATIENT/CAREGIVER ON RISK FOR HOSPITALIZATION/EMERGENCY ROOM VISITS, TEACH SIGNS AND SYMPTOMS THAT PUT PATIENT AT RISK, WHEN TO NOTIFY NURSE/PHYSICIAN OF COMPLICATIONS/DECLINE, AND WHEN TO CALL 911.] Future Scheduled Test AGENCY MAY PERFORM A RESUMPTION OF CARE VISIT FOLLOWING ANY HOSPITAL ADMISSION. OT TO EVALUATE, OBSERVE / ASSESS, AND MONITOR, FORTINO TO OBSERVE AND MONITOR, PROVIDE SKILLED THERAPEUTIC INTERVENTION, ACTIVITY, EDUCATION, AND TRAINING TO ADDRESS SAFETY AND INDEPENDENCE OF ADLS AND FUNCTIONAL TRANSFERS. BATHING/SHOWERING (OT/HAND SPLITTER) ACTIVITIES OF DAILY LIVING (OT/FORTINO) BATH/SHOWER TRANSFER (OT/FORTINO) OT/FORTINO TO MONITOR AND EDUCATE ON OXYGEN SATURATION DURING ADLS/IADLS, NOTIFY PHYSICIAN AND/OR THE RN CLINICAL CERAMIC TILE INSTALLATION HELPER FOR PHYSICIAN NOTIFICATION AND IF O2 SATS BELOW 90% AFTER 10 MIN OF REST. OT/FORTINO MAY EDUCATE ON PAIN MANAGEMENT CLINICALLY INDICATED, INCLUDING NON-PHARMACOLOGICAL PAIN REDUCTION TECHNIQUES OT / HAND SPLITTER TO IDENTIFY FALL RISK FACTORS; EDUCATE THE PATIENT/CAREGIVER ON WAYS TO REDUCE FALL RISK FACTORS AND ESTABLISH HOME EXERCISE PROGRAM TO MINIMIZE FALL RISK. MAY TEACH THE PATIENT FLOOR RECOVERY WHEN CLINICALLY APPROPRIATE. OT/HAND SPLITTER TO EDUCATE ON HYPERTENSION SELF-MANAGEMENT [code = AGENCY MAY PERFORM A RESUMPTION OF CARE VISIT FOLLOWING ANY HOSPITAL ADMISSION. OT TO EVALUATE, OBSERVE / ASSESS, AND MONITOR, HAND SPLITTER TO OBSERVE AND MONITOR, PROVIDE SKILLED THERAPEUTIC INTERVENTION, ACTIVITY, EDUCATION, AND TRAINING TO ADDRESS SAFETY AND INDEPENDENCE OF ADLS AND FUNCTIONAL TRANSFERS. BATHING/SHOWERING (OT/HAND SPLITTER) ACTIVITIES OF DAILY LIVING (OT/FORTINO) BATH/SHOWER TRANSFER (OT/FORTINO) OT/FORTINO TO MONITOR AND EDUCATE ON OXYGEN SATURATION DURING ADLS/IADLS, NOTIFY PHYSICIAN AND/OR THE RN CLINICAL CERAMIC TILE INSTALLATION HELPER FOR PHYSICIAN NOTIFICATION AND IF O2 SATS BELOW 90% AFTER 10 MIN OF REST. OT/FORTINO MAY EDUCATE ON PAIN MANAGEMENT CLINICALLY INDICATED, INCLUDING NON-PHARMACOLOGICAL PAIN REDUCTION TECHNIQUES OT / HAND SPLITTER TO IDENTIFY FALL RISK FACTORS; EDUCATE THE PATIENT/CAREGIVER ON WAYS TO REDUCE FALL RISK FACTORS AND ESTABLISH HOME EXERCISE PROGRAM TO MINIMIZE FALL RISK. MAY TEACH THE PATIENT FLOOR RECOVERY WHEN CLINICALLY APPROPRIATE. OT/FORTINO TO EDUCATE ON HYPERTENSION SELF-MANAGEMENT] Goal Patient Goal - T O BE ABLE TO WALK NORMALLY AGAIN, I WAS VERY MOBILE BEFORE ALL OF THIS Goal Provider Goal - Goal Provider Goal - PT LTG: PATIENT WILL DEMONSTRATE IMPROVED ABILITY TO PERFORM SIT TO/FROM STAND TRANSFERS TO REDUCE THE RISK OF SKIN BREAKDOWN AND REDUCE FALL RISK FROM SBA WITH PWB TO FWW, TO INDEP WITH NO AD WITHIN 6 WEEKS. Goal Provider Goal - PT LTG: PATIENT WILL DEMONSTRATE REDUCED GAIT DEVIATIONS TO REDUCE THE RISK FOR FALLING AND MINIMIZE STRAIN ON KNEES/HIPS AND BACK EVIDENCED BY IMPROVED HEEL STRIKE AND CONTINUOUS STRIDES FROM SBA WITH PWB RLE WITH FWW, TO INDEP FWW X 150 FT WITHIN 6 WEEKS UPGRADED WBING STATUS ALLOWS TO SAFELY WALK ROOM TO ROOM THROUGHOUT THE HOME. PT LTG: PATIENT WILL DEMONSTRATE IMPROVED AMBULATION FROM SBA 40 FEET PWB WITH FWW AT EVAL, TO INDEPENDENT AMBULATION 150 FEET NO AD ONCE WBAT/FWB RLE STATUS TO RETURN TO PLOF WALKING IN THE HOME WITHIN SIX WEEKS PT LTG: PATIENT WILL DEMONSTRATE IMPROVED AMBULATION OUTSIDE OF HOME TO RETRIEVE MAIL FROM UNABLE AT EVAL, TO INDEP WITH SC OR NO AD WITHIN SIX WEEKS. Goal Provider Goal - PT LTG: PATIENT WILL DEMONSTRATE IMPROVED ABILITY TO SAFELY NEGOTIATE STAIRS FROM MIN ASSIST WITH FWW, TO INDEP USING DOOR FRAME IN ORDER TO SAFELY EXIT HOME FOR MD APPOINTMENTS AND COMMUNITY OUTINGS WITHIN 6 WEEKS. Goal Provider Goal - PT LTG: PATIENT WILL DEMONSTRATE REDUCED FALL RISK EVIDENCED BY TINETTI EXAM IMPROVED FROM TO WITHIN 6 WEEKS. Goal Provider Goal - PT STG: PATIENT WILL DEMONSTRATE PERFORMANCE OF HOME EXERCISE PROGRAM FOR LE STRENGTHENING EXERCISES WITH SBA USING HANDOUTS PROVIDED TO PROMOTE STRENGTHENING BETWEEN SESSIONS WITHIN 2 WEEKS PT LTG: PATIENT WILL DEMONSTRATE INCREASED STRENGTH OF R HIP AND KNEE FROM 3+/5 TO 4+/5 WITHIN 6 WEEKS IN ORDER TO IMPROVE GAIT AND STAIR INDEP. Goal Provider Goal - PT LTG: PATIENT/CAREGIVER WILL DEMONSTRATE ADHERENCE TO FALL REDUCTION SELF-MANAGEMENT AND REDUCING FALL RISK FACTORS TO MINIMIZE FALL RISK BY END OF EPISODE . Goal Provider Goal - PT GOAL: PATIENT WILL DEMONSTRATE OPTIMAL OUTCOMES INCLUDING DECREASED PAIN WITH NO COMPLICATIONS FOLLOWING PELVIC FRACTURE BY END OF EPISODE. Goal Provider Goal - PT LTG: PATIENT WILL NOT EXPERIENCE CARDIAC OR RESPIRATORY COMPLICATIONS THROUGHOUT THE EPISODE OF CARE. Goal Provider Goal - PT LTG: PATIENT WILL NOT EXHIBIT SIGNS AND SYMPTOMS OF ANTICOAGULANT TOXICITY THROUGHOUT EPISODE OF CARE. Goal Provider Goal - PT GOAL: PATIENT WILL DEMONSTRATE UNDERSTANDING OF PAIN MANAGEMENT TECHNIQUES WITHIN 6 WEEKS Goal Provider Goal - PT GOAL: PATIENT/CAREGIVER WILL VERBALIZE UNDERSTANDING OF SIGNS AND SYMPTOMS THAT PUT THE PATIENT AT RISK FOR HOSPITALIZATION /EMERGENCY ROOM VISITS, WHEN TO NOTIFY NURSE/PHYSICIAN OF COMPLICATIONS/DECLINE AND WHEN TO CALL 911. Goal Provider Goal - OT STG: PATIENT WILL PERFORM BATHING IN SHOWER WITH SBA WITH USE OF AE NEEDED WITHIN 2 WEEKS. OT LTG: PATIENT WILL DEMONSTRATE IMPROVED ABILITY TO PERFORM BATHING/SHOWERING AND REDUCE CAREGIVER BURDEN FROM UNABLE TO SUP WITHIN 3 WEEKS. OT LTG: PATIENT WILL DEMONSTRATE IMPROVEMENT IN MODIFIED RUBIN INDEX SCORE FROM 91 TO 94 INDICATING DECREASED DEPENDENCY ON CAREGIVER ASSISTANCE WITH ACTIVITIES OF DAILY LIVING WITHIN 3 WEEKS. OT STG: PATIENT WILL SAFELY COMPLETE SHOWER TRANSFER WITH SBA WITH USE OF AE/COMP STRATEGIES NEEDED WITHIN 2 WEEKS. OT LTG: PATIENT WILL DEMONSTRATE IMPROVED ABILITY AND SAFETY TO PERFORM BATH/SHOWER TRANSFER FROM UNABLE TO SUP WITHIN 3 WEEKS. OT LTG: PATIENT WILL MAINTAIN OXYGEN SATURATION WITHIN PHYSICIAN ORDERED PARAMETERS THROUGHOUT THE EPISODE OF CARE. OT LTG: PATIENT WILL DEMONSTRATE UNDERSTANDING OF PAIN MANAGEMENT TECHNIQUES EVIDENCED BY CONTINUOUS REDUCED PAIN AT 1/10 WITHIN 3 WEEKS. OT LTG: PATIENT/CAREGIVER WILL BE ABLE TO IMPLEMENT RECOMMENDATIONS SPECIFIC TO FALL REDUCTION FOR IMPROVED ADL/IADL COMPLETION AND HOME SAFETY BY END OF EPISODE. OT LTG: PATIENT WILL BE INDEPENDENT WITH IMPLEMENTATION OF HEP WITHIN 3 WEEKS. OT GOAL: PATIENT/CAREGIVER WILL BE ABLE TO IDENTIFY SIGNS OF EXACERBATION OF HYPERTENSION AND WILL VERBALIZE/DEMONSTRATE AN ABILITY TO ADHERE TO HYPERTENSION SELF-MANAGEMENT AND LIFE-STYLE CHANGES BY END OF EPISODE. Encounters Start Date/Time End Date/Time Encounter Type Admission Type Attending [facility] Care Department Encounter ID Discharge Date Discharge Status Discharge Condition Discharge Reason Percent Goals Met 2024-03-14:00:00 2024-05-12 00:00:00 Outpatient NEW ADMISSION [facility] [id number] 13.04
--- OUTSIDE RECORDS SUMMARY | 2024-03-31 08:52 | XMS_ITS | Clinical Summary ---
Author Organization [facility] Address [address] [place] [address] Phone Care Team Providers Care Mental Retardation Nurse Name Role Phone Monie Bruno MD Primary Care Provider [phone] Maggie Pace MD Unavailable Allergies No known active allergies Medications amLODIPine (NORVASC) 5 MG Tablet 5 mg. 8 Active lisinopril (PRINIVIL, ZESTRIL) 20 MG Tablet 20 mg. 8 Active losartan (COZAAR) 50 MG Tablet Take 50 mg by mouth daily. 3 Active Cholecalciferol (Vitamin D3) 10 MCG (400 UNIT) Capsule Take 1 Capsule by mouth daily. 90 Capsule 1 3 Active alendronate (FOSAMAX) 70 MG TabletIndicatio ns:Osteoporosis of lumbar spine,Hyperpara thyroidism (HCC) TAKE ONE TABLET BY MOUTH EVERY 7 DAYS 12 Tablet 3 4 Active Additional Information Patient not taking.Reported on 02/04/2024 oxybutynin (DITROPAN) 5 MG Tablet Take 5 mg by mouth 2 times daily. Active Active Problems Problem Noted Date Diagnosed Date Vitamin D insufficiency 12/14/2018 Osteoporosis of lumbar spine 06/12/2018 Hyperparathyroidism 06/12/2018 Hypercalcemia 06/12/2018 Encounters Date Type Department Care Team Description 02/04/2024 9:00 AM SMASH FIXER Office Visit [facility] - Endocrinology - [address] [place] [address] Maggie Pace MD Hyperparathyroidism (HCC) (Primary Dx); Vitamin D insufficiency Discharge Disposition: Discharged to home or Selfcare 02/04/2024 Travel from Last 3 Months Immunizations Immunization Administration Dates Next Due Hepatitis A Vaccine, Pediatric/adolescent, 2 Dose Schedule 02/24/1999 Influenza Vaccine greater than 3 yrs 11/17/2018 Influenza, High-dose, Quadrivalent 11/11/2019 Influenza, Quadrivalent, Adjuvanted 11/28/2021,1 Influenza, Trivalent, Adjuvanted, PF 11/16/2017, 12/01/2016 Influenza, high-dose, trivalent, PF 10/17,11/16/2018,11/05/2015,2014 Pneumococcal Vaccine - 13 Valent 08/15/2015 TD VACCINE 02/24/1999 Zoster Vaccine Recombinant 10/01/2017,07/19/2017 Family History Medical History Relation Name Comments Diabetes Brother Aneurysm Father Hypertension Father Chronic Obstructive Pulmonary Disease Mother Hypertension Mother Arthritis Sister Cerebral Palsy Sister Relation Name Status Comments Brother Alive Father Mother Sister Alive Social History Tobacco Use Types Packs/Day Years Used Date Smoking Tobacco: Never Smokeless Tobacco: Never Tobacco Cessation:Counseling Given: Not Answered Alcohol Use Standard Drinks/Week Comments No 0 (1 standard drink = 0.6 oz pur e alcohol) Sexually Active Control Partners Comments Yes Male Comments No Sex and Gender Information Value Date Recorded Sex Assigned at Not on file Legal Sex Female 9:32 PM CDT Gender Identity Not on file Sexual Orientation Not on file Last Filed Vital Signs Vital Sign Reading Time Taken Comments Blood Pressure 122/78 02/04/2024 8:43 AM SMASH FIXER Pulse 62 02/04/2024 8:43 AM SMASH FIXER Temperature 36.4 C (97.6 F) 02/04/2024 8:43 AM SMASH FIXER Respiratory Rate 18 02/04/2024 8:43 AM SMASH FIXER Oxygen Saturation 97% 02/04/2024 8:43 AM SMASH FIXER Inhaled Oxygen Concentration - - Weight 68 kg (150 lb) 02/04/2024 8:43 AM SMASH FIXER Height 157.5 cm (5' 2 ) 01/01/2022 2:00 PM SMASH FIXER Body Mass Index 27.44 01/01/2022 2:00 PM SMASH FIXER Plan of Treatment Upcoming Encounters Date Type Department Care Team (Late st Contact Info) Description 08/11/2024 9:00 AM CDT Office Visit [facility] - Endocrinology - [place] [address] [place] [address] Maggie Pace MD [address] [phone] Health Maintenance Due Date Last Done Comments Hepatitis C Virus (HCV) Screening 1945 TdaP Immunization 1945 Pneumococcal Immunization (50+ years) (2 of 2 - PPSV23) 08/14/2016 08/15/2015 DEXA Bone Density 10/31/2021 11/01/2019, , 11/28/2012 SARS-COV-2 Immunization ( season) 2023 12/10/2021, 12/07/2020, 05/09/2020, Additional history exists DTaP/Tdap/Td Immunization Discontinued 02/24/1999 Pneumococcal Immunization Combined Discontinued 08/15/2015 Zoster Immunization Completed 10/01/2017, 8 Respiratory Syncytial Virus (RSV) Immunization (Adult) Completed 12/27/2022 Influenza Immunization Completed , 12/14/2022, 11/28/2021, Additional history exists Hepatitis B Immunization Aged Out No longer eligible based on patient's age to complete this topic Meningococcal Immunization (ACWY) Aged Out No longer eligible based on patient's age to complete this topic Rotavirus Immunization Aged Out No lo nger eligible based on patient's age to complete this topic Procedures Procedure Name Priority Date/Time Associated Diagnosis Comments DEXA SCAN Routine 11/01/2019 from Last 3 Months or Most Recently Relevant to Health Maintenance Results * DEXA SCAN (11/01/2019) Anatomical Region Laterality Modality Other us Monie Bruno MD [place] - IMAGING Final Result from Last 3 Months or Most Recently Relevant to Health Maintenance Insurance MEDICARE C [employer]ET[employer] Care Teams Mental Retardation Nurse Relationship Specialty Start Date End Date Monie Bruno MD [address] [place], [place] [phone] PCP - General Family Medicine 07/28/17 Maggie Pace MD [address] [phone] Consulting Physician Endocrinology 12/24/21
--- OUTSIDE RECORDS SUMMARY | 2024-03-31 08:52 | XMS_ITS | Continuity of Care Document ---
Author Organization formerly [facility] Address [address] [place] [address] Phone Care Team Providers Care Insulation Board Back Tender Name Role Phone Fish Lazar Unavailable Unavailable Procedures Procedure Date Office/outpatient Visit, Est Office/outpatient Visit, Est Office/outpatient Visit, Est Office/outpatient Visit, Est Office/outpatient Visit, Est Office/outpatient Visit, New Advance Directives Directive Yes / No Effective Date File Name No Information Encounters Encounter Description Practice Location Reason(s) For Visit Diagnoses Date Provider Providers Copied on Encounter Office/outpat ient Visit, [facility], [address] [place] [address] [address], [place], [place], [id number], [place] tel:[phone] [facility] No Information 0 Nagi Whitten. [address] [place], [place] [address]ate [place] , [address], [place], [place], [facility], [place]. tel:[phone] Office/outpat ient Visit, [facility], [address], [place], [place], [id number], [place] tel:[phone] [facility] No Information 0 Sabiha Joy. [address] [facility] [address], [place], [place], [facility], . tel:[phone] Office/outpat ient Visit, [facility], [address] [place] [address] [address], [place], [place], [id number], [place] tel:[phone] [facility] No Information 0- 0 Krishnasamy Rufino. [address] [facility] [address], [address], [place]. tel:[phone] Office/outpat ient Visit, [facility], [address], [place], [place], [id number], [place] tel:[phone] [facility] No Information 3- 0 Krishnasamy Rufino. [address] [place] [address], [facility], [place]. tel:[phone] Office/outpat ient Visit, [facility], [address], [place], [place], [id number], [place] tel:[phone] [facility] No Information 0- 0 Krishnasamy Rufino. [address] [place] [address], [facility], [place]. tel:[phone] Office/outpat ient Visit, [facility], [address] [place] [address] [address], [place], [place], [id number], [place] tel:[phone] [facility] No Information 0 Krishnasamy Rufino. [address] [place] [address], [facility], [place]. tel:[phone] Family History Family Member Type Diagnosis Age At Onset No Information Payers Payer name Insurance type Covered constitution party ID Authoriza tion(s) No Information Social History [...]
--- OUTSIDE RECORDS SUMMARY | 2024-03-31 08:52 | XMS_ITS | Clinical Summary ---
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, RIGHT PELVIS, 7THD Active 03-08 00:00: 00 MUSCLE WEAKNESS (GENERALIZED ) Active 02-15 00:00: 00 ESSENTIAL (PRIMARY) HYPERTENSION Active 02-15 00:00: 00 OTHER CHRONIC PAIN Active 02-15 00:00: 00 DORSALGIA, UNSPECIFIED Active 02-15 00:00: 00 RESIDENTIAL (CURRENT) USE OF ANTICOAGULAN TS Active 02-15 [...] 5 mg tablet 02-23 00:00: 00 Yes [id number] OVERACTIVE BLADDER 1 tablet DAILY 1 tablet DAILY (route: oral) Med Classific ation: Genitouri nary Therapy amlodipine 5 mg tablet 02-15 00:00: 00 Yes [id number] HIGH BLOOD PRESSURE 1 tablet DAILY 1 tablet DAILY (route: oral) Med Classific ation: Cardiovas cular Therapy Agents Artificial Tears (carboxymet hylcellulos e) 1 % eye drops 02-15 00:00: 00 Yes [id number] NEEDED FOR DRY EYES 1 drops DAILY 1 drops DAILY (route: ophthalmic (eye)) Alternate Route: EACH EYE. Med Classific ation: Ophthalmi c Agents cholecalcif yun (vitamin D3) 1,250 mcg (50,000 unit) tablet 02-15 00:00: 00 Yes [id number] SUPPLEMENT 1 tablet WEEKLY 1 tablet WEEKLY (route: oral) Med Classific ation: Electroly te Balance-N utritiona l Products cholecalcif yun (vitamin D3) 125 mcg (5,000 unit) capsule 02-15 00:00: 00 Yes [id number] SUPPLEMENT 1 capsule DAILY 1 capsule DAILY (route: oral) Med Classific ation: Electroly te Balance-N utritiona l Products diltiazem CD 180 mg capsule,ext ended release 24 hr 03-08 00:00: 00 Yes [id number] HEART HEALTH 1 capsule DAILY 1 capsule DAILY (route: oral) Med Classific ation: Cardiovas cular Therapy Agents Eliquis 5 mg tablet 03-04 00:00: 00 Yes [id number] BLOOD THINNER 1 tablet 2 TIMES DAILY 1 tablet 2 TIMES DAILY (route: oral) Med Classific ation: Hematolog ical Agents losartan 50 mg tablet 03-04 00:00: 00 Yes [id number] HYPERTENSIO N 1 tablet DAILY 1 tablet DAILY (route: oral) Med Classific ation: Cardiovas cular Therapy Agents pantoprazol e 40 mg tablet,maddy yed release 02-15 00:00: 00 Yes [id number] REFLUX 1 tablet BEDTIME 1 tablet BEDTIME [...] TO EVALUATE, OBSERVE / ASSESS, AND MONITOR, MAILING SPECIALIST TO OBSERVE AND MONITOR, PROVIDE SKILLED THERAPEUTIC INTERVENTION, ACTIVITY, EDUCATION, AND TRAINING TO ADDRESS; [code = AGENCY MAY PERFORM A RESUMPTION OF CARE VISIT FOLLOWING ANY HOSPITAL ADMISSION. PT TO EVALUATE, OBSERVE / ASSESS, AND MONITOR, MAILING SPECIALIST TO OBSERVE AND MONITOR, PROVIDE SKILLED THERAPEUTIC INTERVENTION, ACTIVITY, EDUCATION, AND TRAINING TO ADDRESS;] Future Scheduled Test SIT TO/FRO M STAND TRANSFERS (PT/MAILING SPECIALIST) [code = SIT TO/FROM STAND TRANSFERS (PT/MAILING SPECIALIST)] Future Scheduled Test PT/MAILING SPECIALIST TO PROVIDE GAIT TRAINING FOR IMPROVED MOBILITY AND /OR TO NORMALIZE GAIT PATTERN [code = PT/MAILING SPECIALIST TO PROVIDE GAIT TRAINING FOR IMPROVED MOBILITY AND /OR TO NORMALIZE GAIT PATTERN] Future Scheduled Test PT/MAILING SPECIALIST TO PROVIDE STAIR TRAINING [code = PT/MAILING SPECIALIST TO PROVIDE STAIR TRAINING] Future Scheduled Test NEUROMUSCU LAR RE-EDUCATION / BALANCE / POSTURAL CONTROL (PT) [code = NEUROMUSCULAR RE-EDUCATION / BALANCE / POSTURAL CONTROL (PT)] Future Scheduled Test THERAPEUTI C EXERCISES AND ESTABLISHING A HOME EXERCISE PROGRAM (PT/MAILING SPECIALIST) [code = THERAPEUTIC EXERCISES AND ESTABLISHING A HOME EXERCISE PROGRAM (PT/MAILING SPECIALIST)] Future Scheduled Test PT/MAILING SPECIALIST TO IDENTIFY FALL RISK FACTORS; EDUCATE THE PATIENT/CAREGIVER ON WAYS TO REDUCE FALL RISK FACTORS AND ESTABLISH HOME EXERCISE PROGRAM TO MINIMIZE FALL RISK. MAY TEACH THE PATIENT FLOOR RECOVERY WHEN CLINICALLY APPROPRIATE [code = PT/MAILING SPECIALIST TO IDENTIFY FALL RISK FACTORS; EDUCATE THE PATIENT/CAREGIVER ON WAYS TO REDUCE FALL RISK FACTORS AND ESTABLISH HOME EXERCISE PROGRAM TO MINIMIZE FALL RISK. MAY TEACH THE PATIENT FLOOR RECOVERY WHEN CLINICALLY APPROPRIATE] Future Scheduled Test PT/MAILING SPECIALIST TO EDUCATE ON PELVIC FRACTURE SELF-MANAGEMENT PT/MAILING SPECIALIST MAY TEACH PATIENT HOW TO USE CRYOTHERAPY FOR PAIN UP TO 20 MIN AT A TIME 2 TO 3 TIMES A DAY OVER RPELVIC REGION [code = PT/MAILING SPECIALIST TO EDUCATE ON PELVIC FRACTURE SELF-MANAGEMENT PT/MAILING SPECIALIST MAY TEACH PATIENT HOW TO USE CRYOTHERAPY FOR PAIN UP TO 20 MIN AT A TIME 2 TO 3 TIMES A DAY OVER RPELVIC REGION] Future Scheduled Test PT TO ASSE SS / MAILING SPECIALIST TO MONITOR CARDIO/RESPIRATORY SYSTEM; AND NOTIFY THE PHYSICIAN AND/OR THE RN CLINICAL DIE CUTTER FOR PHYSICIAN NOTIFICATION FOR EARLY SIGNS AND SYMPTOMS OF EXACERBATION OR DETERIORATION. [code = PT TO ASSESS / MAILING SPECIALIST TO MONITOR CARDIO/RESPIRATORY SYSTEM; AND NOTIFY THE PHYSICIAN AND/OR THE RN CLINICAL DIE CUTTER FOR PHYSICIAN NOTIFICATION FOR EARLY SIGNS AND SYMPTOMS OF EXACERBATION OR DETERIORATION.] Future Scheduled Test PT TO ASSE SS / MAILING SPECIALIST TO MONITOR FOR AND REPORT EARLY SIGNS OF ANTICOAGULANT TOXICITY TO THE PHYSICIAN AND/OR THE RN CLINICAL DIE CUTTER FOR PHYSICIAN NOTIFICATION AND TO PROVIDE PATIENT/CAREGIVER EDUCATION ON ANTICOAGULANT THERAPY [code = PT TO ASSESS / MAILING SPECIALIST TO MONITOR FOR AND REPORT EARLY SIGNS OF ANTICOAGULANT TOXICITY TO THE PHYSICIAN AND/OR THE RN CLINICAL DIE CUTTER FOR PHYSICIAN NOTIFICATION AND TO PROVIDE PATIENT/CAREGIVER EDUCATION ON ANTICOAGULANT THERAPY] Future Scheduled Test PT / MAILING SPECIALIST M AY EDUCATE ON PAIN MANAGEMENT CLINICALLY INDICATED, INCLUDING NON-PHARMACOLOGICAL PAIN REDUCTION TECHNIQUES [code = PT / MAILING SPECIALIST MAY EDUCATE ON PAIN MANAGEMENT CLINICALLY INDICATED, INCLUDING NON-PHARMACOLOGICAL PAIN REDUCTION TECHNIQUES ] Future Scheduled Test PT / MAILING SPECIALIST T O INSTRUCT PATIENT/CAREGIVER ON RISK FOR HOSPITALIZATION/EMERGENCY ROOM VISITS, TEACH SIGNS AND SYMPTOMS THAT PUT PATIENT AT RISK, WHEN TO NOTIFY NURSE/PHYSICIAN OF COMPLICATIONS/DECLINE, AND WHEN TO CALL 911. [code = PT / MAILING SPECIALIST TO INSTRUCT PATIENT/CAREGIVER ON RISK FOR HOSPITALIZATION/EMERGENCY [...] INDEPENDENCE OF ADLS AND FUNCTIONAL TRANSFERS. BATHING/SHOWERING (OT/LANDFILL GAS COLLECTION OPERATOR) ACTIVITIES OF DAILY LIVING (OT/FORTINO) BATH/SHOWER TRANSFER (OT/FORTINO) OT/FORTINO TO MONITOR AND EDUCATE ON OXYGEN SATURATION DURING ADLS/IADLS, NOTIFY PHYSICIAN AND/OR THE RN CLINICAL DIE CUTTER FOR PHYSICIAN NOTIFICATION AND IF O2 SATS BELOW 90% AFTER 10 MIN OF REST. OT/FORTINO MAY EDUCATE ON PAIN MANAGEMENT CLINICALLY INDICATED, INCLUDING NON-PHARMACOLOGICAL PAIN REDUCTION TECHNIQUES OT / LANDFILL GAS COLLECTION OPERATOR TO IDENTIFY FALL RISK FACTORS; EDUCATE THE PATIENT/CAREGIVER ON WAYS TO REDUCE FALL RISK FACTORS AND ESTABLISH HOME EXERCISE PROGRAM TO MINIMIZE FALL RISK. MAY TEACH THE PATIENT FLOOR RECOVERY WHEN CLINICALLY APPROPRIATE. OT/LANDFILL GAS COLLECTION OPERATOR TO EDUCATE ON HYPERTENSION SELF-MANAGEMENT [code = AGENCY MAY PERFORM A RESUMPTION OF CARE VISIT FOLLOWING ANY HOSPITAL ADMISSION. OT TO EVALUATE, OBSERVE / ASSESS, AND MONITOR, LANDFILL GAS COLLECTION OPERATOR TO OBSERVE AND MONITOR, PROVIDE SKILLED THERAPEUTIC INTERVENTION, ACTIVITY, EDUCATION, AND TRAINING TO ADDRESS SAFETY AND INDEPENDENCE OF ADLS AND FUNCTIONAL TRANSFERS. BATHING/SHOWERING (OT/LANDFILL GAS COLLECTION OPERATOR) ACTIVITIES OF DAILY LIVING (OT/FORTINO) BATH/SHOWER TRANSFER (OT/FORTINO) OT/FORTINO TO MONITOR AND EDUCATE ON OXYGEN SATURATION DURING ADLS/IADLS, NOTIFY PHYSICIAN AND/OR THE RN CLINICAL DIE CUTTER FOR PHYSICIAN NOTIFICATION AND IF O2 SATS BELOW 90% AFTER 10 MIN OF REST. OT/FORTINO MAY EDUCATE ON PAIN MANAGEMENT CLINICALLY INDICATED, INCLUDING NON-PHARMACOLOGICAL PAIN REDUCTION TECHNIQUES OT / LANDFILL GAS COLLECTION OPERATOR TO IDENTIFY FALL RISK FACTORS; EDUCATE THE [...] End Date/Time Encounter Type Admission Type Attending [facility] Care Department Encounter ID Discharge Date Discharge Status Discharge Condition Discharge Reason Percent Goals Met 2024-03-14:00:00 2024-05-12 00:00:00 Outpatient NEW ADMISSION [facility] [id number] 13.04
--- OUTSIDE RECORDS SUMMARY | 2024-03-31 08:53 | XMS_ITS | Encounter Summary ---
Author Organization [facility] Address [address] [place] [address] Phone Care Team Providers Care Radiology Asst Name Role Phone Monie Bruno MD Primary Care Provider [phone] Maggie Pace MD Unavailable Reason for Visit * Reason Comments Medication Refill Encounter Details Date Type Department Care Team (Late st Contact Info) Description 03/31/2022 Refill [facility] - Endocrin[facility] [address] [place] [address] Maggie Pace MD [address] [address] Medication Refill Social History Tobacco Use Types Packs/Day Years Used Date Smoking Tobacco: Never Smokeless Tobacco: Never Alcohol Use Standard Drinks/Week Comments No 0 (1 standard drink = 0.6 oz pur e alcohol) Sexually Active Control Partners Comments Yes Male Comments No Sex and Gender Information Value Date Recorded Sex Assigned at Not on file Legal Sex Female 9:32 PM CDT Gender Identity Not on file Sexual Orientation Not on file documented as of this encounter Miscellaneous Notes * Telephone Encounter - Li Bishop RN - 03/31/2022 3:24 PM PUBLIC TRANSIT SPECIALIST Requested Prescriptions Pending Prescriptions Disp Refills ??? alendronate (FOSAMAX) 70 MG Tablet [Pharmacy Med Name: ALENDRONATE SODIUM 70 MG TAB] 12 Tablet 3 Sig: TAKE ONE TABLET BY MOUTH EVERY 7 DAYS Next appt: 12/31/2022 IC TRANSIT SPECIALIST documented in this encounter Plan of Treatment Upcoming Encounters Date Type Department Care Team (Late st Contact Info) Description 08/11/2024 9:00 AM CDT Office Visit [facility] - Endocrinology - [place] [address] [place] [address] Maggie Pace MD [address] [address] documented as of this encounter Visit Diagnoses Diagnosis Osteoporosis of lumbar spine Hyperparathyroidism (HCC) Hyperparathyroidism, unspecified documented in this encounter Care Teams Radiology Asst Relationship Specialty Start Date End Date Monie Bruno MD [address] [place] [address] PCP - General Family Medicine 07/28/17 Maggie Pace MD [address] [address] Consulting Physician Endocrinology 12/24/21 documented as of this encounter
--- OUTSIDE RECORDS SUMMARY | 2024-03-31 08:53 | XMS_ITS | Encounter Summary ---
Author Organization [facility] Address [address] [place] [place] [address] Phone Care Team Providers Care Collect On Delivery Clerk Name Role Phone Monie Bruno MD Primary Care Provider [phone] Maggie Pace MD Unavailable Reason for Visit * Reason Comments Medication Refill Encounter Details Date Type Department Care Team (Late st Contact Info) Description 03/17/2023 Refill [facility] Endocr[facility] [address] [place] [address] Maggie Pace MD [address] [address] Medication Refill Social History Tobacco [...] Telephone Encounter - Li Bishop RN - 03/17/2023 8:25 AM FIXING MACHINE OPERATOR Requested Prescriptions Pending Prescriptions Disp Refills ??? alendronate (FOSAMAX) 70 MG Tablet [Pharmacy Med Name: ALENDRONATE SODIUM 70 MG TAB] 12 Tablet 3 Sig: TAKE ONE TABLET BY MOUTH EVERY 7 DAYS Next appt: 02/04/2024 NG MACHINE OPERATOR documented in this encounter Plan of Treatment Upcoming Encounters Date Type Department Care Team (Late st Contact Info) Description 08/11/2024 9:00 AM CDT Office Visit [facility] - Endocrinology - [place] [address] [place] [address] Maggie Pace MD [address] [address] documented as of this encounter Visit Diagnoses Diagnosis Osteoporosis of lumbar spine Hyperparathyroidism (HCC) Hyperparathyroidism, unspecified documented in this encounter Care Teams Collect On Delivery Clerk Relationship Specialty Start Date End Date Monie Bruno MD [address] [place] [address] PCP - General Family Medicine 07/28/17 Maggie Pace MD [address] [address] Consulting Physician Endocrinology 12/24/21 documented as of this encounter
--- OUTSIDE RECORDS SUMMARY | 2024-03-31 08:53 | XMS_ITS | Clinical Summary ---
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, RIGHT PELVIS, 7THD Active 03-08 00:00: 00 MUSCLE WEAKNESS (GENERALIZED ) Active 02-15 00:00: 00 ESSENTIAL (PRIMARY) HYPERTENSION Active 02-15 00:00: 00 OTHER CHRONIC PAIN Active 02-15 00:00: 00 DORSALGIA, UNSPECIFIED Active 02-15 00:00: 00 FPC (CURRENT) USE OF ANTICOAGULAN TS Active 02-15 [...] 5 mg tablet 02-23 00:00: 00 Yes [id number] OVERACTIVE BLADDER 1 tablet DAILY 1 tablet DAILY (route: oral) Med Classific ation: Genitouri nary Therapy amlodipine 5 mg tablet 02-15 00:00: 00 Yes [id number] HIGH BLOOD PRESSURE 1 tablet DAILY 1 tablet DAILY (route: oral) Med Classific ation: Cardiovas cular Therapy Agents Artificial Tears (carboxymet hylcellulos e) 1 % eye drops 02-15 00:00: 00 Yes [id number] NEEDED FOR DRY EYES 1 drops DAILY 1 drops DAILY (route: ophthalmic (eye)) Alternate Route: EACH EYE. Med Classific ation: Ophthalmi c Agents cholecalcif yun (vitamin D3) 1,250 mcg (50,000 unit) tablet 02-15 00:00: 00 Yes [id number] SUPPLEMENT 1 tablet WEEKLY 1 tablet WEEKLY (route: oral) Med Classific ation: Electroly te Balance-N utritiona l Products cholecalcif yun (vitamin D3) 125 mcg (5,000 unit) capsule 02-15 00:00: 00 Yes [id number] SUPPLEMENT 1 capsule DAILY 1 capsule DAILY (route: oral) Med Classific ation: Electroly te Balance-N utritiona l Products diltiazem CD 180 mg capsule,ext ended release 24 hr 03-08 00:00: 00 Yes [id number] HEART HEALTH 1 capsule DAILY 1 capsule DAILY (route: oral) Med Classific ation: Cardiovas cular Therapy Agents Eliquis 5 mg tablet 03-04 00:00: 00 Yes [id number] BLOOD THINNER 1 tablet 2 TIMES DAILY 1 tablet 2 TIMES DAILY (route: oral) Med Classific ation: Hematolog ical Agents losartan 50 mg tablet 03-04 00:00: 00 Yes [id number] HYPERTENSIO N 1 tablet DAILY 1 tablet DAILY (route: oral) Med Classific ation: Cardiovas cular Therapy Agents pantoprazol e 40 mg tablet,maddy yed release 02-15 00:00: 00 Yes [id number] REFLUX 1 tablet BEDTIME 1 tablet BEDTIME [...] TO EVALUATE, OBSERVE / ASSESS, AND MONITOR, PROGRAM CHECKER TO OBSERVE AND MONITOR, PROVIDE SKILLED THERAPEUTIC INTERVENTION, ACTIVITY, EDUCATION, AND TRAINING TO ADDRESS; [code = AGENCY MAY PERFORM A RESUMPTION OF CARE VISIT FOLLOWING ANY HOSPITAL ADMISSION. PT TO EVALUATE, OBSERVE / ASSESS, AND MONITOR, PROGRAM CHECKER TO OBSERVE AND MONITOR, PROVIDE SKILLED THERAPEUTIC INTERVENTION, ACTIVITY, EDUCATION, AND TRAINING TO ADDRESS;] Future Scheduled Test SIT TO/FRO M STAND TRANSFERS (PT/PROGRAM CHECKER) [code = SIT TO/FROM STAND TRANSFERS (PT/PROGRAM CHECKER)] Future Scheduled Test PT/PROGRAM CHECKER TO PROVIDE GAIT TRAINING FOR IMPROVED MOBILITY AND /OR TO NORMALIZE GAIT PATTERN [code = PT/PROGRAM CHECKER TO PROVIDE GAIT TRAINING FOR IMPROVED MOBILITY AND /OR TO NORMALIZE GAIT PATTERN] Future Scheduled Test PT/PROGRAM CHECKER TO PROVIDE STAIR TRAINING [code = PT/PROGRAM CHECKER TO PROVIDE STAIR TRAINING] Future Scheduled Test NEUROMUSCU LAR RE-EDUCATION / BALANCE / POSTURAL CONTROL (PT) [code = NEUROMUSCULAR RE-EDUCATION / BALANCE / POSTURAL CONTROL (PT)] Future Scheduled Test THERAPEUTI C EXERCISES AND ESTABLISHING A HOME EXERCISE PROGRAM (PT/PROGRAM CHECKER) [code = THERAPEUTIC EXERCISES AND ESTABLISHING A HOME EXERCISE PROGRAM (PT/PROGRAM CHECKER)] Future Scheduled Test PT/PROGRAM CHECKER TO IDENTIFY FALL RISK FACTORS; EDUCATE THE PATIENT/CAREGIVER ON WAYS TO REDUCE FALL RISK FACTORS AND ESTABLISH HOME EXERCISE PROGRAM TO MINIMIZE FALL RISK. MAY TEACH THE PATIENT FLOOR RECOVERY WHEN CLINICALLY APPROPRIATE [code = PT/PROGRAM CHECKER TO IDENTIFY FALL RISK FACTORS; EDUCATE THE PATIENT/CAREGIVER ON WAYS TO REDUCE FALL RISK FACTORS AND ESTABLISH HOME EXERCISE PROGRAM TO MINIMIZE FALL RISK. MAY TEACH THE PATIENT FLOOR RECOVERY WHEN CLINICALLY APPROPRIATE] Future Scheduled Test PT/PROGRAM CHECKER TO EDUCATE ON PELVIC FRACTURE SELF-MANAGEMENT PT/PROGRAM CHECKER MAY TEACH PATIENT HOW TO USE CRYOTHERAPY FOR PAIN UP TO 20 MIN AT A TIME 2 TO 3 TIMES A DAY OVER RPELVIC REGION [code = PT/PROGRAM CHECKER TO EDUCATE ON PELVIC FRACTURE SELF-MANAGEMENT PT/PROGRAM CHECKER MAY TEACH PATIENT HOW TO USE CRYOTHERAPY FOR PAIN UP TO 20 MIN AT A TIME 2 TO 3 TIMES A DAY OVER RPELVIC REGION] Future Scheduled Test PT TO ASSE SS / PROGRAM CHECKER TO MONITOR CARDIO/RESPIRATORY SYSTEM; AND NOTIFY THE PHYSICIAN AND/OR THE RN CLINICAL UNDERWEAR HEMMER FOR PHYSICIAN NOTIFICATION FOR EARLY SIGNS AND SYMPTOMS OF EXACERBATION OR DETERIORATION. [code = PT TO ASSESS / PROGRAM CHECKER TO MONITOR CARDIO/RESPIRATORY SYSTEM; AND NOTIFY THE PHYSICIAN AND/OR THE RN CLINICAL UNDERWEAR HEMMER FOR PHYSICIAN NOTIFICATION FOR EARLY SIGNS AND SYMPTOMS OF EXACERBATION OR DETERIORATION.] Future Scheduled Test PT TO ASSE SS / PROGRAM CHECKER TO MONITOR FOR AND REPORT EARLY SIGNS OF ANTICOAGULANT TOXICITY TO THE PHYSICIAN AND/OR THE RN CLINICAL UNDERWEAR HEMMER FOR PHYSICIAN NOTIFICATION AND TO PROVIDE PATIENT/CAREGIVER EDUCATION ON ANTICOAGULANT THERAPY [code = PT TO ASSESS / PROGRAM CHECKER TO MONITOR FOR AND REPORT EARLY SIGNS OF ANTICOAGULANT TOXICITY TO THE PHYSICIAN AND/OR THE RN CLINICAL UNDERWEAR HEMMER FOR PHYSICIAN NOTIFICATION AND TO PROVIDE PATIENT/CAREGIVER EDUCATION ON ANTICOAGULANT THERAPY] Future Scheduled Test PT / PROGRAM CHECKER M AY EDUCATE ON PAIN MANAGEMENT CLINICALLY INDICATED, INCLUDING NON-PHARMACOLOGICAL PAIN REDUCTION TECHNIQUES [code = PT / PROGRAM CHECKER MAY EDUCATE ON PAIN MANAGEMENT CLINICALLY INDICATED, INCLUDING NON-PHARMACOLOGICAL PAIN REDUCTION TECHNIQUES ] Future Scheduled Test PT / PROGRAM CHECKER T O INSTRUCT PATIENT/CAREGIVER ON RISK FOR HOSPITALIZATION/EMERGENCY ROOM VISITS, TEACH SIGNS AND SYMPTOMS THAT PUT PATIENT AT RISK, WHEN TO NOTIFY NURSE/PHYSICIAN OF COMPLICATIONS/DECLINE, AND WHEN TO CALL 911. [code = PT / PROGRAM CHECKER TO INSTRUCT PATIENT/CAREGIVER ON RISK FOR HOSPITALIZATION/EMERGENCY [...] INDEPENDENCE OF ADLS AND FUNCTIONAL TRANSFERS. BATHING/SHOWERING (OT/RETAIL SELLING FLOOR LEADER) ACTIVITIES OF DAILY LIVING (OT/FORTINO) BATH/SHOWER TRANSFER (OT/FORTINO) OT/FORTINO TO MONITOR AND EDUCATE ON OXYGEN SATURATION DURING ADLS/IADLS, NOTIFY PHYSICIAN AND/OR THE RN CLINICAL UNDERWEAR HEMMER FOR PHYSICIAN NOTIFICATION AND IF O2 SATS BELOW 90% AFTER 10 MIN OF REST. OT/FORTINO MAY EDUCATE ON PAIN MANAGEMENT CLINICALLY INDICATED, INCLUDING NON-PHARMACOLOGICAL PAIN REDUCTION TECHNIQUES OT / RETAIL SELLING FLOOR LEADER TO IDENTIFY FALL RISK FACTORS; EDUCATE THE PATIENT/CAREGIVER ON WAYS TO REDUCE FALL RISK FACTORS AND ESTABLISH HOME EXERCISE PROGRAM TO MINIMIZE FALL RISK. MAY TEACH THE PATIENT FLOOR RECOVERY WHEN CLINICALLY APPROPRIATE. OT/RETAIL SELLING FLOOR LEADER TO EDUCATE ON HYPERTENSION SELF-MANAGEMENT [code = AGENCY MAY PERFORM A RESUMPTION OF CARE VISIT FOLLOWING ANY HOSPITAL ADMISSION. OT TO EVALUATE, OBSERVE / ASSESS, AND MONITOR, RETAIL SELLING FLOOR LEADER TO OBSERVE AND MONITOR, PROVIDE SKILLED THERAPEUTIC INTERVENTION, ACTIVITY, EDUCATION, AND TRAINING TO ADDRESS SAFETY AND INDEPENDENCE OF ADLS AND FUNCTIONAL TRANSFERS. BATHING/SHOWERING (OT/RETAIL SELLING FLOOR LEADER) ACTIVITIES OF DAILY LIVING (OT/FORTINO) BATH/SHOWER TRANSFER (OT/FORTINO) OT/FORTINO TO MONITOR AND EDUCATE ON OXYGEN SATURATION DURING ADLS/IADLS, NOTIFY PHYSICIAN AND/OR THE RN CLINICAL UNDERWEAR HEMMER FOR PHYSICIAN NOTIFICATION AND IF O2 SATS BELOW 90% AFTER 10 MIN OF REST. OT/FORTINO MAY EDUCATE ON PAIN MANAGEMENT CLINICALLY INDICATED, INCLUDING NON-PHARMACOLOGICAL PAIN REDUCTION TECHNIQUES OT / RETAIL SELLING FLOOR LEADER TO IDENTIFY FALL RISK FACTORS; EDUCATE THE [...] End Date/Time Encounter Type Admission Type Attending [facility] Care Department Encounter ID Discharge Date Discharge Status Discharge Condition Discharge Reason Percent Goals Met 2024-03-14:00:00 2024-05-12 00:00:00 Outpatient NEW ADMISSION [facility] [id number] 13.04
[2024-03-31 09:44] LABS: Hemoglobin 13.6 g/dL (12.0-15.0); Mean Corpuscular HGB Conc 32.4 g/dl (32-36); Mean Corpuscular Hemoglobin 30.8 pg (26-34); Mean Platelet Volume 11.4 fl (7.4-10.4); Platelet Count Result 346 k/mm3 (150-375); Red Blood Count 4.42 M/mm3 (4.2-5.4); Red Cell Distribution Width 13.6 % (11.5-14.5); White Blood Count 6.3 K/mm3 (4.5-10.0)
[2024-03-31 09:55] LABS: Alanine Aminotransferase 13 U/L (6-35); Albumin Level 4.2 g/dL (3.5-5.1); Alkaline Phosphatase 136 U/L (38-126); Anion Gap 11 mmol/L (4-12); Aspartate Amino Transferase 19 U/L (14-36); Bilirubin,Total 0.8 mg/dL (0.2-1.3); Blood Urea Nitrogen 11 mg/dL (7-17); Calcium 10.4 mg/dL (8.4-10.2); Carbon Dioxide 25 mmol/L (22-30); Chloride 105 mmol/L (98-107); Cholesterol 182 mg/dL (0-200); Estimated Glomerular Filt Rate > 60; Glucose 107 mg/dL (65-110); HDL Direct 47 mg/dL; Potassium 3.6 mmol/L (3.4-5.0); Sodium 141 mmol/L (137-145); Triglycerides 95 mg/dL (<150)
[2024-03-31 10:06] LABS: LDL Cholesterol Direct 101 mg/dL
[2024-03-31 10:10] LABS: Parathyroid Intact 84.2 pg/mL (14.5-75.2)
[2024-03-31 10:31] LABS: Iron 92 ug/dL (37-170)
[2024-03-31 10:42] LABS: Percent Iron Saturation 26 % (20-50)
[2024-03-31 10:57] LABS: Vitamin D 25 Hydroxy 79.1 ng/mL
== END 2024-03-31 08:47 | disposition home or self-care (01) ==
PROVIDERS: PCP Family Medicine; Visit Provider Family Medicine
DX: Z12.31 Encounter for screening mammogram for malignant neoplasm of breast (principal); M81.0 Age-related osteoporosis without current pathological fracture; M85.89 Other specified disorders of bone density and structure, multiple sites; R73.03 Prediabetes; E61.1 Iron deficiency; E78.2 Mixed hyperlipidemia; E55.9 Vitamin D deficiency, unspecified; E21.3 Hyperparathyroidism, unspecified; Z78.0 Asymptomatic menopausal state; Z13.820 Encounter for screening for osteoporosis
CPT/HCPCS: 36415; 77063; 77067; 77080; 80053; 80061; 82306; 82728; 83036; 83540; 83550; 83970; 85027

== ENCOUNTER 2024-10-17 07:10 | Outpatient (CLI) | payer MEDICARE, SELFPAY ==
[2024-10-17 08:25] LABS: Alanine Aminotransferase 16 U/L (6-35); Albumin Level 4.0 g/dL (3.5-5.1); Alkaline Phosphatase 121 U/L (38-126); Anion Gap 8 mmol/L (4-12); Aspartate Amino Transferase 28 U/L (14-36); Bilirubin,Total 0.5 mg/dL (0.2-1.3); Blood Urea Nitrogen 15 mg/dL (7-17); Calcium 9.8 mg/dL (8.4-10.2); Carbon Dioxide 26 mmol/L (22-30); Chloride 104 mmol/L (98-107); Cholesterol 176 mg/dL (0-200); Estimated Glomerular Filt Rate > 60; Glucose 101 mg/dL (65-110); HDL Direct 46 mg/dL; Potassium 3.7 mmol/L (3.4-5.0); Sodium 138 mmol/L (137-145); Total Protein 7.9 g/dL (6.3-8.2); Triglycerides 58 mg/dL (<150)
[2024-10-17 08:55] LABS: Thyroid Stimulating Hormone Reflex 0.276 uIU/mL (0.465-4.68)
[2024-10-17 09:08] LABS: Hemoglobin A1C 6.0 % (<5.7)
[2024-10-17 11:05] LABS: Free T4 Free Thyroxine Reflex 1.54 ng/dL (0.78-2.19)
[2024-10-17 11:58] LABS: Total Triiodothyronine (T3) 0.99 NG/ML (0.82-1.58)
== END 2024-10-17 07:11 | disposition home or self-care (01) ==
PROVIDERS: PCP Family Medicine; Visit Provider Family Medicine
DX: E78.2 Mixed hyperlipidemia (principal); R53.83 Other fatigue; I10 Essential (primary) hypertension; R73.03 Prediabetes
CPT/HCPCS: 36415; 80053; 80061; 83036; 84439; 84443; 84480